=== PATIENT | male | born 1950 | race Caucasian/White ===

== ENCOUNTER 2016-04-24 15:08 | Inpatient (IN) | payer OTHER ==
--- NOTE | 2016-04-24 16:35 | PDOC ---
History of Present Illness - General History Source: Patient Exam Limitations: Clinical Condition - History of Present Illness Initial Comments: 04/24/16 16:48 The patient is a 65 yo M with significant past medical history of seizures, hypertension, and Schizophrenia who presents to the emergency department when he was found wondering around the [place] after leaving his assisted living facility, [facility] in [place]. The patient states he was going to the cemetery to look for someones grave. The patient states he got lost coming home from the cemetery. He denies any pain. He denies any headaches, blurry vision. He denies any chest pain or shortness of breath. The patient denies any abdominal pain, nausea, or vomiting. The patient denies recent illness, fevers, or chills. He denies any hallucinations or suicidal ideation. <Lupe Sims - Last Filed: 04/24/16 16:51> - General History Source: Patient, Old Records Exam Limitations: No Limitations <Gillian Sanders - Last Filed: 04/24/16 19:31> - General Chief Complaint: Altered Mental Status Stated Complaint: PSYCH Time Seen by Provider: 04/24/16 16:09 Past History <Lupe Sims - Last Filed: 04/24/16 16:51> - Past Medical History GI Disorders: Yes HTN: Yes Psychiatric Problems: Yes Suicide Attempt (Hx): No - Surgical History Abdominal Surgery: Yes (RECTAL POLYP REMOVED) - Immunization History Immunization Up to Date: Yes - Psycho/Social/Smoking Cessation Hx Anxiety: No Suicidal Ideation: No Smoking Status: No Smoking History: Never smoked Years of Tobacco Use: 0 Number of Cigarettes Smoked Daily: 0 Hx Alcohol Use: No Drug/Substance Use Hx: No Substance Use Type: None <Gillian Sanders - Last Filed: 04/24/16 19:31> - Past Medical History Allergies/Adverse Reactions: Allergies Allergy/AdvReac Type Severity Reaction Status Date / Time No Known Allergies Allergy Verified 04/24/16 15:31 Home Medications: Ambulatory Orders Aspirin [ASA -] 81 mg PO DAILY 02/12/16 Cholecalciferol (Vitamin D3) [Vitamin D3] 2,000 unit PO DAILY 02/12/16 Clonazepam 0.25 mg PO BID 02/12/16 Cyanocobalamin (Vitamin B-12) [Vitamin B-12] 1,000 mcg SL DAILY 02/12/16 Docusate Sodium 240 mg PO HS 02/12/16 Donepezil HCl 5 mg PO DAILY 02/12/16 Ergocalciferol (Vitamin D2) [Vitamin D2] 5,000 unit PO WEEKLY 02/12/16 Levothyroxine Sodium [Levo-T] 75 mcg PO DAILY 02/12/16 Nifedipine ER [Procardia XL -] 60 mg PO DAILY 02/12/16 Omeprazole 20 mg PO BID 02/12/16 Polyethylene Glycol 3350 [[id number]] 17 gm PO DAILY 02/12/16 Aspirin Coated [Ecotrin -] 81 mg PO DAILY #0 tablet.ec 02/19/16 Clonazepam [Klonopin -] 0.25 mg PO BID #60 tablet MDD 2 02/19/16 Donepezil HCl [Aricept -] 5 mg PO DAILY #0 tablet 02/19/16 Levothyroxine [Synthroid -] 75 mcg PO DAILY@0700 tablet 02/19/16 Nifedipine ER [Procardia XL -] 60 mg PO DAILY #0 tab.er.24 02/19/16 Thiothixene [Navane -] 2 mg PO HS capsule 02/19/16 Unobtainable 04/24/16 Review of Systems - Review of Systems Able to Perform ROS?: No (AMS) <Lupe Sims - Last Filed: 04/24/16 16:51> *Physical Exam - Vital Signs Last Vital Signs Temp Pulse Resp BP Pulse Ox 97.6 F 64 18 94/54 96 04/24/16 15:31 04/24/16 15:31 04/24/16 15:31 04/24/16 15:31 04/24/16 15:31 - Physical Exam Comments: 04/24/16 16:49 GENERAL: Awake, alert, and fully oriented, in no acute distress. +Flat affect. HEAD: No signs of trauma EYES: PERRLA, EOMI, sclera anicteric, conjunctiva clear ENT: Auricles normal inspection, hearing grossly normal, nares patent, oropharynx clear without exudates. Moist mucosa NECK: Normal ROM, supple, no lymphadenopathy, JVD, or masses LUNGS: Breath sounds equal, clear to auscultation bilaterally. No wheezes, and no crackles HEART: Regular rate and rhythm, normal S1 and S2, no murmurs, rubs or gallops ABDOMEN: Soft, nontender, normoactive bowel sounds. No guarding, no rebound. No masses EXTREMITIES: Normal range of motion, no edema. No clubbing or cyanosis. No cords, erythema, or tenderness NEUROLOGICAL: Cranial nerves II through XII grossly intact. Normal speech, normal gait SKIN: Warm, Dry, normal turgor, no rashes or lesions noted. <Lupe Sims - Last Filed: 04/24/16 16:51> - Vital Signs Last Vital Signs Temp Pulse Resp BP Pulse Ox 97.6 F 64 18 94/54 96 04/24/16 15:31 04/24/16 15:31 04/24/16 15:31 04/24/16 15:31 04/24/16 15:31 <Gillian Sanders - Last Filed: 04/24/16 19:31> ED Treatment Course - LABORATORY CBC & Chemistry Diagram: 04/24/16 16:54 04/24/16 16:54 <Gillian Sanders - Last Filed: 04/24/16 19:31> Medical Decision Making - Medical Decision Making 04/24/16 16:42 65 y/o male with h/o chronic schizoaffective disorder, hypothyroid disease, DM, seizure d/o-on K[place] who presents to the ED s/p being found wandering in the street looking for Jenni Munoz's grave; he is hypotensive. FSG is 84. The patient denies SI/HI, hallucinations. DDx includes but is not limited to: infection, dehydration, electrolyte abnormality, intoxication, toxic/metabolic derangement. Plan: 1. Labs and urine 2. IVF for hydration 3. CXR 4. Observe and re-evaluate 04/24/16 18:39 Addendum: The labs were reviewed and were remarkable for troponin of 0.45. The patient has no CP and EKG shows NSR at 65 bpm with APC's. Will admit to a monitored setting for serial cardiac enzymes, cardiology consultation and NSTEMI. <Gillian Sanders - Last Filed: 04/24/16 19:31> *DC/Admit/Observation/Transfer - Attestations Scribe Attestion: 04/24/16 16:50 Documentation prepared by Lupe Sims, acting as medical research tech for Gillian Sanders MD. <Lupe Sims - Last Filed: 04/24/16 16:51> - Discharge Dispostion Admit: Yes - Attestations Physician Attestion: 04/24/16 18:40 I, Dr. Gillian Sanders, attest that the scribes documentation that appears above has been prepared under my direction and personally reviewed by me in its entirety. I confirmed that the note above accurately reflects all work, treatment, procedures, and medical decision-making performed by me. <Gillian Sanders - Last Filed: 04/24/16 19:31> Diagnosis at time of Disposition: Precordial chest pain - Discharge Dispostion Condition at time of disposition: Stable
[2016-04-24] MEDS ORDERED: SODIUM CHLORIDE 1,000 ML IV STA (16:38)
[2016-04-24 17:12] LABS: BASOPHIL 0.4 % (0-2.0); EOSINOPHIL 0.1 % (0-4.5); MCH 32.1 pg (25.7-33.7); MCHC 33.7 g/dl (32.0-35.9); MEAN CELL VOLUME 95.3 fl (80-96); MEAN PLT VOLUME 7.4 fl (7.5-11.1); NEUTROPHILS 83.7 % (42.8-82.8); PLATELET COUNT 196 K/MM3 (134-434); RDW 13.3 % (11.9-15.9); WHITE BLOOD COUNT 10.1 K/mm3 (4.0-10.0)
[2016-04-24 17:36] LABS: URINE APPEARANCE SLCLOUDY; URINE BILIRUBIN NEGATIVE (NEGATIVE); URINE COLOR YELLOW; URINE GLUCOSE (UA) NEGATIVE (NEGATIVE); URINE KETONE 1+ (NEGATIVE); URINE NITRITE NEGATIVE (NEGATIVE); URINE PROTEIN NEGATIVE (NEGATIVE); URINE UROBILINOGEN NEGATIVE E.U./dl (0.2-1.0)
[2016-04-24 17:40] LABS: URINE BLOOD 1+ (NEGATIVE); URINE LEUK ESTERASE 2+ (NEGATIVE)
[2016-04-24 17:45] LABS: ALBUMIN 3.9 g/dl (3.4-5.0); ANION GAP 10 (8-16); BILIRUBIN,TOTAL 0.5 mg/dL (0.2-1.0); CO2 28 mmol/L (21-32); CREATININE 0.9 mg/dL (0.7-1.3); GLUCOSE,RANDOM 77 mg/dL (74-106); SGOT/AST 35 U/L (15-37); SGPT/ALT 17 U/L (12-78); TOT PROT 7.2 g/dl (6.4-8.2)
[2016-04-24 17:47] LABS: ALK PHOS 99 U/L (45-117); TROPONIN I 0.45 ng/ml (0.00-0.05)
[2016-04-24 17:57] LABS: MAGNESIUM 2.3 mg/dL (1.8-2.4)
[2016-04-24 18:04] LABS: URINE HYALINE CAST 5 /lpf; URINE MUCUS RARE; URINE RBC 1 /hpf (0-3); URINE WBC 64 /hpf (3-5)
[2016-04-24 18:20] LABS: URINE MARIJUANA THC NEGATIVE ng/ml (CUTOFF=50)
[2016-04-24] MEDS ORDERED: ACETAMINOPHEN 325 MG TABLET (FP) PO ONE (19:03)
[2016-04-24] MEDS ORDERED: ACETAMINOPHEN 325 MG TABLET (FP) ONE (19:22)
[2016-04-24] MEDS ORDERED: ASPIRIN 81 MG CHEWABLE TABLETS PO ONE (19:30)
[2016-04-24] MEDS ORDERED: ASPIRIN 81 MG CHEWABLE TABLETS ONE (19:40)
[2016-04-25] MEDS: THIOTHIXENE 1 MG PO SCH ×2 (00:05→22:15)
[2016-04-25] MEDS: DOCUSATE SODIUM 100 MG CAPSULE (FP) PO SCH ×2 (00:05→22:14)
[2016-04-25] MEDS: clonazePAM 0.5 MG TABLET PO SCH ×3 (00:06→22:14)
[2016-04-25] MEDS: PANTOPRAZOLE 20 MG TABLET (FP) PO SCH ×3 (00:06→22:15)
[2016-04-25 01:09] LABS: TROPONIN I 0.97 ng/ml (0.00-0.05)
[2016-04-25 01:15] VITALS: BMI 23.0
--- NOTE | 2016-04-25 02:07 | HOSP ---
Physical Examination Vital Signs: Vital Signs Temperature 97.8 F 04/24/16 22:00 Pulse Rate 64 04/24/16 22:00 Respiratory Rate 20 04/24/16 22:00 Blood Pressure 122/75 04/24/16 22:00 O2 Sat by Pulse Oximetry (%) 95 04/24/16 22:00 Hospitalist Encounter Assessment: Was called by RN about rising troponin, serial EKGs ordered which showed no ST- T changes. Patient is under the care of Dr. Diaz, RN advised to inform this doctor about results of studies and she verbalized understanding.
[2016-04-25 08:11] LABS: EOSINOPHIL 1.7 % (0-4.5); MCH 32.5 pg (25.7-33.7); MCHC 34.1 g/dl (32.0-35.9); MEAN CELL VOLUME 95.2 fl (80-96); MEAN PLT VOLUME 7.5 fl (7.5-11.1); NEUTROPHILS 56.5 % (42.8-82.8); PLATELET COUNT 148 K/MM3 (134-434); WHITE BLOOD COUNT 5.5 K/mm3 (4.0-10.0)
[2016-04-25 08:50] LABS: ALBUMIN 3.4 g/dl (3.4-5.0); ANION GAP 10 (8-16); BILIRUBIN,TOTAL 0.8 mg/dL (0.2-1.0); CALCIUM 8.4 mg/dL (8.5-10.1); CHOLESTEROL 123 mg/dL (50-200); CO2 28 mmol/L (21-32); CREATININE 0.9 mg/dL (0.7-1.3); GLUCOSE,RANDOM 78 mg/dL (74-106); TOT PROT 6.5 g/dl (6.4-8.2)
[2016-04-25 08:51] LABS: ALK PHOS 82 U/L (45-117); SGOT/AST 40 U/L (15-37); SGPT/ALT 16 U/L (12-78)
[2016-04-25 09:25] LABS: LDL CHOLESTEROL (ONLY SJRH) 71 mg/dL (5-100)
[2016-04-25] MEDS: ASPIRIN 325 MG TABLET PO SCH (10:17)
[2016-04-25] MEDS: NIFEdipine E.R 60 MG TABLET (UD) PO SCH (10:17)
--- NOTE | 2016-04-25 11:06 | CON.CARD ---
Consult Consult Specialty:: Cardiology Referred by:: Dr. Diaz Reason for Consultation:: Cardiac evaluation - History of Present Illness Chief Complaint: Leg pain History of Present Illness: Patient is a 65 year old male with underlying history of seizures, hypertension and schizophrenia who presented to ED after wandering in [place] after leaving the assisted living facility in [place]. He states that he was walking in the cemetery but got lost coming home. It is unclear how he got to [place]. He denies chest pain, shortness of breath or palpitation. Denies paroxysmal nocturnal dyspea or orthopnea. Denies fever or chills. Denies headache or lightheadedness. Cardiology consultation was called for further evaluation especially with elevated troponin level. 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 disorder) Cardio/Vascular: Yes: HTN, Hyperlipdemia, Other (orthostatic hypotension) Psych: Yes: Schizophrenia Endocrine: Yes: Diabetes Mellitus - Past Surgical History Past Surgical History: Yes: Colonoscopy, Hernia Repair - Alcohol/Substance Use Hx Alcohol Use: No - Smoking History Smoking history: Unknown if ever smoked Have you smoked in the past 12 months: No Aproximately how many cigarettes per day: 0 - Social History Usual Living Arrangement: Assisted Living Home Medications - Allergies Allergies/Adverse Reactions: Allergies Allergy/AdvReac Type Severity Reaction Status Date / Time No Known Allergies Allergy Verified 04/24/16 15:31 - Home Medications Home Medications: Ambulatory Orders Aspirin [ASA -] 81 mg PO DAILY 02/12/16 Cholecalciferol (Vitamin D3) [Vitamin D3] 2,000 unit PO DAILY 02/12/16 Clonazepam 0.25 mg PO BID 02/12/16 Cyanocobalamin (Vitamin B-12) [Vitamin B-12] 1,000 mcg SL DAILY 02/12/16 Docusate Sodium 240 mg PO HS 02/12/16 Donepezil HCl 5 mg PO DAILY 02/12/16 Ergocalciferol (Vitamin D2) [Vitamin D2] 5,000 unit PO WEEKLY 02/12/16 Levothyroxine Sodium [Levo-T] 75 mcg PO DAILY 02/12/16 Nifedipine ER [Procardia XL -] 60 mg PO DAILY 02/12/16 Omeprazole 20 mg PO BID 11/14/16 Polyethylene Glycol 3350 [[id number]] 17 gm PO DAILY 02/12/16 Aspirin Coated [Ecotrin -] 81 mg PO DAILY #0 tablet.ec 02/19/16 Clonazepam [Klonopin -] 0.25 mg PO BID #60 tablet MDD 2 02/19/16 Donepezil HCl [Aricept -] 5 mg PO DAILY #0 tablet 02/19/16 Levothyroxine [Synthroid -] 75 mcg PO DAILY@0700 tablet 02/19/16 Nifedipine ER [Procardia XL -] 60 mg PO DAILY #0 tab.er.24 02/19/16 Thiothixene [Navane -] 2 mg PO HS capsule 02/19/16 Unobtainable 04/24/16 Family Disease History - Family Disease History Family History: Unable to Obtain Review of Systems - Review of Systems Constitutional: denies: Chills, Fever Cardiovascular: denies: Chest Pain, Palpitations, Shortness of Breath Respiratory: denies: Cough, Hemoptysis, Orthopnea, PND, SOB, SOB on Exertion Gastrointestinal: denies: Abdominal Pain, Constipation, Diarrhea, Melena, Nausea , Rectal Bleeding, Vomiting Musculoskeletal: reports: Joint Pain Neurological: denies: Dizziness, Headache, Seizure, Syncope Vital Signs: Vital Signs Temperature 98.2 F 04/25/16 08:05 Pulse Rate 62 04/25/16 08:05 Respiratory Rate 14 04/25/16 08:05 Blood Pressure 134/80 04/25/16 08:05 O2 Sat by Pulse Oximetry (%) 95 04/24/16 22:00 Neck: Yes: Supple Respiratory: Yes: CTA Bilaterally Gastrointestinal: Yes: Normal Bowel Sounds, Soft. No: Tenderness Cardiovascular: Yes: Regular Rate and Rhythm JVD: No Carotid Bruit: No PMI: Non-Displaced Heart Sounds: Yes: S1, S2 Murmur: Yes: Systolic Murmur, Grade 2 Edema: No - Other Data Labs, Other Data: CBC, BMP 04/25/16 06:10 04/25/16 06:10 Laboratory Results - last 24 hr 04/24/16 04/24/16 04/24/16 16:37 16:43 16:54 WBC 10.1 H D RBC 3.70 L Hgb 11.9 Hct 35.3 L MCV 95.3 MCHC 33.7 RDW 13.3 Plt Count 196 D MPV 7.4 L Neutrophils % 83.7 H Lymphocytes % 8.9 D Monocytes % 6.9 Eosinophils % 0.1 D Basophils % 0.4 Sodium Potassium Chloride Carbon Dioxide Anion Gap BUN Creatinine Creat Clearance w eGFR POC Glucometer 84.47791 Random Glucose Calcium Phosphorus Magnesium Total Bilirubin AST ALT Alkaline Phosphatase Creatine Kinase Creatine Kinase Index CK-MB (CK-2) CK-MB (CK-2) Rel Index Troponin I Total Protein Albumin Triglycerides Cholesterol Total LDL Cholesterol HDL Cholesterol Urine Color Yellow Urine Appearance Slcloudy Urine pH 5.0 Ur Specific [place] 1.013 Urine Protein Negative Urine Glucose (UA) Negative Urine Ketones 1+ H Urine Blood 1+ H Urine Nitrite Negative Urine Bilirubin Negative Urine Urobilinogen Negative Ur Leukocyte Esterase 2+ H Urine RBC 1 Urine WBC 64 Hyaline Casts 5 Urine Mucus Rare Opiates Screen Methadone Screen Barbiturate Screen Phencyclidine Screen Ur Amphetamines Screen MDMA (Ecstasy) Screen Benzodiazepines Screen Cocaine Screen U Marijuana (THC) Screen Alcohol, Quantitative 04/24/16 04/24/16 04/24/16 16:54 16:54 16:54 WBC RBC Hgb Hct MCV MCHC RDW Plt Count MPV Neutrophils % Lymphocytes % Monocytes % Eosinophils % Basophils % Sodium 143 Potassium 4.6 Chloride 105 Carbon Dioxide 28 Anion Gap 10 BUN 21 H D Creatinine 0.9 D Creat Clearance w eGFR > 60 POC Glucometer Random Glucose 77 Calcium 9.0 Phosphorus 4.0 Magnesium 2.3 Total Bilirubin 0.5 D AST 35 D ALT 17 D Alkaline Phosphatase 99 D Creatine Kinase 871 H D Creatine Kinase Index 1.3 CK-MB (CK-2) 11.423 H CK-MB (CK-2) Rel Index Troponin I 0.45 H D Total Protein 7.2 D Albumin 3.9 D Triglycerides Cholesterol Total LDL Cholesterol HDL Cholesterol Urine Color Urine Appearance Urine pH Ur Specific [place] Urine Protein Urine Glucose (UA) Urine Ketones Urine Blood Urine Nitrite Urine Bilirubin Urine Urobilinogen Ur Leukocyte Esterase Urine RBC Urine WBC Hyaline Casts Urine Mucus Opiates Screen Negative Methadone Screen Negative Barbiturate Screen Negative Phencyclidine Screen Negative Ur Amphetamines Screen Negative MDMA (Ecstasy) Screen Negative Benzodiazepines Screen Negative Cocaine Screen Negative U Marijuana (THC) Screen Negative Alcohol, Quantitative < 5.0 04/24/16 04/24/16 04/24/16 16:54 23:30 23:30 WBC RBC Hgb Hct MCV MCHC RDW Plt Count MPV Neutrophils % Lymphocytes % Monocytes % Eosinophils % Basophils % Sodium Potassium Chloride Carbon Dioxide Anion Gap BUN Creatinine Creat Clearance w eGFR POC Glucometer Random Glucose Calcium Phosphorus Magnesium Total Bilirubin AST ALT Alkaline Phosphatase Creatine Kinase 1049 H D Creatine Kinase Index 1.1 CK-MB (CK-2) 11.646 H CK-MB (CK-2) Rel Index Cancelled Cancelled Troponin I 0.97 H* D Total Protein Albumin Triglycerides Cholesterol Total LDL Cholesterol HDL Cholesterol Urine Color Urine Appearance Urine pH Ur Specific [place] Urine Protein Urine Glucose (UA) Urine Ketones Urine Blood Urine Nitrite Urine Bilirubin Urine Urobilinogen Ur Leukocyte Esterase Urine RBC Urine WBC Hyaline Casts Urine Mucus Opiates Screen Methadone Screen Barbiturate Screen Phencyclidine Screen Ur Amphetamines Screen MDMA (Ecstasy) Screen Benzodiazepines Screen Cocaine Screen U Marijuana (THC) Screen Alcohol, Quantitative 04/25/16 04/25/16 06:10 06:10 WBC 5.5 D RBC 3.26 L Hgb 10.6 L D Hct 31.0 L MCV 95.2 MCHC 34.1 RDW 13.0 Plt Count 148 D MPV 7.5 Neutrophils % 56.5 D Lymphocytes % 30.8 D Monocytes % 10.0 Eosinophils % 1.7 D Basophils % 1.0 Sodium 140 Potassium 3.7 Chloride 102 Carbon Dioxide 28 Anion Gap 10 BUN 20 H Creatinine 0.9 Creat Clearance w eGFR > 60 POC Glucometer Random Glucose 78 Calcium 8.4 L Phosphorus Magnesium Total Bilirubin 0.8 D AST 40 H ALT 16 Alkaline Phosphatase 82 Creatine Kinase Creatine Kinase Index CK-MB (CK-2) CK-MB (CK-2) Rel Index Troponin I Total Protein 6.5 Albumin 3.4 Triglycerides 43 D Cholesterol 123 D Total LDL Cholesterol 71 HDL Cholesterol 61 H D Urine Color Urine Appearance Urine pH Ur Specific [place] Urine Protein Urine Glucose (UA) Urine Ketones Urine Blood Urine Nitrite Urine Bilirubin Urine Urobilinogen Ur Leukocyte Esterase Urine RBC Urine WBC Hyaline Casts Urine Mucus Opiates Screen Methadone Screen Barbiturate Screen Phencyclidine Screen Ur Amphetamines Screen MDMA (Ecstasy) Screen Benzodiazepines Screen Cocaine Screen U Marijuana (THC) Screen Alcohol, Quantitative Sinus rhythm no significant ST-T abnormality Imaging - Results Chest X-ray: Report Reviewed (Unremarkable) EKG: Report Reviewed Problem List - Problems (1) Precordial chest pain Code(s): R07.2 - PRECORDIAL PAIN (2) HTN (hypertension) Code(s): I10 - ESSENTIAL (PRIMARY) HYPERTENSION Qualifiers: Hypertension type: essential hypertension Qualified Code(s): I10 - Essential (primary) hypertension (3) Schizoaffective disorder Code(s): F25.9 - SCHIZOAFFECTIVE DISORDER, UNSPECIFIED Qualifiers: Schizoaffective disorder type: unspecified Qualified Code(s): F25.9 - Schizoaffective disorder, unspecified (4) Demand ischemia Code(s): I24.8 - OTHER FORMS OF ACUTE ISCHEMIC HEART DISEASE Assessment/Plan 1. Elevated troponin - demand ischemia, etiology unclear rule out CAD 2. HTN 3. Questionable history of Diabetes Mellitus - serum glucose normal 4. Schizophrenia vs. Schizo affective disorder PLAN: 1. Serial cardiac enzyme 2. Transthoracic echocardiography to assess LV and valvular function 3. Continue Procardia XL 4. ASA Further plans are to follow. Would maintain medical therapy Jayson Lenz MD
--- NOTE | 2016-04-25 14:12 | EKG ---
Test Reason : Blood Pressure : / mmHG Vent. Rate : 060 BPM Atrial Rate : 060 BPM P-R Int : 144 ms QRS Dur : 106 ms QT Int : 428 ms P-R-T Axes : 063 051 042 degrees QTc Int : 428 ms NORMAL SINUS RHYTHM MINIMAL VOLTAGE CRITERIA FOR LVH, MAY BE NORMAL VARIANT BORDERLINE ECG WHEN COMPARED WITH ECG OF 24-APR-2016 16:50, SINUS RHYTHM HAS REPLACED ATRIAL FIBRILLATION Confirmed by JAIRO LOTT, CHARLEEN ([id number]) on 04/25/2016 2:12:04 PM Referred By: Confirmed By:CHARLEEN GILL MD
--- NOTE | 2016-04-25 14:17 | EKG ---
Test Reason : Blood Pressure : / mmHG Vent. Rate : 065 BPM Atrial Rate : 065 BPM P-R Int : 000 ms QRS Dur : 096 ms QT Int : 434 ms P-R-T Axes : 000 060 050 degrees QTc Int : 451 ms SINUS RHYTHM WITH PREMATURE VENTRICULAR OR ABERRANTLY CONDUCTED COMPLEXES ABNORMAL ECG Confirmed by CHARLEEN GILL MD ([id number]) on 04/25/2016 2:17:06 PM Referred By: Confirmed By:CHARLEEN GILL MD
--- NOTE | 2016-04-25 16:14 | HP ---
Admitting History and Physical - Admission Chief Complaint: lost in [facility] History of Present Illness: 65 yo male with history of Schizoaffective disorder, got lost after walking for 2 hours trying to find the grave of Jenni Arndt. The previously mentioned grave is located in [facility] while the patient was found in [facility]. He was brought by a police man to [facility]. During the work up the patient was found to have elevated cardiac enzymes. He is not complaining of any chest pain, palpitations, or dyspnea. His only complaint are pain in the lower extremities. During my examination he is comfortable alert and oriented. 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) Cardiovascular: Yes: HTN, Hyperlipdemia, Other (orthostatic hypotension) Gastrointestinal: Yes: Constipation, Other (SBO, left uiguinal hernia repair) Heme/Onc: Yes: B12 Deficiency Psych: Yes: Schizophrenia Endocrine: Yes: Diabetes Mellitus Dermatology: Yes: Other (Vitiligo) - Past Surgical History Past Surgical History: Yes: Colonoscopy, Hernia Repair - Smoking History Smoking history: Unknown if ever smoked Have you smoked in the past 12 months: No Aproximately how many cigarettes per day: 0 - Alcohol/Substance Use Hx Alcohol Use: No Home Medications - Allergies Allergies/Adverse Reactions: Allergies Allergy/AdvReac Type Severity Reaction Status Date / Time No Known Allergies Allergy Verified 04/24/16 15:31 - Home Medications Home Medications: Ambulatory Orders Aspirin [ASA -] 81 mg PO DAILY 02/12/16 Cholecalciferol (Vitamin D3) [Vitamin D3] 2,000 unit PO DAILY 02/12/16 Clonazepam 0.25 mg PO BID 02/12/16 Cyanocobalamin (Vitamin B-12) [Vitamin B-12] 1,000 mcg SL DAILY 02/12/16 Docusate Sodium 240 mg PO HS 02/12/16 Donepezil HCl 5 mg PO DAILY 02/12/16 Ergocalciferol (Vitamin D2) [Vitamin D2] 5,000 unit PO WEEKLY 02/12/16 Levothyroxine Sodium [Levo-T] 75 mcg PO DAILY 02/12/16 Nifedipine ER [Procardia XL -] 60 mg PO DAILY 02/12/16 Omeprazole 20 mg PO BID 02/12/16 Polyethylene Glycol 3350 [[id number]] 17 gm PO DAILY 02/12/16 Aspirin Coated [Ecotrin -] 81 mg PO DAILY #0 tablet.ec 02/19/16 Clonazepam [Klonopin -] 0.25 mg PO BID #60 tablet MDD 2 02/19/16 Donepezil HCl [Aricept -] 5 mg PO DAILY #0 tablet 02/19/16 Levothyroxine [Synthroid -] 75 mcg PO DAILY@0700 tablet 02/19/16 Nifedipine ER [Procardia XL -] 60 mg PO DAILY #0 tab.er.24 02/19/16 Thiothixene [Navane -] 2 mg PO HS capsule 02/19/16 Unobtainable 04/24/16 Review of Systems - Review of Systems Constitutional: reports: No Symptoms Eyes: reports: No Symptoms HENT: reports: No Symptoms Neck: reports: No Symptoms Cardiovascular: reports: No Symptoms Respiratory: reports: No Symptoms Gastrointestinal: reports: No Symptoms Genitourinary: reports: No Symptoms Breasts: reports: No Symptoms Reported Musculoskeletal: reports: Muscle Pain, Other (the upper thighs bilaterally) Integumentary: reports: No Symptoms Neurological: reports: No Symptoms Physical Examination Vital Signs: Vital Signs Temperature 97.3 F L 04/25/16 14:18 Pulse Rate 61 04/25/16 14:18 Respiratory Rate 14 04/25/16 14:18 Blood Pressure 115/63 04/25/16 14:18 O2 Sat by Pulse Oximetry (%) 95 04/25/16 09:00 Labs: CBC, BMP 04/25/16 06:10 04/25/16 06:10 Problem List - Problems (1) Demand ischemia Code(s): I24.8 - OTHER FORMS OF ACUTE ISCHEMIC HEART DISEASE (2) HTN (hypertension) Code(s): I10 - ESSENTIAL (PRIMARY) HYPERTENSION Qualifiers: Hypertension type: essential hypertension Qualified Code(s): I10 - Essential (primary) hypertension (3) Schizoaffective disorder Code(s): F25.9 - SCHIZOAFFECTIVE DISORDER, UNSPECIFIED Qualifiers: Schizoaffective disorder type: unspecified Qualified Code(s): F25.9 - Schizoaffective disorder, unspecified (4) Cholelithiases Code(s): K80.20 - CALCULUS OF GALLBLADDER W/O CHOLECYSTITIS W/O OBSTRUCTION
[2016-04-26 08:50] LABS: TROPONIN I 0.67 ng/ml (0.00-0.05)
[2016-04-26] MEDS: ASPIRIN 325 MG TABLET PO SCH (09:49)
[2016-04-26] MEDS: PANTOPRAZOLE 20 MG TABLET (FP) PO SCH ×2 (09:49→21:38)
[2016-04-26] MEDS: NIFEdipine E.R 60 MG TABLET (UD) PO SCH (09:49)
[2016-04-26] MEDS: clonazePAM 0.5 MG TABLET PO SCH ×2 (09:49→21:38)
--- NOTE | 2016-04-26 11:05 | PN ---
Progress Note (short form) - Note Progress Note: S: 65 year old gentleman, with history of hypertension, psychological disorder, seizures, who resides in an adult assisted living facility, was lost while trying to get to a cemetery and was found in the [place]. He denies having chest pain or discomfort either at rest or with exertion, no exertional dyspnea was reported, no PND or orthopnea. Patient also has history of hyperthyroidism, vitamin D deficiency. Patient was found to have elevation of total CK and troponin levels. Active Medications Generic Name Dose Route Start Last Admin Trade Name Veronica PRN Reason Stop Dose Admin Aspirin 325 mg 04/25/16 10:00 04/26/16 09:49 Asa - PO 325 mg DAILY MARIA TERESA Administration Clonazepam 0.25 mg 04/24/16 22:45 04/26/16 09:49 Klonopin - PO 0.25 mg BID MARIA TERESA Administration Docusate Sodium 200 mg 04/24/16 22:45 04/25/16 22:14 Colace - PO 200 mg HS MARIA TERESA Administration Nifedipine 60 mg 04/25/16 10:00 04/26/16 09:49 Procardia Xl - PO 60 mg DAILY MARIA TERESA Administration Pantoprazole Sodium 20 mg 04/24/16 22:45 04/26/16 09:49 Protonix - PO 20 mg BID MARIA TERESA Administration Thiothixene 2 mg 04/24/16 22:30 04/25/16 22:15 Navane - PO 2 mg HS MARIA TERESA Administration O: 65 year old male was in no acute distress, no pallor, cyanosis, clubbing, or jaundice. Last Vital Signs Temp Pulse Resp BP Pulse Ox 98.2 F 58 L Regular 14 130/86 100 04/26/16 08:00 04/26/16 08:00 04/26/16 08:00 04/26/16 08:00 04/25/16 21:00 Neck: Supple, no JVD, negative HJR, carotids were equal and upstrokes were normal, no thyromegaly appreciated. Heart: PMI was in the 5th intercostal space, no heaves or thrills, S1 and S2 were normal. No murmurs or gallops were appreciated. Lungs: Clear on auscultation bilaterally. Abdomen: Soft, nontender, no hepatosplenomegaly appreciated, and no palpable masses were felt. Extremities: No calf tenderness or dependent edema. Pulses are normal. CBC, BMP 04/25/16 06:10 04/25/16 06:10 Laboratory Results - last 24 hr 04/26/16 04/26/16 05:35 05:35 Creatine Kinase 863 H Creatine Kinase Index 0.6 CK-MB (CK-2) 5.482 H CK-MB (CK-2) Rel Index Cancelled Troponin I 0.67 H* D Impression: (1) Elevated Ck and Troponin are consistent with mycordial injury. Code(s): R79.89 - OTHER SPECIFIED ABNORMAL FINDINGS OF BLOOD CHEMISTRY (2) Anemia with further drop in hematocrit, etiology needs to be determined. Code(s): D64.9 - ANEMIA, UNSPECIFIED (3) HTN (hypertension) Code(s): I10 - ESSENTIAL (PRIMARY) HYPERTENSION Qualifiers: Hypertension type: essential hypertension Qualified Code(s): I10 - Essential (primary) hypertension (4) Schizoaffective disorder Code(s): F25.9 - SCHIZOAFFECTIVE DISORDER, UNSPECIFIED Qualifiers: Schizoaffective disorder type: unspecified Qualified Code(s): F25.9 - Schizoaffective disorder, unspecified (5) History of seizure disorder Code(s): R56.9 - UNSPECIFIED CONVULSIONS Recommendations: 1. Add beta blockers to the regimen. 2. Evaluation of anemia. 3. Patient should have a stress test prior to discharge. Attestation: Documentation prepared by Abhilash Sauceda, acting as bacteriologist medical for Rajeev Corbett MD.
[2016-04-26] MEDS: METOPROLOL SUCCINATE 25 MG TAB.SR.24H (FP) PO SCH (13:42)
--- NOTE | 2016-04-26 14:01 | PN ---
Progress Note, Physician Chief Complaint: PAtient is agitated and wants to go home , denies any chest pain, or palpitation. HE IS DRESSED AND READY TO GO History of Present Illness: 65 yo male found to have elevated cardiac enzymes after walking for 2 hours. The patient did not recall any episodes of chest pain or dyspnea. He is asymptomatic since admission and is waiting for a stress test. His cardiac enzymes have been minimally elevated but without EKG changes - Current Medication List Current Medications: Active Medications Aspirin (Asa -) 325 mg PO DAILY [facility] Last Admin: 04/26/16 09:49 Dose: 325 mg Clonazepam (Klonopin -) 0.25 mg PO BID [facility] Last Admin: 04/26/16 09:49 Dose: 0.25 mg Docusate Sodium (Colace -) 200 mg PO [facility] Last Admin: 04/25/16 22:14 Dose: 200 mg Metoprolol Succinate (Toprol Xl -) 25 mg PO DAILY [facility] Last Admin: 04/26/16 13:42 Dose: 25 mg Nifedipine (Procardia Xl -) 60 mg PO DAILY [facility] Last Admin: 04/26/16 09:49 Dose: 60 mg Pantoprazole Sodium (Protonix -) 20 mg PO BID [facility] Last Admin: 04/26/16 09:49 Dose: 20 mg Thiothixene (Navane -) 2 mg PO [facility] Last Admin: 04/25/16 22:15 Dose: 2 mg - Objective Vital Signs: Vital Signs Temperature 98.2 F 04/26/16 08:00 Pulse Rate 58 L 04/26/16 08:00 Respiratory Rate 14 04/26/16 08:00 Blood Pressure 130/86 04/26/16 08:00 O2 Sat by Pulse Oximetry (%) 96 04/26/16 09:00 Constitutional: Yes: No Distress, Calm Eyes: Yes: Conjunctiva Clear, EOM Intact HENT: Yes: Atraumatic, Normocephalic, Drooling Neck: Yes: Supple, Trachea Midline Cardiovascular: Yes: Regular Rate and Rhythm, S1, S2 Respiratory: Yes: Regular, CTA Bilaterally Gastrointestinal: Yes: Normal Bowel Sounds, Soft, Abdomen, Obese ...Rectal Exam: Yes: Deferred Breast(s): Yes: WNL Musculoskeletal: No: Joint Stiffness, Muscle Weakness Extremities: Yes: WNL. No: Calf Tenderness Edema: No Integumentary: Yes: WNL Labs: CBC, BMP 04/25/16 06:10 04/25/16 06:10 Problem List - Problems (1) Demand ischemia Assessment/Plan: with elevation of the cardiac enzymes but no complaints of chest pain as per patient Code(s): I24.8 - OTHER FORMS OF ACUTE ISCHEMIC HEART DISEASE (2) HTN (hypertension) Assessment/Plan: controlled Code(s): I10 - ESSENTIAL (PRIMARY) HYPERTENSION Qualifiers: Hypertension type: essential hypertension Qualified Code(s): I10 - Essential (primary) hypertension (3) Schizoaffective disorder Assessment/Plan: controlled , no delusions Code(s): F25.9 - SCHIZOAFFECTIVE DISORDER, UNSPECIFIED Qualifiers: Schizoaffective disorder type: unspecified Qualified Code(s): F25.9 - Schizoaffective disorder, unspecified (4) Cholelithiases Assessment/Plan: no complaints Code(s): K80.20 - CALCULUS OF GALLBLADDER W/O CHOLECYSTITIS W/O OBSTRUCTION
[2016-04-26] MEDS ORDERED: PT OWN MED DRAWER 7, Y5N ONE (21:16)
[2016-04-26] MEDS: DOCUSATE SODIUM 100 MG CAPSULE (FP) PO SCH (21:38)
[2016-04-26] MEDS: THIOTHIXENE 1 MG PO SCH (21:38)
[2016-04-27] MEDS: METOPROLOL SUCCINATE 25 MG TAB.SR.24H (FP) PO SCH (09:34)
[2016-04-27] MEDS: ASPIRIN 325 MG TABLET PO SCH (09:34)
[2016-04-27] MEDS: NIFEdipine E.R 60 MG TABLET (UD) PO SCH (09:34)
[2016-04-27] MEDS: PANTOPRAZOLE 20 MG TABLET (FP) PO SCH ×2 (09:34→21:31)
[2016-04-27] MEDS: clonazePAM 0.5 MG TABLET PO SCH ×2 (09:34→21:31)
--- NOTE | 2016-04-27 13:50 | PN ---
Progress Note (short form) - Note Progress Note: Chief Complaint: Events noted, notes reviewed, denies any chest pain or dyspnea History of Present Illness: Seen and examined on telemetry. Events noted, notes reviewed, denies any chest pain or dyspnea Patient stated that he wants to be D/C home Echocardiography dated 04/25/16 revealed normal LV size and function, with trace AR and TR Medications: Current Medications Aspirin (Asa -) 325 mg PO DAILY [facility] Last Admin: 04/27/16 09:34 Dose: 325 mg Clonazepam (Klonopin -) 0.25 mg PO BID [facility] Last Admin: 04/27/16 09:34 Dose: 0.25 mg Docusate Sodium (Colace -) 200 mg PO [facility] Last Admin: 04/26/16 21:38 Dose: 200 mg Metoprolol Succinate (Toprol Xl -) 25 mg PO DAILY [facility] Last Admin: 04/27/16 09:34 Dose: 25 mg Nifedipine (Procardia Xl -) 60 mg PO DAILY [facility] Last Admin: 04/27/16 09:34 Dose: 60 mg Pantoprazole Sodium (Protonix -) 20 mg PO BID [facility] Last Admin: 04/27/16 09:34 Dose: 20 mg Thiothixene (Navane -) 2 mg PO [facility] Last Admin: 04/26/16 21:38 Dose: 2 mg Review of Systems - Review of Systems Constitutional: denies: Chills, Fever Cardiovascular: As noted above Respiratory: denies: Cough or Sputum Production Gastrointestinal: denies: Nausea, Vomiting, Diarrhea, Constipation or Abdominal Pain Musculoskeletal: reports: Joint Pain Neurological: denies: Dizziness or Headaches Vital Signs: Last Vital Signs Temp Pulse Resp BP Pulse Ox 98 F 56 L 18 119/78 96 04/27/16 08:00 04/27/16 08:00 04/27/16 08:00 04/27/16 08:00 04/26/16 21:00 Neck: Supple Negative JVD No bruit Respiratory: Clear to A&P Bilaterally Cardiovascular: S1 S2 Regular Rate and Rhythm Grade 2/6 SM Gastrointestinal: Soft Benign Normal Bowel Sounds Ext: No Edema Labs: CBC, BMP 04/25/16 06:10 04/25/16 06:10 Assessment/Plan ASSESSMENT: 1. CAD angina pectoris with evidence of demand ischemia with normal LV function and no acute EKG changes 2. HTN 3. Anemia 4. Schizophrenia PLAN: 1. Continue Procardia XL 2. Continue Toprol XL 3. Continue ASA 4. Add Lipitor considering the above noted clinical presentation 5. Recommend MPI study by Friday if agreeable Vanessa Welch MD
--- NOTE | 2016-04-27 17:26 | PN ---
Progress Note, Physician Chief Complaint: PAteint was agitated earlier today and wanted to go home , denies any chest pain, or palpitation. Eating well and with good appetite History of Present Illness: 65 yo male found to have elevated cardiac enzymes after walking for 2 hours. The patient did not recall any episodes of chest pain or dyspnea. He is asymptomatic since admission and is waiting for a stress test. His cardiac enzymes have been minimally elevated but witgout EKG changes - Current Medication List Current Medications: Active Medications Aspirin (Asa -) 325 mg PO DAILY [facility] Last Admin: 04/27/16 09:34 Dose: 325 mg Atorvastatin Calcium (Lipitor -) 10 mg PO [facility] Clonazepam (Klonopin -) 0.25 mg PO BID [facility] Last Admin: 04/27/16 09:34 Dose: 0.25 mg Docusate Sodium (Colace -) 200 mg PO HS [facility] Last Admin: 04/26/16 21:38 Dose: 200 mg Metoprolol Succinate (Toprol Xl -) 25 mg PO DAILY [facility] Last Admin: 04/27/16 09:34 Dose: 25 mg Nifedipine (Procardia Xl -) 60 mg PO DAILY [facility] Last Admin: 04/27/16 09:34 Dose: 60 mg Pantoprazole Sodium (Protonix -) 20 mg PO BID [facility] Last Admin: 04/27/16 09:34 Dose: 20 mg Thiothixene (Navane -) 2 mg PO HS [facility] Last Admin: 04/26/16 21:38 Dose: 2 mg - Objective Vital Signs: Vital Signs Temperature 98 F 04/27/16 08:00 Pulse Rate 52 L 04/27/16 14:00 Respiratory Rate 20 04/27/16 14:00 Blood Pressure 126/72 04/27/16 14:00 O2 Sat by Pulse Oximetry (%) 96 04/26/16 21:00 Constitutional: Yes: No Distress, Calm Eyes: Yes: Conjunctiva Clear, EOM Intact HENT: Yes: Atraumatic, Normocephalic Neck: Yes: Supple, Trachea Midline Cardiovascular: Yes: Regular Rate and Rhythm, S1, S2 Respiratory: Yes: Regular, CTA Bilaterally Gastrointestinal: Yes: Normal Bowel Sounds, Soft. No: Abdomen, Obese, Hepatomegaly, Splenomegaly Extremities: No: Calf Tenderness Edema: No Peripheral Pulses WNL: No Neurological: Yes: Alert, Oriented Psychiatric: Yes: Alert, Oriented Labs: CBC, BMP 04/25/16 06:10 04/25/16 06:10 Problem List - Problems (1) Demand ischemia Assessment/Plan: with elevation of the cardiac enzymes but no complaints of chest pain as per patient Code(s): I24.8 - OTHER FORMS OF ACUTE ISCHEMIC HEART DISEASE (2) HTN (hypertension) Assessment/Plan: controlled Code(s): I10 - ESSENTIAL (PRIMARY) HYPERTENSION Qualifiers: Hypertension type: essential hypertension Qualified Code(s): I10 - Essential (primary) hypertension (3) Schizoaffective disorder Assessment/Plan: controlled , no delusions Code(s): F25.9 - SCHIZOAFFECTIVE DISORDER, UNSPECIFIED Qualifiers: Schizoaffective disorder type: unspecified Qualified Code(s): F25.9 - Schizoaffective disorder, unspecified (4) Cholelithiases Assessment/Plan: no complaints Code(s): K80.20 - CALCULUS OF GALLBLADDER W/O CHOLECYSTITIS W/O OBSTRUCTION
[2016-04-27] MEDS: ATORVASTATIN CA 10 MG TABLET (FP) PO SCH (21:31)
[2016-04-27] MEDS: THIOTHIXENE 1 MG PO SCH (21:31)
[2016-04-27] MEDS: DOCUSATE SODIUM 100 MG CAPSULE (FP) PO SCH (21:31)
[2016-04-28 07:25] LABS: BASOPHIL 0.5 % (0-2.0); EOSINOPHIL 3.6 % (0-4.5); MCH 32.4 pg (25.7-33.7); MCHC 34.4 g/dl (32.0-35.9); MEAN CELL VOLUME 94.2 fl (80-96); MEAN PLT VOLUME 7.6 fl (7.5-11.1); NEUTROPHILS 57.3 % (42.8-82.8); PLATELET COUNT 180 K/MM3 (134-434); WHITE BLOOD COUNT 5.2 K/mm3 (4.0-10.0)
[2016-04-28 08:18] LABS: ALBUMIN 3.6 g/dl (3.4-5.0); ALK PHOS 84 U/L (45-117); ANION GAP 9 (8-16); BILIRUBIN,TOTAL 0.5 mg/dL (0.2-1.0); CALCIUM 8.7 mg/dL (8.5-10.1); CO2 29 mmol/L (21-32); CREATININE 0.8 mg/dL (0.7-1.3); GLUCOSE,RANDOM 79 mg/dL (74-106); SGOT/AST 28 U/L (15-37); SGPT/ALT 17 U/L (12-78); TOT PROT 7.2 g/dl (6.4-8.2); TROPONIN I 0.14 ng/ml (0.00-0.05)
--- NOTE | 2016-04-28 09:54 | PN ---
Progress Note (short form) - Note Progress Note: Chief Complaint: Events noted, notes reviewed, denies any chest pain or dyspnea History of Present Illness: Seen and examined on telemetry. Events noted, notes reviewed, denies any chest pain or dyspnea Plan to proceed with MPi study in AM for further evaluation of CAD considering his clinical presentation Echocardiography dated 04/25/16 revealed normal LV size and function, with trace AR and TR Medications: Current Medications Aspirin (Asa -) 325 mg PO DAILY [facility] Last Admin: 04/27/16 09:34 Dose: 325 mg Atorvastatin Calcium (Lipitor -) 10 mg PO [facility] Last Admin: 04/27/16 21:31 Dose: 10 mg Clonazepam (Klonopin -) 0.25 mg PO BID [facility] Last Admin: 04/27/16 21:31 Dose: 0.25 mg Docusate Sodium (Colace -) 200 mg PO [facility] Last Admin: 04/27/16 21:31 Dose: 200 mg Metoprolol Succinate (Toprol Xl -) 25 mg PO DAILY [facility] Last Admin: 04/27/16 09:34 Dose: 25 mg Nifedipine (Procardia Xl -) 60 mg PO DAILY [facility] Last Admin: 04/27/16 09:34 Dose: 60 mg Pantoprazole Sodium (Protonix -) 20 mg PO BID [facility] Last Admin: 04/27/16 21:31 Dose: 20 mg Thiothixene (Navane -) 2 mg PO [facility] Last Admin: 04/27/16 21:31 Dose: 2 mg Review of Systems - Review of Systems Constitutional: denies: Chills, Fever Cardiovascular: As noted above Respiratory: denies: Cough or Sputum Production Gastrointestinal: denies: Nausea, Vomiting, Diarrhea, Constipation or Abdominal Pain Musculoskeletal: reports: Joint Pain Neurological: denies: Dizziness or Headaches Vital Signs: Last Vital Signs Temp Pulse Resp BP Pulse Ox 97.9 F 52 L 16 115/72 98 04/28/16 06:00 04/28/16 06:00 04/28/16 06:00 04/28/16 06:00 04/27/16 19:39 Neck: Supple Negative JVD No bruit Respiratory: Clear to A&P Bilaterally Cardiovascular: S1 S2 Regular Rate and Rhythm Grade 2/6 SM Gastrointestinal: Soft Benign Normal Bowel Sounds Ext: No Edema Labs: CBC, BMP 04/28/16 05:35 04/28/16 05:35 Assessment/Plan ASSESSMENT: 1. CAD angina pectoris with evidence of demand ischemia with normal LV systolic function and no acute EKG changes 2. HTN 3. Anemia 4. Schizophrenia PLAN: 1. Continue Procardia XL 2. Continue Toprol XL 3. Continue ASA 4. Continue Lipitor 5. MPI study in AM to determine ischemic burden Vanessa Welch MD
[2016-04-28] MEDS: NIFEdipine E.R 60 MG TABLET (UD) PO SCH (10:07)
[2016-04-28] MEDS: clonazePAM 0.5 MG TABLET PO SCH ×2 (10:08→21:02)
[2016-04-28] MEDS: METOPROLOL SUCCINATE 25 MG TAB.SR.24H (FP) PO SCH (10:08)
[2016-04-28] MEDS: PANTOPRAZOLE 20 MG TABLET (FP) PO SCH ×2 (10:08→21:03)
[2016-04-28] MEDS: ASPIRIN 325 MG TABLET PO SCH (10:08)
[2016-04-28] MEDS: DOCUSATE SODIUM 100 MG CAPSULE (FP) PO SCH (21:03)
[2016-04-28] MEDS: THIOTHIXENE 1 MG PO SCH (21:03)
[2016-04-28] MEDS: ATORVASTATIN CA 10 MG TABLET (FP) PO SCH (21:03)
--- NOTE | 2016-04-28 23:11 | PN ---
Progress Note, Physician Chief Complaint: PAtient,with no chest pain, or palpitation. History of Present Illness: 65 yo male found to have elevated cardiac enzymes after walking for 2 hours. The patient did not recall any episodes of chest pain or dyspnea. He is asymptomatic since admission and is waiting for a stress test. His cardiac enzymes have been minimally elevated but without EKG changes and they continue to trend down - Current Medication List Current Medications: Active Medications Aspirin (Asa -) 325 mg PO DAILY [facility] Last Admin: 04/28/16 10:08 Dose: 325 mg Atorvastatin Calcium (Lipitor -) 10 mg PO [facility] Last Admin: 04/28/16 21:03 Dose: 10 mg Clonazepam (Klonopin -) 0.25 mg PO BID [facility] Last Admin: 04/28/16 21:02 Dose: 0.25 mg Docusate Sodium (Colace -) 200 mg PO [facility] Last Admin: 04/28/16 21:03 Dose: 200 mg Metoprolol Succinate (Toprol Xl -) 25 mg PO DAILY [facility] Last Admin: 04/28/16 10:08 Dose: 25 mg Nifedipine (Procardia Xl -) 60 mg PO DAILY [facility] Last Admin: 04/28/16 10:07 Dose: 60 mg Pantoprazole Sodium (Protonix -) 20 mg PO BID [facility] Last Admin: 04/28/16 21:03 Dose: 20 mg Thiothixene (Navane -) 2 mg PO [facility] Last Admin: 04/28/16 21:03 Dose: 2 mg - Objective Vital Signs: Vital Signs Temperature 98.1 F 04/28/16 22:00 Pulse Rate 55 L 04/28/16 22:00 Respiratory Rate 16 04/28/16 22:00 Blood Pressure 143/84 04/28/16 22:00 O2 Sat by Pulse Oximetry (%) 98 04/28/16 21:00 Constitutional: Yes: No Distress, Anxious Eyes: Yes: Conjunctiva Clear, EOM Intact HENT: Yes: Atraumatic, Normocephalic Neck: Yes: Supple, Trachea Midline Cardiovascular: Yes: Regular Rate and Rhythm, S1, S2 Respiratory: Yes: Regular, CTA Bilaterally Gastrointestinal: Yes: Normal Bowel Sounds, Soft, Abdomen, Obese. No: Hepatomegaly, Splenomegaly ...Rectal Exam: Yes: Deferred Breast(s): Yes: WNL Musculoskeletal: Yes: WNL Extremities: Yes: WNL. No: Calf Tenderness Edema: No Peripheral Pulses WNL: Yes Wound/Incision: Yes: Well Approximated Neurological: Yes: Alert, Oriented Psychiatric: Yes: Alert, Oriented Labs: CBC, BMP 04/28/16 05:35 04/28/16 05:35 Problem List - Problems (1) Demand ischemia Assessment/Plan: with elevation of the cardiac enzymes but no complaints of chest pain as per patient cardiac enzymes have been normalizing ECHO with no signs of dismotility EKG with no acute changes treatment with Metoprolol and Lipitor was initiated nuclear stress test is pending and scheduled for tomorrow Code(s): I24.8 - OTHER FORMS OF ACUTE ISCHEMIC HEART DISEASE (2) HTN (hypertension) Assessment/Plan: on Nifedipine Code(s): I10 - ESSENTIAL (PRIMARY) HYPERTENSION Qualifiers: Hypertension type: essential hypertension Qualified Code(s): I10 - Essential (primary) hypertension (3) Schizoaffective disorder Assessment/Plan: controlled , no delusions Code(s): F25.9 - SCHIZOAFFECTIVE DISORDER, UNSPECIFIED Qualifiers: Schizoaffective disorder type: unspecified Qualified Code(s): F25.9 - Schizoaffective disorder, unspecified (4) Cholelithiases Assessment/Plan: no complaints Code(s): K80.20 - CALCULUS OF GALLBLADDER W/O CHOLECYSTITIS W/O OBSTRUCTION
--- NOTE | 2016-04-29 10:22 | DS ---
Physical Examination Vital Signs: Vital Signs Temperature 97 F L 04/29/16 09:01 Pulse Rate 50 L 04/29/16 09:01 Respiratory Rate 18 04/29/16 09:01 Blood Pressure 129/72 04/29/16 09:04 O2 Sat by Pulse Oximetry (%) 98 04/28/16 21:00 Labs: CBC, BMP 04/28/16 05:35 04/28/16 05:35 Discharge Summary Reason For Visit: PRECORDIAL CHEST PAIN Current Active Problems Anemia (Acute) Demand ischemia (Acute) Elevated troponin (Acute) Precordial chest pain (Acute) Seizure (Acute) Condition: Stable - Home Medications Comprehensive Discharge Medication List: Ambulatory Orders Cholecalciferol (Vitamin D3) [Vitamin D3] 2,000 unit PO DAILY 02/12/16 Clonazepam 0.25 mg PO BID 02/12/16 Cyanocobalamin (Vitamin B-12) [Vitamin B-12] 1,000 mcg SL DAILY 02/12/16 Docusate Sodium 240 mg PO HS 02/12/16 Donepezil HCl 5 mg PO DAILY 02/12/16 Ergocalciferol (Vitamin D2) [Vitamin D2] 5,000 unit PO WEEKLY 02/12/16 Levothyroxine Sodium [Levo-T] 75 mcg PO DAILY 02/12/16 Nifedipine ER [Procardia XL -] 60 mg PO DAILY 02/12/16 Omeprazole 20 mg PO BID 02/12/16 Polyethylene Glycol 3350 [[id number]] 17 gm PO DAILY 02/12/16 Clonazepam [Klonopin -] 0.25 mg PO BID #60 tablet MDD 2 02/19/16 Donepezil HCl [Aricept -] 5 mg PO DAILY #0 tablet 02/19/16 Levothyroxine [Synthroid -] 75 mcg PO DAILY@0700 tablet 02/19/16 Nifedipine ER [Procardia XL -] 60 mg PO DAILY #0 tab.er.24 02/19/16 Thiothixene [Navane -] 2 mg PO HS capsule 02/19/16 Clonazepam [Klonopin -] 0.25 mg PO BID #60 tablet MDD 2 04/26/16 Docusate Sodium [Colace -] 200 mg PO HS capsule 04/26/16 Metoprolol Succinate [Toprol XL -] 25 mg PO DAILY #30 tab.sr.24h 04/26/16 Nifedipine ER [Procardia XL -] 60 mg PO DAILY tab.er.24 04/26/16 Pantoprazole Sodium [Protonix -] 20 mg PO BID tablet.ec 04/26/16 Thiothixene [Navane -] 2 mg PO HS capsule 04/26/16 Aspirin [ASA -] 325 mg PO DAILY 30 Days 04/29/16 Atorvastatin Ca [Lipitor] 10 mg PO HS #30 tablet 04/29/16
--- NOTE | 2016-04-29 10:27 | PN ---
Progress Note, Physician Chief Complaint: Events noted Not in distress History of Present Illness: Patient was seen and examined. Awake and alert. Chart was reviewed Denies chest pain, SOB or palpitation Echocardiography dated 04/25/16 revealed normal LV size and function, trace AR and TR - Current Medication List Current Medications: Active Medications Aspirin (Asa -) 325 mg PO DAILY [facility] Last Admin: 04/28/16 10:08 Dose: 325 mg Atorvastatin Calcium (Lipitor -) 10 mg PO [facility] Last Admin: 04/28/16 21:03 Dose: 10 mg Clonazepam (Klonopin -) 0.25 mg PO BID [facility] Last Admin: 04/28/16 21:02 Dose: 0.25 mg Docusate Sodium (Colace -) 200 mg PO [facility] Last Admin: 04/28/16 21:03 Dose: 200 mg Metoprolol Succinate (Toprol Xl -) 25 mg PO DAILY [facility] Last Admin: 04/28/16 10:08 Dose: 25 mg Nifedipine (Procardia Xl -) 60 mg PO DAILY [facility] Last Admin: 04/28/16 10:07 Dose: 60 mg Pantoprazole Sodium (Protonix -) 20 mg PO BID [facility] Last Admin: 04/28/16 21:03 Dose: 20 mg Thiothixene (Navane -) 2 mg PO [facility] Last Admin: 04/28/16 21:03 Dose: 2 mg - Objective Vital Signs: Vital Signs Temperature 97 F L 04/29/16 09:01 Pulse Rate 50 L 04/29/16 09:01 Respiratory Rate 18 04/29/16 09:01 Blood Pressure 129/72 04/29/16 09:04 O2 Sat by Pulse Oximetry (%) 98 04/28/16 21:00 Neck: Yes: Supple Cardiovascular: Yes: Regular Rate and Rhythm, S1, S2 Respiratory: Yes: CTA Bilaterally Gastrointestinal: Yes: Normal Bowel Sounds, Soft. No: Tenderness Edema: No Additional Findings/Remarks: - Review of Systems Constitutional: denies: Chills, Fever Cardiovascular: As noted above Respiratory: denies: Cough or Sputum Production Gastrointestinal: denies: Nausea, Vomiting, Diarrhea, Constipation or Abdominal Pain Musculoskeletal: reports: Joint Pain Neurological: denies: Dizziness or Headaches Labs: CBC, BMP 04/28/16 05:35 04/28/16 05:35 Problem List - Problems (1) Precordial chest pain Code(s): R07.2 - PRECORDIAL PAIN (2) HTN (hypertension) Code(s): I10 - ESSENTIAL (PRIMARY) HYPERTENSION Qualifiers: Hypertension type: essential hypertension Qualified Code(s): I10 - Essential (primary) hypertension (3) Schizoaffective disorder Code(s): F25.9 - SCHIZOAFFECTIVE DISORDER, UNSPECIFIED Qualifiers: Schizoaffective disorder type: unspecified Qualified Code(s): F25.9 - Schizoaffective disorder, unspecified (4) Demand ischemia Code(s): I24.8 - OTHER FORMS OF ACUTE ISCHEMIC HEART DISEASE Assessment/Plan 1. Elevated troponin suggests demand ischemia, but with normal LV systolic function and no ECG abnormality 2. HTN 3. Schizophrenia vs. Schizo affective disorder PLAN: 1. Transthoracic echocardiography report noted 2. Continue Procardia XL and Metoprolol as tolerated 3. Continue Atorvastatin 4. ASA 5. Persantine nuclear myocardial perfusion imaging today Further plans are to follow. Would continue medical therapy Jayson Lenz MD
[2016-04-29] MEDS ORDERED: DIPYRIDAMOLE 50 MG/10 ML VIAL IVPB ONE (10:36)
[2016-04-29] MEDS ORDERED: WATER IVPB ONE (11:30)
[2016-04-29] MEDS ORDERED: DIPYRIDAMOLE STRESS TEST IVPB ONE (11:30)
[2016-04-29] MEDS ORDERED: DEXTROSE 5% IVPB ONE (11:30)
[2016-04-29] MEDS: clonazePAM 0.5 MG TABLET PO SCH ×2 (12:26→21:26)
[2016-04-29] MEDS: ASPIRIN 325 MG TABLET PO SCH (12:26)
[2016-04-29] MEDS: METOPROLOL SUCCINATE 25 MG TAB.SR.24H (FP) PO SCH (12:27)
[2016-04-29] MEDS: NIFEdipine E.R 60 MG TABLET (UD) PO SCH (12:27)
[2016-04-29] MEDS: PANTOPRAZOLE 20 MG TABLET (FP) PO SCH ×2 (12:27→21:25)
--- NOTE | 2016-04-29 18:20 | PN ---
Progress Note, Physician Chief Complaint: PAtient refusing to return to the rest home where he lives,and would lik es ti find a different facility where to live. He denies any chest pain, or palpitation. The Persantin stress test performed today was negative History of Present Illness: 65 yo male found to have elevated cardiac enzymes after walking for 2 hours. The patient did not recall any episodes of chest pain or dyspnea. He is asymptomatic since admission and is waiting for a stress test. His cardiac enzymes have been minimally elevated but without EKG changes - Current Medication List Current Medications: Active Medications Aspirin (Asa -) 325 mg PO DAILY [facility] Last Admin: 04/29/16 12:26 Dose: 325 mg Atorvastatin Calcium (Lipitor -) 10 mg PO [facility] Last Admin: 04/28/16 21:03 Dose: 10 mg Clonazepam (Klonopin -) 0.25 mg PO BID [facility] Last Admin: 04/29/16 12:26 Dose: 0.25 mg Docusate Sodium (Colace -) 200 mg PO [facility] Last Admin: 04/28/16 21:03 Dose: 200 mg Metoprolol Succinate (Toprol Xl -) 25 mg PO DAILY [facility] Last Admin: 04/29/16 12:27 Dose: 25 mg Nifedipine (Procardia Xl -) 60 mg PO DAILY [facility] Last Admin: 04/29/16 12:27 Dose: 60 mg Pantoprazole Sodium (Protonix -) 20 mg PO BID [facility] Last Admin: 04/29/16 12:27 Dose: 20 mg Thiothixene (Navane -) 2 mg PO [facility] Last Admin: 04/28/16 21:03 Dose: 2 mg - Objective Vital Signs: Vital Signs Temperature 98.6 F 04/29/16 15:28 Pulse Rate 54 L 04/29/16 15:28 Respiratory Rate 20 04/29/16 15:28 Blood Pressure 135/82 04/29/16 15:28 O2 Sat by Pulse Oximetry (%) 98 04/29/16 09:00 Constitutional: Yes: No Distress, Calm Eyes: Yes: Conjunctiva Clear, EOM Intact HENT: Yes: Atraumatic, Normocephalic Neck: Yes: Supple, Trachea Midline Cardiovascular: Yes: Regular Rate and Rhythm, S1, S2 Respiratory: Yes: Regular Gastrointestinal: Yes: Normal Bowel Sounds, Soft. No: Hepatomegaly, Splenomegaly Breast(s): Yes: WNL Extremities: Yes: WNL. No: Calf Tenderness Edema: No Peripheral Pulses WNL: Yes Psychiatric: Yes: Alert, Oriented Labs: CBC, BMP 04/28/16 05:35 04/28/16 05:35 Problem List - Problems (1) Demand ischemia Assessment/Plan: with elevation of the cardiac enzymes but no complaints of chest pain as per patient, had a persantin stress test performed today which was negative Code(s): I24.8 - OTHER FORMS OF ACUTE ISCHEMIC HEART DISEASE (2) HTN (hypertension) Assessment/Plan: controlled Code(s): I10 - ESSENTIAL (PRIMARY) HYPERTENSION Qualifiers: Hypertension type: essential hypertension Qualified Code(s): I10 - Essential (primary) hypertension (3) Schizoaffective disorder Assessment/Plan: controlled , no delusions Code(s): F25.9 - SCHIZOAFFECTIVE DISORDER, UNSPECIFIED Qualifiers: Schizoaffective disorder type: unspecified Qualified Code(s): F25.9 - Schizoaffective disorder, unspecified (4) Cholelithiases Assessment/Plan: no complaints Code(s): K80.20 - CALCULUS OF GALLBLADDER W/O CHOLECYSTITIS W/O OBSTRUCTION Assessment/Plan 65 yo male who was admitted and found to have elevated cardiac enzymes. he had a negative persantin stress test today . The patient is clinically asymptomatic and ready for discharge in am
[2016-04-29] MEDS: THIOTHIXENE 1 MG PO SCH (21:25)
[2016-04-29] MEDS: ATORVASTATIN CA 10 MG TABLET (FP) PO SCH (21:25)
[2016-04-29] MEDS: DOCUSATE SODIUM 100 MG CAPSULE (FP) PO SCH (21:26)
--- NOTE | 2016-04-30 06:47 | PN ---
Progress Note (short form) - Note Progress Note: Chief Complaint: Events noted, notes reviewed, denies any chest pain or dyspnea History of Present Illness: Seen and examined on telemetry. Events noted, notes reviewed, denies any chest pain or dyspnea MPI study revealed inferior wall defect compatible with diaphragmatic attenuation with normal LV EF on LV gating calculated at 56% Echocardiography dated 04/25/16 revealed normal LV size and function, with trace AR and TR Medications: Current Medications Aspirin (Asa -) 325 mg PO DAILY [facility] Last Admin: 04/29/16 12:26 Dose: 325 mg Atorvastatin Calcium (Lipitor -) 10 mg PO [facility] Last Admin: 04/29/16 21:25 Dose: 10 mg Clonazepam (Klonopin -) 0.25 mg PO BID [facility] Last Admin: 04/29/16 21:26 Dose: 0.25 mg Docusate Sodium (Colace -) 200 mg PO [facility] Last Admin: 04/29/16 21:26 Dose: 200 mg Metoprolol Succinate (Toprol Xl -) 25 mg PO DAILY [facility] Last Admin: 04/29/16 12:27 Dose: 25 mg Nifedipine (Procardia Xl -) 60 mg PO DAILY [facility] Last Admin: 04/29/16 12:27 Dose: 60 mg Pantoprazole Sodium (Protonix -) 20 mg PO BID [facility] Last Admin: 04/29/16 21:25 Dose: 20 mg Thiothixene (Navane -) 2 mg PO [facility] Last Admin: 04/29/16 21:25 Dose: 2 mg Review of Systems - Review of Systems Constitutional: denies: Chills, Fever Cardiovascular: As noted above Respiratory: denies: Cough or Sputum Production Gastrointestinal: denies: Nausea, Vomiting, Diarrhea, Constipation or Abdominal Pain Musculoskeletal: reports: Joint Pain Neurological: denies: Dizziness or Headaches Vital Signs: Last Vital Signs Temp Pulse Resp BP Pulse Ox 97.8 F 46 L 18 135/75 94 L 04/30/16 02:00 04/30/16 06:00 04/30/16 06:00 04/30/16 06:00 04/29/16 21:00 Neck: Supple Negative JVD No bruit Respiratory: Clear to A&P Bilaterally Cardiovascular: S1 S2 Regular Rate and Rhythm Grade 2/6 SM Gastrointestinal: Soft Benign Normal Bowel Sounds Ext: No Edema Labs: CBC, BMP 04/28/16 05:35 04/28/16 05:35 Assessment/Plan ASSESSMENT: 1. CAD angina pectoris with evidence of demand ischemia with normal LV systolic function and negative MPI study 2. HTN 3. Anemia 4. Schizophrenia PLAN: 1. Continue Procardia XL 2. Continue Toprol XL 3. Continue ASA 4. Continue Lipitor 5. Plan for medical management and if symptoms recur on medical therapy recommend LHC& coronary angiograhy, can be D/C from cardiovascular point of view and outpatient F/U Vanessa Welch MD
[2016-04-30] MEDS: ASPIRIN 325 MG TABLET PO SCH (09:39)
[2016-04-30] MEDS: NIFEdipine E.R 60 MG TABLET (UD) PO SCH (09:39)
[2016-04-30] MEDS: clonazePAM 0.5 MG TABLET PO SCH (09:39)
[2016-04-30] MEDS: PANTOPRAZOLE 20 MG TABLET (FP) PO SCH (09:39)
[2016-04-30] MEDS: METOPROLOL SUCCINATE 25 MG TAB.SR.24H (FP) PO SCH (09:39)
[2016-04-30 10:33] VITALS: BP 117/66; PULSE 51; TEMP 98
== END 2016-04-30 11:00 | disposition home or self-care (01) | DRG 303 ==
LOC: JER 15:08 → UNDOADMIN 19:47 → JERBED 19:47 → UNDOADMIN 22:07 → INTOOBSV 23:00 → JERBED 23:00 → OBSVTOIN 23:00 → JERBED 23:20 → J4W 23:20
PROVIDERS: ADMIT Internal Medicine; ATTEND Internal Medicine
DX: I25.119 Atherosclerotic heart disease of native coronary artery with unspecified angina pectoris (principal); I24.8 Other forms of acute ischemic heart disease; F25.9 Schizoaffective disorder, unspecified; G40.909 Epilepsy, unspecified, not intractable, without status epilepticus; I10 Essential (primary) hypertension; D64.9 Anemia, unspecified; K80.20 Calculus of gallbladder without cholecystitis without obstruction; I25.10 Atherosclerotic heart disease of native coronary artery without angina pectoris
CPT/HCPCS: 36415; 71010-TC; 78452-TC; 80053; 80061; 80307; 81003; 81015; 82550; 82553; 83721; 83735; 84100; 84484; 85025; 93005; 93010; 93017; 93306-TC; 99282-25; A9502; J1245

== ENCOUNTER 2016-06-17 19:28 | Emergency (ER) | payer OTHER ==
[2016-06-17 19:35] VITALS: BP 145/92; PULSE 51; TEMP 98.6; BMI 24.2
--- NOTE | 2016-06-17 19:35 | PDOC ---
Rapid Medical Evaluation Chief Complaint: Hematuria Time Seen by Provider: 06/17/16 19:31 Medical Evaluation: Allergies Allergy/AdvReac Type Severity Reaction Status Date / Time No Known Allergies Allergy Verified 06/17/16 19:32 06/17/16 19:33 RME Note: I have performed a brief, in-person evaluation of this patient . This patient presents with CC: painless hematuria x this pm Pertinent PE findings are: HR= 51, B/P= 145/81 I have ordered: UC, UA The patient will proceed to ED for further evaluation. JR
--- NOTE | 2016-06-17 20:03 | PDOC ---
History of Present Illness - General History Source: Patient Exam Limitations: No Limitations - History of Present Illness Initial Comments: 06/17/16 20:26 The patient is a 65 year old male with significant past medical history of schizophrenia, hypertension, hyperlipidemia, and diabetes who presents to the ED with hematuria prior to arrival. Patient reports after using the bathroom, he noted his urine to be a grape color. Denies ever experiencing this before. Denies suprapubic pain, dysuria, urgency, or frequency. The patient denies fever, chills, cough, SOB, chest pain, and palpitations. The patient denies nausea, vomiting, and diarrhea. Allergies: NKDA Social History: No alcohol, tobacco, or drug use reported. Past Surgical History: Colonoscopy, hernia repair, rectal polyp removed PCP: Dr. Cristy Diaz <Ruby Horne - Last Filed: 06/18/16 00:40> - General History Source: Patient <Abhilash Bhatia - Last Filed: 06/18/16 00:49> - General Chief Complaint: Hematuria Stated Complaint: BLOOD IN URINE Time Seen by Provider: 06/17/16 19:31 Past History <Ruby Horne - Last Filed: 06/18/16 00:40> - Past Medical History GI Disorders: Yes HTN: Yes Psychiatric Problems: Yes Suicide Attempt (Hx): No - Surgical History Abdominal Surgery: Yes (RECTAL POLYP REMOVED) - Immunization History Immunization Up to Date: Yes - Psycho/Social/Smoking Cessation Hx Anxiety: No Suicidal Ideation: No Smoking Status: No Smoking History: Unknown if ever smoked Years of Tobacco Use: 0 Have you smoked in the past 12 months: No Number of Cigarettes Smoked Daily: 0 Hx Alcohol Use: No Drug/Substance Use Hx: No Substance Use Type: None Hx Substance Use Treatment: No <Abhilash Bhatia - Last Filed: 06/18/16 00:49> - Past Medical History Allergies/Adverse Reactions: Allergies Allergy/AdvReac Type Severity Reaction Status Date / Time No Known Allergies Allergy Verified 06/17/16 19:32 Home Medications: Ambulatory Orders Cholecalciferol (Vitamin D3) [Vitamin D3] 2,000 unit PO DAILY 02/12/16 Clonazepam 0.25 mg PO BID 02/12/16 Cyanocobalamin (Vitamin B-12) [Vitamin B-12] 1,000 mcg SL DAILY 02/12/16 Docusate Sodium 240 mg PO HS 02/12/16 Donepezil HCl 5 mg PO DAILY 02/12/16 Ergocalciferol (Vitamin D2) [Vitamin D2] 5,000 unit PO WEEKLY 02/12/16 Levothyroxine Sodium [Levo-T] 75 mcg PO DAILY 02/12/16 Nifedipine ER [Procardia XL -] 60 mg PO DAILY 02/12/16 Omeprazole 20 mg PO BID 02/12/16 Polyethylene Glycol 3350 [[id number]] 17 gm PO DAILY 02/12/16 Clonazepam [Klonopin -] 0.25 mg PO BID #60 tablet MDD 2 02/19/16 Donepezil HCl [Aricept -] 5 mg PO DAILY #0 tablet 02/19/16 Levothyroxine [Synthroid -] 75 mcg PO DAILY@0700 tablet 02/19/16 Nifedipine ER [Procardia XL -] 60 mg PO DAILY #0 tab.er.24 02/19/16 Thiothixene [Navane -] 2 mg PO HS capsule 02/19/16 Clonazepam [Klonopin -] 0.25 mg PO BID #60 tablet MDD 2 04/26/16 Docusate Sodium [Colace -] 200 mg PO HS capsule 04/26/16 Metoprolol Succinate [Toprol XL -] 25 mg PO DAILY #30 tab.sr.24h 04/26/16 Nifedipine ER [Procardia XL -] 60 mg PO DAILY tab.er.24 04/26/16 Pantoprazole Sodium [Protonix -] 20 mg PO BID tablet.ec 04/26/16 Thiothixene [Navane -] 2 mg PO HS capsule 04/26/16 Aspirin [ASA -] 325 mg PO DAILY 30 Days 04/29/16 Atorvastatin Ca [Lipitor] 10 mg PO HS #30 tablet 04/29/16 Levofloxacin [Levaquin -] 500 mg PO DAILY #7 tablet 06/18/16 Review of Systems - Review of Systems Able to Perform ROS?: Yes Comments:: 06/17/16 20:26 CONSTITUTIONAL: Absent: fever, no chills, no fatigue EYES: Absent: visual changes ENT: Absent: ear pain, no sore throat CARDIOVASCULAR: Absent: chest pain, no palpitations RESPIRATORY: Absent: cough, no SOB GI: Absent: abdominal pain, no nausea, no vomiting, no constipation, no diarrhea GENITOURINARY: +grape color urine Absent: dysuria, no frequency MUSCULOSKELETAL: Absent: back pain, no arthralgia, no myalgia SKIN: Absent: rash NEURO: Absent: headache <ColeenRuby - Last Filed: 06/18/16 00:40> *Physical Exam - Vital Signs Last Vital Signs Temp Pulse Resp BP Pulse Ox 98.6 F 51 L 18 145/92 97 06/17/16 19:32 06/17/16 19:32 06/17/16 19:32 06/17/16 19:32 06/17/16 19:32 - Physical Exam Comments: 06/17/16 20:26 GENERAL: Well-appearing, well-nourished. No apparent distress. HEENT: Normocephalic, atraumatic. PERRL, EOM intact. CARDIOVASCULAR: Normal S1, S2. Regular rate and rhythm. PULMONARY: Clear to auscultation bilaterally. ABDOMEN: Soft, non-distended, non-tender. EXTREMITIES: Normal ROM in all four extremities. No gross deformities. SKIN: Warm, dry. No rash NEUROLOGICAL: No focal neurological deficits. <ColeenRuby - Last Filed: 06/18/16 00:40> - Vital Signs Last Vital Signs Temp Pulse Resp BP Pulse Ox 98.6 F 51 L 18 145/92 97 06/17/16 19:32 06/17/16 19:32 06/17/16 19:32 06/17/16 19:32 06/17/16 19:32 <Abhilash Bhatia - Last Filed: 06/18/16 00:49> ED Treatment Course - LABORATORY CBC & Chemistry Diagram: 06/17/16 23:48 06/17/16 23:48 - ADDITIONAL ORDERS Additional order review: Laboratory Results 06/17/16 19:45 Urine Color Red Urine Appearance Cloudy Urine pH 6.0 Ur Specific [place] 1.008 Urine Protein 1+ H Urine Glucose (UA) Negative Urine Ketones Negative Urine Blood 3+ H Urine Nitrite Negative Urine Bilirubin Negative Urine Urobilinogen Negative Ur Leukocyte Esterase 2+ H Urine RBC 850 Urine WBC 537 Urine Bacteria Rare Urine Yeast Few <ColeenRuby - Last Filed: 06/18/16 00:40> - LABORATORY CBC & Chemistry Diagram: 06/17/16 23:48 06/17/16 23:48 <Abhilash Bhatia - Last Filed: 06/18/16 00:49> Medical Decision Making - Medical Decision Making 06/18/16 00:[address] Cristy Diaz (via answering service) at 24:40 and patient's case was discussed. <Ruby Horne - Last Filed: 06/18/16 00:40> - Medical Decision Making 06/18/16 00:47 Dr. Bhatia: The scribe's documentation has been prepared under my direction and personally reviewed by me in its entirery. I confirm that the note above accurately reflects all work, treatment, procedures, and medical decision making performed by me. Spoke to pt pcp, Dr. Cristy Groves. Pt to follow up with her. Rx Levaquin 500mg PO handed to him as he didn't know what pharmacy to transmit Rx to. <Abhilash Bhaita - Last Filed: 06/18/16 00:49> *DC/Admit/Observation/Transfer - Attestations Scribe Attestion: 06/17/16 20:26 Documentation prepared by Ruby Horne, acting as medical transcription for Abhilash Bhatia MD <Ruby Horne - Last Filed: 06/18/16 00:40> - Discharge Dispostion Admit: No <Abhilash Bhatia - Last Filed: 06/18/16 00:49> Diagnosis at time of Disposition: Hematuria UTI (urinary tract infection) Qualifiers: Urinary tract infection type: site unspecified Hematuria presence: without hematuria Qualified Code(s): N39.0 - Urinary tract infection, site not specified - Discharge Dispostion Disposition: HOME Condition at time of disposition: Stable - Prescriptions Prescriptions: Levofloxacin [Levaquin -] 500 mg PO DAILY #7 tablet - Referrals Referrals: Cristy Diaz MD [Primary Care Provider] - Stuart Maldonado MD [Staff Physician] - - Patient Instructions Printed Discharge Instructions: DI for Urinary Tract Infection (UTI), DI for Hematuria
[2016-06-17 20:14] LABS: URINE APPEARANCE CLOUDY; URINE BILIRUBIN NEGATIVE (NEGATIVE); URINE COLOR RED; URINE GLUCOSE (UA) NEGATIVE (NEGATIVE); URINE KETONE NEGATIVE (NEGATIVE); URINE NITRITE NEGATIVE (NEGATIVE); URINE UROBILINOGEN NEGATIVE E.U./dl (0.2-1.0)
[2016-06-17 20:19] LABS: URINE BLOOD 3+ (NEGATIVE); URINE LEUK ESTERASE 2+ (NEGATIVE); URINE PROTEIN 1+ (NEGATIVE)
[2016-06-17 20:21] LABS: URINE BACTERIA RARE /hpf (NONE SEEN); URINE RBC 850 /hpf (0-3); URINE WBC 537 /hpf (3-5); YEAST FEW
[2016-06-17] MEDS ORDERED: LEVOFLOXACIN 500 MG TABLET (FP) PO ONE (22:53)
[2016-06-17] MEDS ORDERED: LEVOFLOXACIN 500 MG TABLET (FP) ONE (23:58)
[2016-06-18 00:07] LABS: BASOPHIL 0.7 % (0-2.0); EOSINOPHIL 5.2 % (0-4.5); MCH 31.6 pg (25.7-33.7); MCHC 33.8 g/dl (32.0-35.9); MEAN CELL VOLUME 93.6 fl (80-96); MEAN PLT VOLUME 7.4 fl (7.5-11.1); NEUTROPHILS 42.8 % (42.8-82.8); PLATELET COUNT 144 K/MM3 (134-434); RDW 12.9 % (11.9-15.9); WHITE BLOOD COUNT 5.1 K/mm3 (4.0-10.0)
[2016-06-18 00:33] LABS: CALCIUM 8.9 mg/dL (8.5-10.1)
== END 2016-06-18 01:13 | disposition home or self-care (01) ==
LOC: JER 19:28
DX: N39.0 Urinary tract infection, site not specified (principal); R31.9 Hematuria, unspecified; I10 Essential (primary) hypertension; E78.00 Pure hypercholesterolemia, unspecified; E11.9 Type 2 diabetes mellitus without complications; F20.0 Paranoid schizophrenia
CPT/HCPCS: 36415; 80048; 81003; 81015; 85025; 87086; 87186; 99281-25

== ENCOUNTER 2018-07-21 12:12 | Inpatient (IN) | payer OTHER ==
[2018-07-21] MEDS ORDERED: ONDANSETRON 4 MG/2 ML VIAL IVPUSH ONE (12:30)
[2018-07-21] MEDS ORDERED: ONDANSETRON 4 MG/2 ML VIAL ONE (12:37)
--- NOTE | 2018-07-21 12:38 | EKG ---
Test Reason : Blood Pressure : / mmHG Vent. Rate : 074 BPM Atrial Rate : 074 BPM P-R Int : 150 ms QRS Dur : 094 ms QT Int : 378 ms P-R-T Axes : 054 061 032 degrees QTc Int : 419 ms NORMAL SINUS RHYTHM NORMAL ECG Confirmed by MD ERNI, OTILIO ([id number]) on 07/21/2018 12:38:08 PM Referred By: SHANDRA BARRERA Confirmed By:OTILIO KHAN MD
--- NOTE | 2018-07-21 12:42 | PDOC ---
Attending Attestation - Resident Resident Name: Tahir Delatorre - ED Attending Attestation I have performed the following: I have examined & evaluated the patient, The case was reviewed & discussed with the resident, I agree w/resident's findings & plan, Exceptions are as noted - HPI HPI: 07/21/18 12:40 67yo M hx HTN, HL, DM, schizoaffective d/o, SBO 2015 (conservatively managed) presents to the ED from nursing home with his girlfriend complaining 2 episodes of vomiting, once last night and once this morning. 1 episode of diarrhea as well this morning. Pt reports vomit was yellow and non bloody. Continues to feel nauseous now. Also reports abd distention. DEnies fevers, chills, cp, sob, dizziness, weakness/numbness, LE edema, headache, rashes. No sick contacts, no recent travel. - Physicial Exam PE: 07/21/18 14:54 GENERAL: Awake, alert, and fully oriented, in no acute distress but appears uncomfortable. Pale. EYES: PERRLA, EOMI, sclera anicteric, conjunctiva clear ENT: Oropharynx clear without exudates. Moist mucosa LUNGS: Breath sounds equal, clear to auscultation bilaterally. No wheezes, and no crackles HEART: Regular rate and rhythm, normal S1 and S2, no murmurs, rubs or gallops ABDOMEN: +distention, tympanitic to percussion. No ttp. No rebound or guarding. EXTREMITIES: Normal range of motion, no edema. No cords, erythema, or tenderness NEUROLOGICAL: Normal speech, cranial nerves intact, equal strength and sensation b/l SKIN: Warm, Dry, normal turgor, no rashes or lesions noted. - Medical Decision Making 07/21/18 14:59 67yo M presents to the ED with vomiting and diarrhea. Vitals wnl. DDx includes SBO vs gastroenteritis vs gastritis Labs, AXR obtained - AXR on my read with air fluid levels CTAP pending Labs otherwise wnl EKG non ischemic Will treat with fluids, antiemetics, reassess, and dispo accordingly 07/21/18 15:[address] Diaz, pt accepted for admission Requests we consult Dr. Stoddard who Dr. Delatorre has called Case discussed in detail with admitting physician including history, physical exam and ancillary studies. Admitting physician has assumed care for the patient, will follow all pending diagnostics and will complete the evaluation and treatment. 07/21/18 16:[address] Stoddard, he requests we consult the surgeon software configuration engineer Called Dr. Diaz back to discuss, left a message Heart Score/ECG Review #1 07/21/18 14:58 Twelve-lead EKG was performed and reviewed by me. Normal sinus rhythm, rate 74. Normal axis and intervals. No ST elevations or T-wave inversions.
[2018-07-21 13:17] LABS: BASO % 0.1 % (0-2.0); HEMATOCRIT 41.9 % (35.4-49); HEMOGLOBIN 13.6 GM/dl (11.7-16.9); LYMPH % 12.1 % (8-40); MCH 31.2 pg (25.7-33.7); MCHC 32.4 g/dl (32.0-35.9); MEAN CELL VOLUME 96.5 fl (80-96); MEAN PLT VOLUME 7.9 fl (7.5-11.1); MONO % 9.5 % (3.8-10.2); NEUT % 77.3 % (42.8-82.8); PLATELET COUNT 192 K/MM3 (134-434); RBC 4.34 M/mm3 (4.00-5.60); RDW 13.1 % (11.9-15.9)
--- NOTE | 2018-07-21 13:24 | PDOC ---
History of Present Illness - General Chief Complaint: Vomiting/Diarrhea Stated Complaint: VOMITED TWICE AND LOOSE STOOL Time Seen by Provider: 07/21/18 12:25 History Source: Patient Exam Limitations: No Limitations - History of Present Illness Initial Comments: 07/21/18 13:17 67 yo male pmh Schizophrenia, HTN, HLD, NIDDM and SBO 2014 presents from [facility] day of NB/NB vomiting and diarrhea. Pt states he had 1 episode of vomiting last night and 2 this am with 1 episode of loose stools this am as well. Denies blood in the vomit or stool, denies abdominal pain, pain with defecation, abdominal distension, abdominal surgeries, F/C, back pain, Cp, palpitations, SOB or changes in urinary habits. Past History - Past Medical History Allergies/Adverse Reactions: Allergies Allergy/AdvReac Type Severity Reaction Status Date / Time strawberry Allergy Intermediate Rash Verified 07/21/18 12:14 Home Medications: Ambulatory Orders Aspirin [Aspirin EC] 325 mg PO DAILY 07/21/18 Cholecalciferol (Vitamin D3) [Vitamin D] 2,000 unit PO DAILY 07/21/18 Clonazepam 0.5 mg PO BID 07/21/18 Cyanocobalamin (Vitamin B-12) [Vitamin B-12] 1,000 mcg SL DAILY 07/21/18 Donepezil HCl [Aricept] 5 mg PO DAILY 07/21/18 Levothyroxine [Synthroid -] 50 mcg PO DAILY 07/21/18 Metoprolol Succinate [Toprol Xl] 25 mg PO DAILY 07/21/18 Nifedipine ER [Procardia Xl -] 60 mg PO DAILY 07/21/18 Olanzapine [Zyprexa] 5 mg PO HS 07/21/18 Omeprazole Magnesium [Prilosec Otc] 20 mg PO DAILY 07/21/18 COPD: No GI Disorders: Yes (SBO) HTN: Yes Psychiatric Problems: Yes (DEMENTIA, DEPRESSION) Thyroid Disease: Yes - Surgical History Abdominal Surgery: Yes (RECTAL POLYP REMOVED) - Immunization History Immunization Up to Date: Yes - Suicide/Smoking/Psychosocial Hx Smoking Status: No Smoking History: Never smoked Years of Tobacco Use: 0 Have you smoked in the past 12 months: No Number of Cigarettes Smoked Daily: 0 Information on smoking cessation initiated: No Hx Alcohol Use: No Drug/Substance Use Hx: No Substance Use Type: None Hx Substance Use Treatment: No *Physical Exam - Vital Signs Last Vital Signs Temp Pulse Resp BP Pulse Ox 98.5 F 82 16 135/86 96 07/21/18 12:14 07/21/18 12:14 07/21/18 12:14 07/21/18 12:14 07/21/18 12:14 ED Treatment Course - LABORATORY CBC & Chemistry Diagram: 07/21/18 12:59 07/21/18 12:59 - RADIOLOGY Radiology Studies Ordered: Category Date Time Status ABDOMEN FLAT & UPRIGHT [RAD] Stat Radiology 07/21/18 12:58 Ordered CHEST PA & LAT [RAD] Stat Radiology 07/21/18 13:15 Ordered - Medications Given in the ED: ED Medications Discontinued Medications Generic Name Dose Route Start Last Admin Trade Name Freq PRN Reason Stop Dose Admin Ondansetron HCl 4 mg 07/21/18 12:30 07/21/18 13:02 Zofran Injection IVPUSH 07/21/18 12:31 4 mg ONCE ONE Administration Medical Decision Making - Medical Decision Making 07/21/18 19:[address] Diaz agrees to admit for partial small bowel obstruction and requests Gen Surg consult with Dr. Stoddard who is not doorperson. Dr. Diaz is aware and following. *DC/Admit/Observation/Transfer Diagnosis at time of Disposition: Partial small bowel obstruction - Discharge Dispostion Condition at time of disposition: Stable Decision to Admit order: Yes - Referrals - Patient Instructions - Post Discharge Activity
[2018-07-21 13:30] LABS: ALBUMIN 4.2 g/dl (3.4-5.0); ALK PHOS 77 U/L (45-117); ANION GAP 7 MMOL/L (8-16); BLOOD UREA NITROGEN 25 mg/dl (7-18); CHLORIDE 99 mmol/L (98-107); CO2 29 mmol/L (21-32); CREATININE 0.9 mg/dl (0.55-1.3); GLUCOSE,RANDOM 116 mg/dl (74-106); POTASSIUM 4.5 mmol/L (3.5-5.1); SGOT/AST 22 U/L (15-37); SGPT/ALT 10 U/L (13-61); SODIUM 135 mmol/L (136-145)
[2018-07-21] MEDS ORDERED: SODIUM CHLORIDE 1,000 ML IV STA (13:34)
[2018-07-21] MEDS ORDERED: METOCLOPRAMIDE HCL INJECTION 10 MG/2 ML VIAL IVPB ONE (14:24)
[2018-07-21] MEDS ORDERED: METOCLOPRAMIDE HCL INJECTION 10 MG/2 ML VIAL ONE (14:30)
[2018-07-21 14:52] LABS: LIPASE 84 U/L (73-393)
[2018-07-21 18:33] VITALS: BMI 26.1
--- NOTE | 2018-07-21 20:18 | HP ---
Admitting History and Physical - Admission Chief Complaint: vomiting History of Present Illness: 67 yo male with PMH of schizoaffective disorder, HTN and glucose intolerance presented to ER for vomiting, and diarrhea. A CT scan of the abdomen documented SBO. He denies any fever or abdominal pain. He had a similar episode of SBO in 2014 which resolved spontaneously. AT that time he underwent colonoscopy which was suboptimal due to poor prep. resulst were labeled as negative. The patient's surgical history is positive for inguinal hernia repair in 1976 ( right side) and 1996 (left side). He has a baseline of constipation which was managed well until now with Colace. 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 schizo affective disorder) Cardiovascular: Yes: HTN, Hyperlipdemia, Other (orthostatic hypotension) Gastrointestinal: Yes: Constipation, Other (SBO, left uiguinal hernia repair) Heme/Onc: Yes: B12 Deficiency Psych: Yes: Schizophrenia Endocrine: Yes: Diabetes Mellitus Dermatology: Yes: Other (Vitiligo) - Past Surgical History Past Surgical History: Yes: Colonoscopy, Hernia Repair - Smoking History Smoking history: Never smoked Have you smoked in the past 12 months: No Aproximately how many cigarettes per day: 0 - Alcohol/Substance Use Hx Alcohol Use: No Home Medications - Allergies Allergies/Adverse Reactions: Allergies Allergy/AdvReac Type Severity Reaction Status Date / Time strawberry Allergy Intermediate Rash Verified 07/21/18 12:14 - Home Medications Home Medications: Ambulatory Orders Aspirin [Aspirin EC] 325 mg PO DAILY 07/21/18 Cholecalciferol (Vitamin D3) [Vitamin D] 2,000 unit PO DAILY 07/21/18 Clonazepam 0.5 mg PO BID 07/21/18 Cyanocobalamin (Vitamin B-12) [Vitamin B-12] 1,000 mcg SL DAILY 07/21/18 Donepezil HCl [Aricept] 5 mg PO DAILY 07/21/18 Levothyroxine [Synthroid -] 50 mcg PO DAILY 07/21/18 Metoprolol Succinate [Toprol Xl] 25 mg PO DAILY 07/21/18 Nifedipine ER [Procardia Xl -] 60 mg PO DAILY 07/21/18 Olanzapine [Zyprexa] 5 mg PO HS 07/21/18 Omeprazole Magnesium [Prilosec Otc] 20 mg PO DAILY 07/21/18 Review of Systems - Review of Systems Constitutional: reports: No Symptoms Eyes: reports: No Symptoms HENT: reports: No Symptoms Neck: reports: No Symptoms Cardiovascular: reports: No Symptoms Respiratory: reports: No Symptoms Gastrointestinal: reports: Bloating, Diarrhea, Vomiting. denies: Abdominal Pain , Vomiting Blood Genitourinary: reports: No Symptoms Breasts: reports: No Symptoms Reported Musculoskeletal: reports: No Symptoms. denies: Muscle Weakness Integumentary: denies: No Symptoms Hematology/Lymphatic: reports: No Symptoms Psychiatric: denies: Anxiety, Depression, Hallucinations, Panic, Paranoia Physical Examination Vital Signs: Vital Signs Temperature 99.3 F 07/21/18 19:30 Pulse Rate 88 07/21/18 19:30 Respiratory Rate 16 07/21/18 19:30 Blood Pressure 111/75 07/21/18 19:30 O2 Sat by Pulse Oximetry (%) 100 07/21/18 19:30 Constitutional: Yes: No Distress, Calm Eyes: Yes: Conjunctiva Clear, EOM Intact HENT: Yes: Atraumatic, Normocephalic Neck: Yes: Supple, Trachea Midline Cardiovascular: Yes: Regular Rate and Rhythm, S1, S2 Respiratory: Yes: Regular, CTA Bilaterally. No: Tachypnea, Wheezes Gastrointestinal: Yes: Soft, Abdomen, Obese, Hypoactive Bowel Sounds, Tenderness (in the periumbilical area), Vomiting. No: Normal Bowel Sounds, Hepatomegaly, Tenderness, Rebound ...Rectal Exam: Yes: Deferred Extremities: No: Calf Tenderness Edema: No Peripheral Pulses WNL: Yes Neurological: Yes: Alert, Oriented ...Motor Strength: WNL Psychiatric: Yes: Alert, Oriented Labs: CBC, BMP 07/21/18 12:59 07/21/18 12:59 Imaging - Results X-ray: Other (AXR air fluid levels, possible hiata hernia) EKG: Other (NSR, 74 b/min, GARRETT, normal P and CT interval, QRS axi at 60, non specific st t) Problem List - Problems (1) Partial small bowel obstruction Assessment/Plan: NPO NG tube placement connected to intermittent suction IV D5 1?2 NS at 75 cc per hour labs in am Surgical consult Code(s): K56.600 - PARTIAL INTESTINAL OBSTRUCTION, UNSPECIFIED TO CAUSE (2) HTN (hypertension) Assessment/Plan: Nifedipine and Toprol , medications on hold for now Code(s): I10 - ESSENTIAL (PRIMARY) HYPERTENSION Qualifiers: Hypertension type: essential hypertension Qualified Code(s): I10 - Essential (primary) hypertension (3) Schizoaffective disorder Assessment/Plan: Zyprexa Code(s): F25.9 - SCHIZOAFFECTIVE DISORDER, UNSPECIFIED Qualifiers: Schizoaffective disorder type: unspecified Qualified Code(s): F25.9 - Schizoaffective disorder, unspecified
[2018-07-21] MEDS: D5-1/2NS+20 MEQ KCL - 20 MEQ/1,000 ML INFUS.BAG IV SCH (22:00)
[2018-07-22 08:19] LABS: BASO % 0.1 % (0-2.0); EOS % 1.7 % (0-4.5); HEMATOCRIT 39.3 % (35.4-49); HEMOGLOBIN 12.6 GM/dl (11.7-16.9); LYMPH % 16.1 % (8-40); MCH 31.2 pg (25.7-33.7); MCHC 32.1 g/dl (32.0-35.9); MEAN CELL VOLUME 97.2 fl (80-96); MEAN PLT VOLUME 8.3 fl (7.5-11.1); MONO % 10.1 % (3.8-10.2); PLATELET COUNT 182 K/MM3 (134-434); RBC 4.04 M/mm3 (4.00-5.60); RDW 13.1 % (11.9-15.9); WHITE BLOOD COUNT 9.3 K/mm3 (4.0-10.8)
[2018-07-22 08:29] LABS: ALBUMIN 3.8 g/dl (3.4-5.0); ALK PHOS 65 U/L (45-117); ANION GAP 8 MMOL/L (8-16); BILIRUBIN,TOTAL 0.9 mg/dl (0.2-1); BLOOD UREA NITROGEN 22 mg/dl (7-18); CALCIUM 8.4 mg/dl (8.5-10); CHLORIDE 102 mmol/L (98-107); CO2 26 mmol/L (21-32); CREATININE 1.1 mg/dl (0.55-1.3); GLUCOSE,RANDOM 110 mg/dl (74-106); POTASSIUM 3.8 mmol/L (3.5-5.1); SGOT/AST 20 U/L (15-37); SGPT/ALT 10 U/L (13-61); SODIUM 136 mmol/L (136-145); TOT PROT 7.3 g/dl (6.4-8.2)
--- NOTE | 2018-07-22 10:33 | PN ---
Progress Note, Physician Chief Complaint: patient feels better, had 4 large bowel movements this morning, there is no pain and no fever History of Present Illness: 67 yo male with PMH of Schizoaffective disorder was admitted with symptoms of vomiting. CT scan of the abdomen demonstrated SBO. Patient had NG tube inserted last night and connected to low intermittent suction. 200 cc gastric contents were obtained in 9 hours. Towards the afternoon the patient developed sharp mid abdominal pain which went away spontaneously. Since morning he had in total 4 bowel movements. - Current Medication List Current Medications: Active Medications Potassium Chloride/Dextrose/Sod Cl (D5-1/2ns+20 Meq Kcl -) 20 meq in 1,000 mls @ 75 mls/hr IV ASDIR MARIA TERESA Last Admin: 07/21/18 22:00 Dose: 75 mls/hr - Objective Vital Signs: Vital Signs Temperature 98.4 F 07/22/18 06:00 Pulse Rate 80 07/22/18 06:00 Respiratory Rate 19 07/22/18 06:00 Blood Pressure 115/56 L 07/22/18 06:00 O2 Sat by Pulse Oximetry (%) 95 07/22/18 06:24 Constitutional: Yes: No Distress, Calm Eyes: Yes: Conjunctiva Clear, EOM Intact HENT: Yes: Atraumatic, Normocephalic Neck: Yes: Supple, Trachea Midline Cardiovascular: Yes: Regular Rate and Rhythm, S1, S2 Respiratory: Yes: Regular, CTA Bilaterally Gastrointestinal: Yes: Soft, Abdomen, Obese, Distention, Other (bowel sounds present in all quadrants, no tenderness in neal rasheed umbilical area). No: Hepatomegaly, Tenderness, Tenderness, Epigastrium, Tenderness, Rebound Musculoskeletal: Yes: WNL Extremities: Yes: WNL. No: Calf Tenderness Peripheral Pulses WNL: Yes Neurological: Yes: Alert, Oriented Psychiatric: Yes: Alert, Oriented Labs: CBC, BMP 07/22/18 07:30 07/22/18 07:30 - ....Imaging X-ray: Other (AXR air fluid leves perisisting, no perforation) Problem List - Problems (1) Partial small bowel obstruction Assessment/Plan: NPO NG tube placement connected to intermittent suction IV D51/2 NS at 75 cc per hour Protonix 40 mg iv daily labs in am Surgical consult appreciated Code(s): K56.600 - PARTIAL INTESTINAL OBSTRUCTION, UNSPECIFIED TO CAUSE (2) HTN (hypertension) Assessment/Plan: Nifedipine and Toprol , medications on hold for now check blood pressure an dconsider medications if blood pressure rises Code(s): I10 - ESSENTIAL (PRIMARY) HYPERTENSION Qualifiers: Hypertension type: essential hypertension Qualified Code(s): I10 - Essential (primary) hypertension (3) Schizoaffective disorder Assessment/Plan: Zyprexa 5 mg q hs , hold ng tube feeding 1 hour after administration Code(s): F25.9 - SCHIZOAFFECTIVE DISORDER, UNSPECIFIED Qualifiers: Schizoaffective disorder type: unspecified Qualified Code(s): F25.9 - Schizoaffective disorder, unspecified
--- NOTE | 2018-07-22 12:09 | CONS ---
DATE OF CONSULTATION: 07/22/2018 REFERRING PHYSICIAN: Cristy Diaz MD REASON FOR REFERRAL: Partial small bowel obstruction. BRIEF HISTORY: This is a 67-year-old gentleman who is a resident of a intermediate. He was brought here because of diarrhea and vomiting. He underwent a CT scan that had findings consistent with a partial bowel obstruction, no obvious point of transition. Patient was admitted, managed medically with NG tube decompression and bowel rest. Patients history is obtained via the chart mostly since he is a poor historian, but he able to answer basic questions. He states he does not have abdominal pain at this time. According to the nurse, he had 2 rather substantial bowel movements today, as well. His NG tube drained approximately 400 mL overnight. PAST MEDICAL HISTORY: Significant for a schizoaffective disorder, hyperglucosemia secondary to glucose intolerance. He has hyperlipidemia, hypertension. PAST SURGICAL HISTORY: The patient has had bilateral inguinal hernia repairs done in an open fashion. MEDICATIONS: Aspirin, vitamins, clonazepam, Aricept, Synthroid, metoprolol, nifedipine, Zyprexa, and Prilosec. SOCIAL HISTORY: Patient does not smoke, nor drink. He is a resident of a intermediate. ALLERGIES: Refer to chart. PHYSICAL EXAMINATION: Abdomen: Soft, nontender, nondistended. There is no peritoneal findings whatsoever. The NG tube has gastric content. IMPRESSION/PLAN: Partial small bowel obstruction, enteritis: This is a 67-year-old gentleman admitted with vomiting and diarrhea. He is unable to give true history. CT findings are suggestive of partial bowel obstruction. Given the fact that he has had diarrhea and vomiting and non-specific CT findings, this could be related to an enteritis of some sort. In any event, clearly, the patient is improving without surgical intervention, he has no peritoneal findings and does not have any evidence of an acute abdomen or compromised bowel at this point. He clearly has no obvious incarcerated hernias in the groin or in the midline of the abdomen. I would recommend no acute surgical intervention at this point. Patient should be managed medically with NG tube decompression for another day or so, and then placed on p.o. liquids and can be subsequently discharged at home on full liquid diet for several days and then advancing as tolerated as an outpatient in the intermediate. I will see this patient now on a p.r.n. basis. Thank you for allowing me to participate in the care of your patient. Given the fact that he is being medically managed, you should also consider obtaining a GI consult. BEE AVERY M.D. [id number] cc: Cristy Diaz MD
[2018-07-22] MEDS: PANTOPRAZOLE SODIUM 40 MG VIAL IVPUSH SCH (16:37)
[2018-07-22] MEDS: D5-1/2NS+20 MEQ KCL - 20 MEQ/1,000 ML INFUS.BAG IV SCH (21:13)
[2018-07-23] MEDS: OLANZapine 5 MG TABLET PO SCH ×2 (01:05→21:17)
[2018-07-23 07:53] LABS: ALBUMIN 3.4 g/dl (3.4-5.0); ALK PHOS 59 U/L (45-117); ANION GAP 4 MMOL/L (8-16); BILIRUBIN,TOTAL 0.6 mg/dl (0.2-1); BLOOD UREA NITROGEN 18 mg/dl (7-18); CALCIUM 8.3 mg/dl (8.5-10); CHLORIDE 107 mmol/L (98-107); CO2 25 mmol/L (21-32); CREATININE 0.9 mg/dl (0.55-1.3); GLUCOSE,RANDOM 107 mg/dl (74-106); SGOT/AST 13 U/L (15-37); SGPT/ALT 8 U/L (13-61); SODIUM 136 mmol/L (136-145); TOT PROT 6.8 g/dl (6.4-8.2)
[2018-07-23 08:16] LABS: BASO % 0.1 % (0-2.0); EOS % 2.2 % (0-4.5); HEMATOCRIT 34.8 % (35.4-49); HEMOGLOBIN 11.7 GM/dl (11.7-16.9); MCH 32.4 pg (25.7-33.7); MCHC 33.7 g/dl (32.0-35.9); MEAN CELL VOLUME 96.2 fl (80-96); MEAN PLT VOLUME 7.7 fl (7.5-11.1); MONO % 11.3 % (3.8-10.2); NEUT % 71.4 % (42.8-82.8); PLATELET COUNT 149 K/MM3 (134-434); RBC 3.62 M/mm3 (4.00-5.60); RDW 12.5 % (11.9-15.9); WHITE BLOOD COUNT 7.2 K/mm3 (4.0-10.8)
[2018-07-23] MEDS: PANTOPRAZOLE SODIUM 40 MG VIAL IVPUSH SCH (09:58)
[2018-07-23] MEDS ORDERED: NAPHAZOLINE/PHENIRAMINE OPHTHALMIC 15 ML BOTTLE OU PRN ×2 (10:10→10:11)
[2018-07-23] MEDS ORDERED: D5-1/2NS+20 MEQ KCL - 20 MEQ/1,000 ML INFUS.BAG IV SCH (16:11)
[2018-07-23] MEDS ORDERED: clonazePAM 0.5 MG TABLET PO PRN (16:15)
--- NOTE | 2018-07-23 16:15 | PN ---
Progress Note, Physician Chief Complaint: patient feels better, had 1 large bowel movements this morning, there is no pain and no fever, the NG tube was removed History of Present Illness: 67 yo male with PMH of Schizoaffective disorder was admitted with symptoms of vomiting. CT scan of the abdomen demonstrated SBO. Patient had NG tube removed this morning. Since morning he had in total 1 bowel movement. - Current Medication List Current Medications: Active Medications Potassium Chloride/Dextrose/Sod Cl (D5-1/2ns+20 Meq Kcl -) 20 meq in 1,000 mls @ 50 mls/hr IV ASDIR MARIA TERESA Naphazoline HCl/Pheniramine Maleate (Visine-A -) 1 drop OU Q4H PRN PRN Reason: ALLERGY SYMPTOMS Naphazoline HCl/Pheniramine Maleate (Visine-A -) 2 drop OU Q4H PRN PRN Reason: FOR ALLERGY SYMPTOMS Last Admin: 07/23/18 10:00 Dose: 2 drop Olanzapine (Zyprexa -) 5 mg PO HS [facility] Last Admin: 07/23/18 01:05 Dose: 5 mg Pantoprazole Sodium (Protonix Iv) 40 mg IVPUSH DAILY [facility] Last Admin: 07/23/18 09:58 Dose: 40 mg - Objective Vital Signs: Vital Signs Temperature 97.7 F 07/23/18 14:00 Pulse Rate 68 07/23/18 14:00 Respiratory Rate 18 07/23/18 14:00 Blood Pressure 147/76 07/23/18 14:00 O2 Sat by Pulse Oximetry (%) 95 07/23/18 14:00 Constitutional: Yes: No Distress, Calm Eyes: Yes: Conjunctiva Clear, EOM Intact HENT: Yes: Atraumatic, Normocephalic Neck: Yes: Supple, Trachea Midline Cardiovascular: Yes: Regular Rate and Rhythm, S1, S2 Gastrointestinal: Yes: Normal Bowel Sounds, Soft, Abdomen, Obese. No: Hepatomegaly, Splenomegaly Extremities: No: Calf Tenderness Edema: No Peripheral Pulses WNL: Yes Neurological: Yes: Alert, Oriented Psychiatric: Yes: Alert, Oriented Labs: CBC, BMP 07/23/18 07:00 07/23/18 07:00 Problem List - Problems (1) Partial small bowel obstruction Assessment/Plan: start liquid diet , decrease IV fluids to 50 cc /hr Protonix 40 mg iv will switch to po once tolerating Code(s): K56.600 - PARTIAL INTESTINAL OBSTRUCTION, UNSPECIFIED TO CAUSE (2) HTN (hypertension) Assessment/Plan: start Toprol 25 mg daily Code(s): I10 - ESSENTIAL (PRIMARY) HYPERTENSION Qualifiers: Hypertension type: essential hypertension Qualified Code(s): I10 - Essential (primary) hypertension (3) Schizoaffective disorder Assessment/Plan: Zyprexa add Clonopine 0.5 mg po bid Code(s): F25.9 - SCHIZOAFFECTIVE DISORDER, UNSPECIFIED Qualifiers: Schizoaffective disorder type: unspecified Qualified Code(s): F25.9 - Schizoaffective disorder, unspecified
[2018-07-23] MEDS: metoPROLOL SUCCINATE 25 MG TAB.SR.24H (FP) PO SCH (16:57)
[2018-07-23] MEDS ORDERED: PT OWN MED DRAWER 7, Y5N ONE (21:13)
[2018-07-24] MEDS: metoPROLOL SUCCINATE 25 MG TAB.SR.24H (FP) PO SCH (09:28)
[2018-07-24] MEDS: PANTOPRAZOLE SODIUM 40 MG VIAL IVPUSH SCH (09:29)
[2018-07-24 14:48] VITALS: BP 137/83; PULSE 54; TEMP 97.6
--- NOTE | 2018-07-24 17:48 | DS ---
Physical Examination Vital Signs: Vital Signs Temperature 97.6 F 07/24/18 14:00 Pulse Rate 54 L 07/24/18 14:00 Respiratory Rate 18 07/24/18 14:00 Blood Pressure 137/83 07/24/18 14:00 O2 Sat by Pulse Oximetry (%) 96 07/24/18 14:00 Constitutional: Yes: No Distress, Calm Eyes: Yes: Conjunctiva Clear, EOM Intact HENT: Yes: Atraumatic, Normocephalic Neck: Yes: Supple, Trachea Midline Cardiovascular: Yes: Regular Rate and Rhythm Respiratory: Yes: Regular, CTA Bilaterally Gastrointestinal: Yes: Normal Bowel Sounds, Soft, Abdomen, Obese. No: Hepatomegaly, Melena, Palpable Mass, Splenomegaly, Tenderness, Tenderness, Epigastrium, Tenderness, Rebound, Vomiting ...Rectal Exam: Yes: Deferred Edema: No Neurological: Yes: Alert, Oriented Psychiatric: Yes: Alert, Oriented Labs: CBC, BMP 07/23/18 07:00 07/23/18 07:00 Discharge Summary Reason For Visit: PARTIAL SMALL BOWEL OBSTRUCTION Current Active Problems Partial small bowel obstruction (Acute) Procedures: Principal: iv fluids intermittent NG tube suctioning Hospital Course: Patient admitted for partial SBO was placed NPO and on IV fluids. The patient is feeling well and was able to tolerate oral intake well. HE will follow up with me on an outpatient bases. Medication was adjusted an Nifedipine was stopped for now Condition: Good - Instructions Disposition: HOME - Home Medications Comprehensive Discharge Medication List: Ambulatory Orders Aspirin [Aspirin EC] 325 mg PO DAILY 07/21/18 Cholecalciferol (Vitamin D3) [Vitamin D3] 2,000 unit PO DAILY 07/21/18 Clonazepam 0.5 mg PO BID 07/21/18 Cyanocobalamin (Vitamin B-12) [Vitamin B-12] 1,000 mcg SL DAILY 07/21/18 Donepezil HCl [Aricept] 5 mg PO DAILY 07/21/18 Levothyroxine [Synthroid -] 50 mcg PO DAILY 07/21/18 Metoprolol Succinate [Toprol Xl] 25 mg PO DAILY 07/21/18 Olanzapine [Zyprexa] 5 mg PO HS 07/21/18 Omeprazole Magnesium [Prilosec Otc] 20 mg PO DAILY 07/21/18 Metoprolol Succinate [Toprol XL -] 25 mg PO DAILY tab.sr.24h 07/24/18 Olanzapine [Zyprexa -] 5 mg PO HS tablet 07/24/18 clonazePAM [Klonopin -] 0.5 mg PO BID PRN #60 tablet MDD 2 07/24/18
== END 2018-07-24 18:04 | disposition home or self-care (01) | DRG 390 ==
LOC: FER 12:12 → FM/S 15:36 → OBSVTOIN 15:36 → FM/S 17:43
PROVIDERS: ADMIT Internal Medicine; ATTEND Internal Medicine
DX: K56.600 Partial intestinal obstruction, unspecified as to cause (principal); I10 Essential (primary) hypertension; F25.9 Schizoaffective disorder, unspecified; E78.5 Hyperlipidemia, unspecified; R19.7 Diarrhea, unspecified; F03.90 Unspecified dementia, unspecified severity, without behavioral disturbance, psychotic disturbance, mood disturbance, and anxiety; F32.9 Major depressive disorder, single episode, unspecified; D51.9 Vitamin B12 deficiency anemia, unspecified; E11.9 Type 2 diabetes mellitus without complications
CPT/HCPCS: 36415; 71046-TC-FY; 74018-TC-FY; 74019-TC-FY; 74177-TC; 80053; 81003; 81015; 82550; 82553; 83690; 84484; 85025; 93005; 99282-25; J7030

== ENCOUNTER 2018-10-04 18:17 | Inpatient (IN) | payer OTHER ==
--- NOTE | 2018-10-04 18:24 | PDOC ---
History of Present Illness - General Chief Complaint: Pain Stated Complaint: ABDOMINAL BLOATING Time Seen by Provider: 10/04/18 18:23 History Source: Patient Exam Limitations: No Limitations - History of Present Illness Initial Comments: 10/04/18 18:53 Aubrey Rudd is a 67yM with PMHx of HTN, HLD, schizoaffective disorder, and SBO ( 2014, 2018) presenting with abdominal distension and pain. Distension and pain started 3 days ago, epigastric region, pain is constant, progressively worsening. Denies fever, nausea/vomiting, chest pain, SOB, urinary symptoms. Normal watery bowel movements daily. No changes in meds. Had bilateral hernia surgical repair in the past. Last meal 4p today Past History - Past Medical History Allergies/Adverse Reactions: Allergies Allergy/AdvReac Type Severity Reaction Status Date / Time strawberry Allergy Intermediate Rash Verified 10/04/18 18:38 Home Medications: Ambulatory Orders Aspirin 81 mg PO DAILY 10/04/18 Cholecalciferol (Vitamin D3) [Vitamin D] 2,000 unit PO DAILY 10/04/18 Clonazepam 0.5 mg PO DAILY 10/04/18 Cyanocobalamin (Vitamin B-12) [Vitamin B-12] 1 tab SL DAILY 10/04/18 Donepezil HCl [Aricept] 5 mg PO DAILY 10/04/18 Levothyroxine [Synthroid -] 50 mcg PO DAILY 10/04/18 Metoprolol Succinate [Toprol Xl] 25 mg PO DAILY 10/04/18 Olanzapine [Zyprexa] 1 tab PO DAILY 10/04/18 Olanzapine [Zyprexa] 5 mg PO HS 10/04/18 Omeprazole Magnesium [Prilosec Otc] 20 mg PO DAILY 10/04/18 Cancer: No Cardiac Disorders: No COPD: No CHF: No GI Disorders: Yes (SBO) HTN: Yes Psychiatric Problems: Yes (DEMENTIA, DEPRESSION) Thyroid Disease: Yes - Surgical History Abdominal Surgery: Yes (RECTAL POLYP REMOVED, BILATERAL HERNIA REPAIR) - Immunization History Immunization Up to Date: Yes - Suicide/Smoking/Psychosocial Hx Smoking Status: No Smoking History: Never smoked Years of Tobacco Use: 0 Have you smoked in the past 12 months: No Number of Cigarettes Smoked Daily: 0 Hx Alcohol Use: No Drug/Substance Use Hx: No Substance Use Type: None Hx Substance Use Treatment: No Review of Systems - Review of Systems Constitutional: No: Chills, Fever, Night Sweats, Weakness HEENTM: No: Eye Pain, Recent change in vision, Nose Pain, Throat Pain Respiratory: No: Cough, Shortness of Breath, Wheezing Cardiac (ROS): No: Chest Pain, Irregular Heart Rate, Palpitations, Syncope ABD/GI: Yes: Abdominal Distended, Diarrhea. No: Nausea, Poor Appetite, Vomiting : No: Burning, Dysuria, Discharge, Frequency, Urgency, Testicular Mass Musculoskeletal: No: Back Pain, Joint Pain, Joint Swelling, Muscle Pain Integumentary: No: Bruising, Change in Color, Erythema, Pruritus, Rash, Sweating Neurological: No: Headache, Tingling, Tremors, Ataxia Endocrine: No: Excessive Sweating, Flushing, Intolerance to Cold, Intolerance to Heat *Physical Exam - Physical Exam General Appearance: Yes: Nourished, Mild Distress HEENT: positive: EOMI, LISA, Normal Voice. negative: Scleral Icterus (R), Scleral Icterus (L), Nasal Congestion, Rhinorrhea, Lesions Respiratory/Chest: positive: Lungs Clear, Normal Breath Sounds. negative: Chest Tender, Respiratory Distress, Crackles, Rales, Rhonchi, Stridor, Wheezing Cardiovascular: positive: Regular Rhythm, Regular Rate, S1, S2. negative: Edema , Murmur Gastrointestinal/Abdominal: positive: Normal Bowel Sounds, Tender (epigastric), Distended, Other (no CVA tenderness). negative: Pulsatile Mass, Guarding, Rebound, Hepatomegaly, Spleenomegaly Male Genitalia: negative: hernia Integumentary: positive: Normal Color Neurologic: positive: Fully Oriented, Alert, Normal Mood/Affect, Normal Response. negative: Numbness, Confused, Disoriented ED Treatment Course - LABORATORY CBC & Chemistry Diagram: 10/04/18 18:54 10/04/18 18:54 Medical Decision Making - Medical Decision Making 10/04/18 19:06 Ordered CBC, CMP, lipase, UA, EKG, CXR, XR AB, CT AB w oral/iv contrast EKG shows new flipped T waves in lead III, nonspecific, otherwise unchanged from 2017 IV fluids, zofran CBC, lactate normal Cr 1.8 (baseline 1 from 2017) - acute kidney injury likely prerenal, giving fluids Dilated bowel loops on AB XR Aubrey Blaire is a 67yM with PMHx of HTN, HLD, schizoaffective disorder, and SBO ( 2014, 06/2018) presenting with 3d of abdominal distension and pain. Likely small bowel obstruction vs ileus based on past hx of abdominal surgery and SBO, abdominal distention presentation. Consider ileus for AB distension, pancreatitis and gastritis for abdominal pain. Low risk for abdominal aortic distension d/t absence of smoking history, normal BP. Given 2L NS, zofran. Vomited once in ED. Pending CT AB. Signed out to Dr. Marvin Lopez. *DC/Admit/Observation/Transfer Diagnosis at time of Disposition: Abdominal distention - Discharge Dispostion Condition at time of disposition: Stable - Referrals Referrals: Cristy Diaz MD [Primary Care Provider] - - Patient Instructions - Post Discharge Activity
[2018-10-04 18:41] VITALS: BMI 25.2
[2018-10-04] MEDS ORDERED: SODIUM CHLORIDE 0.9% 500 ML INFUS.BAG IV ONE ×2 (18:51→21:15)
[2018-10-04] MEDS ORDERED: ONDANSETRON 4 MG/2 ML VIAL IVPUSH ONE (18:51)
[2018-10-04 19:11] LABS: BASO % 0.3 % (0-2.0); EOS % 2.4 % (0-4.5); HEMATOCRIT 39.2 % (35.4-49); HEMOGLOBIN 12.9 GM/dl (11.7-16.9); LYMPH % 17.2 % (8-40); MCH 31.6 pg (25.7-33.7); MEAN PLT VOLUME 8.1 fl (7.5-11.1); MONO % 15.3 % (3.8-10.2); NEUT % 64.8 % (42.8-82.8); PLATELET COUNT 190 K/MM3 (134-434); RBC 4.08 M/mm3 (4.00-5.60); RDW 12.7 % (11.9-15.9); WHITE BLOOD COUNT 6.2 K/mm3 (4.0-10.8)
--- NOTE | 2018-10-04 19:18 | PDOC ---
Documentation entered by Shoshana aGrcia SCRIBE, acting as scribe for Tj Sher MD. Tj Sher MD: This documentation has been prepared by the Jose hui Xhesika, SCRIBE, under my direction and personally reviewed by me in its entirety. I confirm that the documentation accurately reflects all work, treatment, procedures, and medical decision making performed by me. Attending Attestation - Resident Resident Name: Pierre Garrison - HPI HPI: 10/04/18 18:57 The patient is a 67 year old male, from [facility] with a significant PMH of HTN, HLD, DM, schizoaffective d/o, bilateral inguinal hernia, SBO 2014 & 06/2018 (ng tube, admitted at [facility], conservatively managed), who presents to the emergency department via EMS with 3 days of abdominal distention and abdominal pain. The patient describes his abdominal pain as 6/10, constant, substernal pain radiating to his epigastric region. The patient notes he had one episode of soft watery diarrhea at 4pm which is his baseline and 1 episode of vomiting this morning. The patient does not have any complaints right now, however, he endorses mild abdominal pain. The patient denies fever, chills, nausea. Denies dysuria, frequency, urgency and hematuria. Allergies: NKDA, Deshler Social History: No alcohol, tobacco, or drug use reported. Past Surgical History: Colonoscopy, hernia repair, rectal polyp removed PCP: Dr. Cristy Diaz - Physicial Exam PE: 10/04/18 19:14 a and o x 3, nad op moist chest clear heart rr nl s1s2 abd distended mildly firm, nl BS, no guarding or rebound, tympanitic extrem nl pulses, no edema - Medical Decision Making 10/04/18 19:16 hx of sbo wtih recurrent sx, suspect recurrent SBO IV hydration NPO labs, CXR, AXR, CT abd and pelvis with po and IV contrast endorsed to Dr Camara with all of the above still pending
[2018-10-04 19:23] LABS: ALBUMIN 4.1 g/dl (3.4-5.0); BILIRUBIN,TOTAL 1.3 mg/dl (0.2-1); CREATININE 1.8 mg/dl (0.55-1.3); POTASSIUM 4.5 mmol/L (3.5-5.1); TOT PROT 7.9 g/dl (6.4-8.2)
[2018-10-04] MEDS ORDERED: ONDANSETRON 4 MG/2 ML VIAL ONE (19:46)
[2018-10-04 21:49] LABS: EPITHELIAL CELLS FEW /hpf
[2018-10-04 21:50] LABS: AMORP URATES 1+ /hpf (NONE SEEN); URIC ACID CRYSTALS 1+ /hpf (NONE SEEN)
[2018-10-04] MEDS ORDERED: LIDOCAINE VISCOUS 2% ORAL/TOP 20 ML UNIT-DOSE CUP ONE (23:10)
[2018-10-04] MEDS ORDERED: SODIUM CHLORIDE 1,000 ML IV SCH (23:30)
--- NOTE | 2018-10-04 23:30 | PDOC ---
*Physical Exam - Vital Signs Last Vital Signs Temp Pulse Resp BP Pulse Ox 98.2 F 80 16 109/67 96 10/04/18 18:18 10/04/18 18:18 10/04/18 18:18 10/04/18 18:18 10/04/18 18:18 ED Treatment Course - LABORATORY CBC & Chemistry Diagram: 10/04/18 18:54 10/04/18 18:54 - ADDITIONAL ORDERS Additional order review: Laboratory Results 10/04/18 10/04/18 10/04/18 21:25 18:54 18:54 Sodium Potassium Chloride Carbon Dioxide Anion Gap BUN Creatinine Est GFR (CKD-EPI)AfAm Est GFR (CKD-EPI)NonAf Random Glucose Lactic Acid 1.4 Calcium Total Bilirubin AST ALT Alkaline Phosphatase Total Protein Albumin Lipase 54 L Urine Color Yellow Urine Appearance Clear Urine pH 5.0 Urine Protein 1+ H Urine Glucose (UA) Negative Urine Ketones Trace Urine Blood Trace-intact Urine Nitrite Negative Urine Bilirubin 1+ H Urine Urobilinogen 0.2 Ur Leukocyte Esterase Negative Urine RBC 5-10 Urine WBC 0-2 Ur Transition Epith Cell Few Uric Acid Crystals 1+ Amorphous Urates 1+ Urine Bacteria Few 10/04/18 18:54 Sodium 135 L Potassium 4.5 Chloride 103 Carbon Dioxide 22 Anion Gap 10 BUN 37.0 H Creatinine 1.8 H Est GFR (CKD-EPI)AfAm 44.15 Est GFR (CKD-EPI)NonAf 38.10 Random Glucose 127 H Lactic Acid Calcium 9.0 Total Bilirubin 1.3 H AST 19 ALT 9 L Alkaline Phosphatase 56 Total Protein 7.9 Albumin 4.1 Lipase Urine Color Urine Appearance Urine pH Urine Protein Urine Glucose (UA) Urine Ketones Urine Blood Urine Nitrite Urine Bilirubin Urine Urobilinogen Ur Leukocyte Esterase Urine RBC Urine WBC Ur Transition Epith Cell Uric Acid Crystals Amorphous Urates Urine Bacteria 10/04/18 18:54 RBC 4.08 MCV 96.0 MCHC 33.0 RDW 12.7 MPV 8.1 Neutrophils % 64.8 Lymphocytes % 17.2 Monocytes % 15.3 H Eosinophils % 2.4 Basophils % 0.3 - Medications Given in the ED: ED Medications Discontinued Medications Generic Name Dose Route Start Last Admin Trade Name Freq PRN Reason Stop Dose Admin Ondansetron HCl 4 mg 10/04/18 18:51 10/04/18 19:53 Zofran Injection IVPUSH 10/04/18 18:52 4 mg NOW ONE Administration Sodium Chloride 1,000 ml 10/04/18 18:51 10/04/18 19:52 Normal Saline - IV 10/04/18 18:52 1,000 ml ONCE ONE Administration Sodium Chloride 1,000 ml 10/04/18 21:15 10/04/18 22:40 Normal Saline - IV 10/04/18 21:16 1,000 ml ONCE ONE Administration Medical Decision Making - Medical Decision Making 10/04/18 23:30 ileus vs early sbo margarito IVF supportive mgmt ngt case d/w hospitalist team surgery consult in AM *DC/Admit/Observation/Transfer Diagnosis at time of Disposition: Abdominal distention - Discharge Dispostion Condition at time of disposition: Stable - Referrals Referrals: Cristy Diaz MD [Primary Care Provider] - - Patient Instructions - Post Discharge Activity
--- NOTE | 2018-10-04 23:31 | PDOC ---
History of Present Illness - General Chief Complaint: Pain Stated Complaint: ABDOMINAL BLOATING Time Seen by Provider: 10/04/18 18:23 Past History - Past Medical History Allergies/Adverse Reactions: Allergies Allergy/AdvReac Type Severity Reaction Status Date / Time strawberry Allergy Intermediate Rash Verified 10/04/18 18:38 Home Medications: Ambulatory Orders Aspirin 81 mg PO DAILY 10/04/18 Cholecalciferol (Vitamin D3) [Vitamin D] 2,000 unit PO DAILY 10/04/18 Clonazepam 0.5 mg PO DAILY 10/04/18 Cyanocobalamin (Vitamin B-12) [Vitamin B-12] 1 tab SL DAILY 10/04/18 Donepezil HCl [Aricept] 5 mg PO DAILY 10/04/18 Levothyroxine [Synthroid -] 50 mcg PO DAILY 10/04/18 Metoprolol Succinate [Toprol Xl] 25 mg PO DAILY 10/04/18 Olanzapine [Zyprexa] 1 tab PO DAILY 10/04/18 Olanzapine [Zyprexa] 5 mg PO HS 10/04/18 Omeprazole Magnesium [Prilosec Otc] 20 mg PO DAILY 10/04/18 Cancer: No Cardiac Disorders: No COPD: No CHF: No GI Disorders: Yes (SBO) HTN: Yes Psychiatric Problems: Yes (DEMENTIA, DEPRESSION) Thyroid Disease: Yes - Surgical History Abdominal Surgery: Yes (RECTAL POLYP REMOVED, BILATERAL HERNIA REPAIR) - Immunization History Immunization Up to Date: Yes - Suicide/Smoking/Psychosocial Hx Smoking Status: No Smoking History: Never smoked Years of Tobacco Use: 0 Have you smoked in the past 12 months: No Number of Cigarettes Smoked Daily: 0 Information on smoking cessation initiated: No Hx Alcohol Use: No Drug/Substance Use Hx: No Substance Use Type: None Hx Substance Use Treatment: No *Physical Exam - Vital Signs Last Vital Signs Temp Pulse Resp BP Pulse Ox 98.2 F 80 16 109/67 96 10/04/18 18:18 10/04/18 18:18 10/04/18 18:18 10/04/18 18:18 10/04/18 18:18 ED Treatment Course - LABORATORY CBC & Chemistry Diagram: 10/04/18 18:54 10/04/18 18:54 - ADDITIONAL ORDERS Additional order review: Laboratory Results 10/04/18 10/04/18 10/04/18 21:25 18:54 18:54 Sodium Potassium Chloride Carbon Dioxide Anion Gap BUN Creatinine Est GFR (CKD-EPI)AfAm Est GFR (CKD-EPI)NonAf Random Glucose Lactic Acid 1.4 Calcium Total Bilirubin AST ALT Alkaline Phosphatase Total Protein Albumin Lipase 54 L Urine Color Yellow Urine Appearance Clear Urine pH 5.0 Urine Protein 1+ H Urine Glucose (UA) Negative Urine Ketones Trace Urine Blood Trace-intact Urine Nitrite Negative Urine Bilirubin 1+ H Urine Urobilinogen 0.2 Ur Leukocyte Esterase Negative Urine RBC 5-10 Urine WBC 0-2 Ur Transition Epith Cell Few Uric Acid Crystals 1+ Amorphous Urates 1+ Urine Bacteria Few 10/04/18 18:54 Sodium 135 L Potassium 4.5 Chloride 103 Carbon Dioxide 22 Anion Gap 10 BUN 37.0 H Creatinine 1.8 H Est GFR (CKD-EPI)AfAm 44.15 Est GFR (CKD-EPI)NonAf 38.10 Random Glucose 127 H Lactic Acid Calcium 9.0 Total Bilirubin 1.3 H AST 19 ALT 9 L Alkaline Phosphatase 56 Total Protein 7.9 Albumin 4.1 Lipase Urine Color Urine Appearance Urine pH Urine Protein Urine Glucose (UA) Urine Ketones Urine Blood Urine Nitrite Urine Bilirubin Urine Urobilinogen Ur Leukocyte Esterase Urine RBC Urine WBC Ur Transition Epith Cell Uric Acid Crystals Amorphous Urates Urine Bacteria 10/04/18 18:54 RBC 4.08 MCV 96.0 MCHC 33.0 RDW 12.7 MPV 8.1 Neutrophils % 64.8 Lymphocytes % 17.2 Monocytes % 15.3 H Eosinophils % 2.4 Basophils % 0.3 - Medications Given in the ED: ED Medications Discontinued Medications Generic Name Dose Route Start Last Admin Trade Name Freq PRN Reason Stop Dose Admin Ondansetron HCl 4 mg 10/04/18 18:51 10/04/18 19:53 Zofran Injection IVPUSH 10/04/18 18:52 4 mg NOW ONE Administration Sodium Chloride 1,000 ml 10/04/18 18:51 10/04/18 19:52 Normal Saline - IV 10/04/18 18:52 1,000 ml ONCE ONE Administration Sodium Chloride 1,000 ml 10/04/18 21:15 10/04/18 22:40 Normal Saline - IV 10/04/18 21:16 1,000 ml ONCE ONE Administration *DC/Admit/Observation/Transfer Diagnosis at time of Disposition: Abdominal distention - Discharge Dispostion Condition at time of disposition: Stable Decision to Admit order: Yes - Referrals Referrals: Cristy Diaz MD [Primary Care Provider] - - Patient Instructions - Post Discharge Activity
[2018-10-05] MEDS ORDERED: LEVOTHYROXINE NA 50 MCG TABLET (FP) PO SCH (07:00)
[2018-10-05 07:41] LABS: HEMOGLOBIN 11.8 GM/dl (11.7-16.9); MCH 31.4 pg (25.7-33.7); MCHC 32.9 g/dl (32.0-35.9); MEAN CELL VOLUME 95.4 fl (80-96); PLATELET COUNT 150 K/MM3 (134-434); RBC 3.77 M/mm3 (4.00-5.60); RDW 12.3 % (11.9-15.9); WHITE BLOOD COUNT 6.1 K/mm3 (4.0-10.8)
[2018-10-05 08:13] LABS: ALBUMIN 3.5 g/dl (3.4-5.0); CALCIUM 8.2 mg/dl (8.5-10); CREATININE 1.1 mg/dl (0.55-1.3); MAGNESIUM 1.6 mg/dL (1.8-2.4); POTASSIUM 3.8 mmol/L (3.5-5.1); TOT PROT 6.7 g/dl (6.4-8.2)
[2018-10-05] MEDS ORDERED: MAGNESIUM 1GM/D5W - 1 GM/100 ML IVPB IVPB ONE ×2 (09:00→11:00)
[2018-10-05] MEDS: KCL 10 MEQ IVPB 10 MEQ/100 ML INFUS.BAG IVPB SCH ×2 (09:29→10:35)
[2018-10-05] MEDS: CYANOCOBALAMIN 1,000 MCG TABLET (FP) PO SCH (09:30)
[2018-10-05] MEDS: CHOLECALCIFEROL (VIT D3) 1,000 UNIT (25 MCG) TABLET PO SCH (09:30)
[2018-10-05] MEDS: PANTOPRAZOLE 20 MG TABLET (FP) PO SCH (09:30)
[2018-10-05] MEDS: metoPROLOL SUCCINATE 25 MG TAB.SR.24H (FP) PO SCH (09:30)
[2018-10-05] MEDS: clonazePAM 0.5 MG TABLET PO SCH (09:30)
[2018-10-05] MEDS ORDERED: PT OWN MED DRAWER 7, Y5N ONE (09:33)
[2018-10-05] MEDS ORDERED: OLANZAPINE 2.5 MG, OLANZAPINE 5 MG PO SCH (10:00)
[2018-10-05] MEDS ORDERED: OLANZapine 7.5 MG TABLET PO SCH ×2 (10:00→22:00)
[2018-10-05] MEDS ORDERED: ASPIRIN 81 MG CHEWABLE TABLETS PO SCH (10:00)
--- NOTE | 2018-10-05 11:17 | PN ---
Progress Note (short form) - Note Progress Note: Patient seen and consult dictated. Patient admitted with abdominal distention and some cramps with hx of ?SBO in past. AXR nonspecific without obvious air/fluid levels ?ileus vs early SBO? Normal vital signs, temp, WBC NG with small amount of output and patient states he had BMs this am and has less distention/cramps CT results pending Clinically improving ?resolving SBO vs ileus Would await CT reading and monitor NG output Surgical consult pending Consider removing or clamping NG and monitor for bowel function/BM Repeat AXR in am
--- NOTE | 2018-10-05 11:45 | EKG ---
Test Reason : Blood Pressure : / mmHG Vent. Rate : 077 BPM Atrial Rate : 077 BPM P-R Int : 130 ms QRS Dur : 092 ms QT Int : 364 ms P-R-T Axes : 047 051 013 degrees QTc Int : 411 ms NORMAL SINUS RHYTHM NONSPECIFIC T WAVE ABNORMALITY ABNORMAL ECG WHEN COMPARED WITH ECG OF 21-JUL-2018 12:20, T WAVE INVERSION NOW EVIDENT IN ANTERIOR LEADS Confirmed by MOHIT HANSON MD ([id number]) on 10/05/2018 11:45:00 AM Referred By: EDER SHAH Confirmed By:MOHIT HANSON MD
--- NOTE | 2018-10-05 12:49 | CONS ---
DATE OF CONSULTATION: 10/05/2018 Asked to evaluate this 67-year-old gentleman admitted with abdominal distention and possible small-bowel obstruction. 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 The patient was admitted via the emergency room last night with abdominal distention. He has a history of possible small-bowel obstruction, including an episode in June of this year, which was treated conservatively with an NG tube. The bowel function returned, with passage of stool and the patient did not require any surgical intervention. The differential diagnosis at that time was an ileus or enteritis versus a partial small-bowel obstruction. The patient is status post bilateral inguinal hernia repairs in the past. At the present time, the patient is admitted via the emergency room with abdominal distention. His initial x-ray of the abdomen showed some retained stool and some dilated loops of large and small bowel, possibly consistent with ileus versus an early small-bowel obstruction. He states that he had some pain and some cramps, but apparently denied any nausea, vomiting, fever, chills, and was having bowel movements. The patient's laboratory tests included an unremarkable CBC with a white count of 6.2, and normal electrolytes with the exception of a borderline low serum sodium 135. His liver chemistries and lipase level were unremarkable. His CAT scan results are pending. The patient is currently seen lying in bed relatively comfortable. He has an NG tube which has drained only approximately 200 mL of fluid. He states he is less distended and he believes he has had at least 2 bowel movements today. On exam, he is a well-developed gentleman, alert and comfortable, with an NG tube in place. His vital signs are unremarkable with normal temperature, blood pressure 142/81 and a heart rate of 90. His lungs are clear bilaterally. He has a regular rate and rhythm on cardiac exam. His abdomen is slightly distended but soft, nontender, with normoactive bowel sounds. Patient with possible partial small-bowel obstruction, resolving, versus an ileus, also resolving. Await results of the CAT scan; however, his x-ray of the abdomen does not show definitive obstruction and does show some retained stool. He may have an ileus due to an infectious etiology or possibly related to one of his medications; however, he is clinically improving presently. Will await the CAT scan. If NG tube does not drain significant amounts, would clamp and/or remove and follow clinically. Surgical consult pending. AMANUEL RDZ M.D. MEHREEN/[id number]
--- NOTE | 2018-10-05 13:17 | PN ---
Progress Note, Physician Chief Complaint: abd pain History of Present Illness: 67 year old M with h/o HTN, HLD, schizoaffective disorder, recurrent SBO who presents to ED with abd pain and vomiting. Imaging c/w SBO. NGT placed to LWS and patient admitted for continued management. GI and Gen surgery consulted. OVernight and this morning, pt had two large brown bowel movements. Reports improved symptoms. Remains NPO. CT abd/pelvis done overnight pending - Current Medication List Current Medications: Active Medications Aspirin (Asa -) 81 mg PO DAILY REPLACED BY [facility] Last Admin: 10/05/18 09:30 Dose: 81 mg Cholecalciferol (Vitamin D3 -) 2,000 unit PO DAILY REPLACED BY [facility] Last Admin: 10/05/18 09:30 Dose: 2,000 unit Clonazepam (Klonopin -) 0.5 mg PO DAILY REPLACED BY [facility] Last Admin: 10/05/18 09:30 Dose: 0.5 mg Cyanocobalamin (Vitamin B12 -) 1,000 mcg PO DAILY REPLACED BY [facility] Last Admin: 10/05/18 09:30 Dose: 1,000 mcg Donepezil HCl (Aricept -) 5 mg PO HS REPLACED BY [facility] Sodium Chloride (Normal Saline -) 1,000 mls @ 75 mls/hr IV ASDIR REPLACED BY [facility] Last Admin: 10/05/18 06:08 Dose: 75 mls/hr Levothyroxine Sodium (Synthroid -) 50 mcg PO ACBK REPLACED BY [facility] Last Admin: 10/05/18 06:46 Dose: 50 mcg Metoprolol Succinate (Toprol Xl -) 25 mg PO DAILY REPLACED BY [facility] Last Admin: 10/05/18 09:30 Dose: 25 mg Olanzapine (Zyprexa -) 5 mg PO HS MARIA TERESA Olanzapine (Zyprexa -) 7.5 mg PO DAILY REPLACED BY [facility] Last Admin: 10/05/18 09:33 Dose: 7.5 mg Pantoprazole Sodium (Protonix -) 20 mg PO DAILY REPLACED BY [facility] Last Admin: 10/05/18 09:30 Dose: 20 mg - Objective Vital Signs: Vital Signs Temperature 98 F 10/05/18 09:41 Pulse Rate 92 H 10/05/18 09:41 Respiratory Rate 18 10/05/18 09:41 Blood Pressure 142/81 10/05/18 09:41 O2 Sat by Pulse Oximetry (%) 95 10/05/18 09:00 Constitutional: Yes: No Distress, Calm, Pallor Eyes: Yes: Conjunctiva Clear, EOM Intact, Sclera Icterus HENT: Yes: Atraumatic, Normocephalic, Other (NGT to right nare) Neck: Yes: Supple, Trachea Midline Cardiovascular: Yes: Regular Rate and Rhythm Respiratory: Yes: Regular, CTA Bilaterally Gastrointestinal: Yes: Soft, Hypoactive Bowel Sounds ...Rectal Exam: Yes: Deferred Musculoskeletal: Yes: WNL Extremities: Yes: WNL Edema: No Peripheral Pulses: Left Radial: 2+, Right Radial: 2+, Left Doralis Pedis: 2+, Right Dorsalis Pedis: 2+ Integumentary: Yes: WNL Neurological: Yes: Alert ...Motor Strength: WNL Psychiatric: Yes: Alert, Oriented Labs: CBC, BMP 10/05/18 07:00 10/05/18 07:00 - ....Imaging Chest X-ray: Report Reviewed (CXR 10/05/2018 Impression: No acute chest pathology. ) X-ray: Report Reviewed (X-ray abd 10/04/2018 Abdomen: Epigastric pain. 4 views of the abdomen have been submitted. There are degenerative changes, left pelvic phlebolith , no sign of free air and no sign of organomegaly or calcifications of significance. The lung bases appear well aerated. There is retained stool. There is air in the colon and in some small bowel loops. Pneumatosis or pneumoperitoneum is not seen. Food products are seen in the stomach. The patient may be developing partial small bowel obstruction. There is a slightly elevated right hemidiaphragm. For more complete evaluation, further imaging with CT is suggested. A CT scan was performed on 10/04/2018 at 2133 hours. Please see that report.) Cat Scan: Other (CT abd and pelvis 10/04/2018 Preliminary Impression: The colon is not decompressed. LArge bladder diverticulum. There are a few diverticula within the colon without evidence of acute diverticulitis. No intra-abd free air or fluid. non obstructing left renal stone. multiple gallstones without evidence of acute cholecystitis.) Other: Report Reviewed (AXR 10/05/2018 Abdomen: Check oral contrast progression in small bowel Three images of the abdomen reveal no sign of oral contrast visualized. An NG tube is present with tip in the stomach. There is a left pelvic phlebolith. There is no sign of free air. The lung bases appear well aerated. Correlation recommended.) Problem List - Problems (1) HTN (hypertension) Assessment/Plan: continue Toprol XL monitor on tele Code(s): I10 - ESSENTIAL (PRIMARY) HYPERTENSION Qualifiers: Hypertension type: essential hypertension Qualified Code(s): I10 - Essential (primary) hypertension (2) Partial small bowel obstruction Assessment/Plan: NPO IVF NGT to LWS CT scan pending, repeat AXR ordered await recommendations from gen surgery GI following Once cleared, start w/ clear liquids and progress as tolerated Code(s): K56.600 - PARTIAL INTESTINAL OBSTRUCTION, UNSPECIFIED TO CAUSE (3) Schizoaffective disorder Assessment/Plan: pt currently stable c/w Zyprexa, Aricept, klonopin hold vitamin B12 and D3 until cleared to eat Code(s): F25.9 - SCHIZOAFFECTIVE DISORDER, UNSPECIFIED Qualifiers: Schizoaffective disorder type: unspecified Qualified Code(s): F25.9 - Schizoaffective disorder, unspecified (4) GERD (gastroesophageal reflux disease) Assessment/Plan: protonix daily Code(s): K21.9 - GASTRO-ESOPHAGEAL REFLUX DISEASE WITHOUT ESOPHAGITIS (5) Hypothyroidism Assessment/Plan: synthroid 50mcg daily f/u AM TSH, T4F Code(s): E03.9 - HYPOTHYROIDISM, UNSPECIFIED (6) Prophylactic measure Assessment/Plan: OOB to chair start SC heparin BID Code(s): Z29.9 - ENCOUNTER FOR PROPHYLACTIC MEASURES, UNSPECIFIED Impression/Plan Impression/Plan: Code status: Full Visit type - Emergency Visit Emergency Visit: Yes ED Registration Date: 10/04/18 Care time: The patient presented to the Emergency Department on the above date and was hospitalized for further evaluation of their emergent condition. - New Patient This patient is new to me today: Yes Date on this admission: 10/05/18 - Critical Care Critical Care patient: No - Discharge Referral Referred to [facility] Med [facility] No
[2018-10-05] MEDS ORDERED: METOPROLOL TARTRATE 5 MG/5 ML VIAL IVPUSH PRN (15:44)
--- NOTE | 2018-10-05 15:57 | CONSULT ---
Consult Consult Specialty:: General Surgery Referred by:: Royal Umaña NP Reason for Consultation:: SBO - History of Present Illness Chief Complaint: bloating, N/V, epigastric pain History of Present Illness: 67yo M with HTN, HLD, schizoaffective disorder, h/o previous ?SBO treated conservatively in 2010, 2014, 07/17, s/p bilateral open inguinal hernia repair ( Lx1, Rx2), no abdominal surgeries, last colonoscopy ?years ago ("twisted colon" per sister), admitted from detention through ER yesterday with c/o vomiting intermittently since Friday morning, abdominal bloating, loose stool (baseline, per pt), and epigastric pain beginning after the emesis. He denies f/c, recent illness, h/a or dizziness, dysuria. In the ER, he had normal wbc and was afebrile, CT with oral but no IV contrast showed po contrast into at least mid small bowel as well as stomach and distal esophagus, with dilated SB loops in pelvis and no clear transition but normal caliber distal ileal loops and normal stool burden in colon with some air; no free air or fluid, + gallstones without signs of cholecystitis, few diverticuli without diverticulitis, normal appendix. He was admitted to medicine with NGT to suction and IV fluids. He got po meds this am including asa with clamping of the NGT. He had 2 large, loose, brown BMs this morning and is passing gas. GI has seen, and Surgery was asked to assess. He is seen and examined in bed, with sister and girlfriend at bedside. He indicates his pain still comes and goes, points to epigastric area with some radiation from side to side. AXR was done shortly ago, showing NG tip just into stomach, and air-fluid levels in still-dilated SB loops, as well as air in colon without free air, no contrast visible in colon or rectum. He feels "bloated." States he does often have loose bowel movements at home, because he takes colace for constipation. Had the two BMs earlier today. 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 (from [employer] review)), Other (Schizophrenia vs schizo affective disorder) Cardio/Vascular: Yes: HTN, Hyperlipdemia, Other (orthostatic hypotension) Gastrointestinal: Yes: Constipation, GERD, Other (SBO, bilateral inguinal hernia repairs) Psych: Yes: Schizophrenia (schizoaffective disorder) Endocrine: Yes: Diabetes Mellitus (??preDM??), Hypothyroidism Dermatology: Yes: Other (Vitiligo) - Past Surgical History Past Surgical History: Yes: Colonoscopy, Hernia Repair (left inguinal open, right inguinal open x2) - Alcohol/Substance Use Hx Alcohol Use: No History of Substance Use: reports: None - Smoking History Smoking history: Never smoked Have you smoked in the past 12 months: No - Social History Usual Living Arrangement: Assisted Living (with girlfriend) ADL: Family Assistance Home Medications - Allergies Allergies/Adverse Reactions: Allergies Allergy/AdvReac Type Severity Reaction Status Date / Time strawberry Allergy Intermediate Rash Verified 10/04/18 18:38 - Home Medications Home Medications: Ambulatory Orders Aspirin 81 mg PO DAILY 10/04/18 Cholecalciferol (Vitamin D3) [Vitamin D] 2,000 unit PO DAILY 10/04/18 Clonazepam 0.5 mg PO DAILY 10/04/18 Cyanocobalamin (Vitamin B-12) [Vitamin B-12] 1 tab SL DAILY 10/04/18 Donepezil HCl [Aricept] 5 mg PO DAILY 10/04/18 Levothyroxine [Synthroid -] 50 mcg PO DAILY 10/04/18 Metoprolol Succinate [Toprol Xl] 25 mg PO DAILY 10/04/18 Olanzapine [Zyprexa] 1 tab PO DAILY 10/04/18 Olanzapine [Zyprexa] 5 mg PO HS 10/04/18 Omeprazole Magnesium [Prilosec Otc] 20 mg PO DAILY 10/04/18 Family Disease History - Family Disease History Family Disease History: CA: Sister (one w/lung, one w/stomach, both >60 at time , both smokers), Other: Mother (TB over 70, from) Review of Systems - Review of Systems Constitutional: denies: Chills, Fever, Loss of Appetite Eyes: reports: Other (reading glasses). denies: Blurred Vision, Recent Change in Vision HENT: denies: Difficult Swallowing, Throat Pain Neck: denies: Swollen Glands, Tenderness Cardiovascular: denies: Chest Pain, Palpitations Respiratory: reports: Cough (some chronic cough). denies: SOB Gastrointestinal: reports: Abdominal Pain, Bloating, Constipation (takes colace for it), Diarrhea (frequently has loose stools), Nausea, Vomiting Genitourinary: denies: Burning Musculoskeletal: denies: Back Pain, Joint Pain, Muscle Pain Integumentary: denies: Change in Color, Rash Neurological: denies: Dizziness, Headache, Unsteady Gait Physical Exam Vital Signs: Vital Signs Temperature 98 F 10/05/18 09:41 Pulse Rate 92 H 10/05/18 09:41 Respiratory Rate 18 10/05/18 09:41 Blood Pressure 142/81 10/05/18 09:41 O2 Sat by Pulse Oximetry (%) 95 10/05/18 09:00 Constitutional: Yes: Well Nourished, No Distress, Calm Eyes: Yes: Conjunctiva Clear, EOM Intact. No: Sclera Icterus HENT: Yes: Atraumatic, Normocephalic, Other (NGT in place - advanced from 55cm to 69 at nares and resecured) Neck: Yes: Supple, Trachea Midline Cardiovascular: Yes: Regular Rate and Rhythm Respiratory: Yes: Regular, CTA Bilaterally Gastrointestinal: Yes: Normal Bowel Sounds (normal to hyperactive), Soft, Distention (with tympany), Other (well-healed inguinal scars - one on left, two on right). No: Tenderness, Tenderness, Epigastrium ...Rectal Exam: Yes: Sphincter Tone Normal, Other (vault empty, collapsed, scant brown flecks and clear/light fluid on glove tip, no gross blood) Renal/: No: CVA Tenderness - Left, CVA Tenderness - Right Musculoskeletal: No: Joint Stiffness, Joint Swelling Extremities: No: Cool, Cyanosis Edema: No Peripheral Pulses WNL: Yes Integumentary: No: Jaundice, Rash Neurological: Yes: Alert, Oriented, Other (slightly delayed response time) Psychiatric: Yes: Alert, Oriented. No: Agitated Labs: CBC, BMP 10/05/18 07:00 10/05/18 07:00 CMP Sodium 135 mmol/L (136-145) L 10/05/18 07:00 Potassium 3.8 mmol/L (3.5-5.1) 10/05/18 07:00 Chloride 102 mmol/L (98-107) 10/05/18 07:00 Carbon Dioxide 24 mmol/L (21-32) 10/05/18 07:00 Anion Gap 9 MMOL/L (8-16) 10/05/18 07:00 BUN 25.0 mg/dl (7-18) H 10/05/18 07:00 Creatinine 1.1 mg/dl (0.55-1.3) 10/05/18 07:00 Est GFR (CKD-EPI)AfAm 80.08 10/05/18 07:00 Est GFR (CKD-EPI)NonAf 69.10 10/05/18 07:00 POC Glucometer 100 UNITS (80-120) 10/05/18 06:38 Random Glucose 100 mg/dl (74-106) 10/05/18 07:00 Lactic Acid 1.4 mmol/L (0.4-2.0) 10/04/18 18:54 Calcium 8.2 mg/dl (8.5-10) L 10/05/18 07:00 Magnesium 1.6 mg/dL (1.8-2.4) L 10/05/18 07:00 Total Bilirubin 1.0 mg/dl (0.2-1) 10/05/18 07:00 AST 12 U/L (15-37) L 10/05/18 07:00 ALT 8 U/L (13-61) L 10/05/18 07:00 Alkaline Phosphatase 53 U/L (45-117) 10/05/18 07:00 Total Protein 6.7 g/dl (6.4-8.2) 10/05/18 07:00 Albumin 3.5 g/dl (3.4-5.0) 10/05/18 07:00 Lipase 54 U/L (73-393) L 10/04/18 18:54 BUN/Cr down a bit, still elevated lipase normal no coags yet Urine Test Results Urine Color Yellow 10/04/18 21:25 Urine Appearance Clear 10/04/18 21:25 Urine pH 5.0 (4.5-8) 10/04/18 21:25 Urine Protein 1+ (NEGATIVE) H 10/04/18 21:25 Urine Glucose (UA) Negative (NEGATIVE) 10/04/18 21:25 Urine Ketones Trace (NEGATIVE) 10/04/18 21:25 Urine Blood Trace-intact (NEGATIVE) 10/04/18 21:25 Urine Nitrite Negative (NEGATIVE) 10/04/18 21:25 Urine Bilirubin 1+ (NEGATIVE) H 10/04/18 21:25 Ur Leukocyte Esterase Negative (NEGATIVE) 10/04/18 21:25 Urine RBC 5-10 /hpf (0-4) 10/04/18 21:25 Urine WBC 0-2 (NEGATIVE) 10/04/18 21:25 Urine Bacteria Few /hpf (NEGATIVE) 10/04/18 21:25 Imaging - Results X-ray: Report Reviewed, Image Reviewed (SB and colon loops with air, air-fluid levels in SB on upright, still with dilated SB loops, no contrast visible in colon) Cat Scan: Report Reviewed, Image Reviewed (images reviewed - see hpi - stomach full of contrast, proximal sb loops possibly somewhat thickened? contrast present and through to mid-distal small bowel but not in colon yet, no clear transition) Problem List - Problems (1) Small bowel obstruction Assessment/Plan: admitted to medicine pt with unclear ileus vs gastroenteritis vs SBO in virgin abdomen h/o possible/partial SBO's treated conservatively nontender with little pain at this time but distended continue NPO - strict, with IVF and NGT to LCWS switch meds to IV or hold hold ASA NG repositioned increase IV fluids, add K+ trend labs serial AXR and exams if no contrast visible in colon on AXR by am, and abdomen still distended, consider repeating CT with IV contrast (no more po) get coags/T&S OOB to chair, may ambulate with NG temporarily clamped GI/DVT prophylaxis discussed with patient and family present that SBO with no history of abdominal surgery is usually treated surgically it is still possible that he could need exploration, but given history of quick resolution and possibility of ileus/enteritis, will follow for now as above seen and discussed with Royal Umaña NP Code(s): K56.609 - UNSP INTESTNL OBST, UNSP TO PARTIAL VERSUS COMPLETE OBST (2) Epigastric abdominal pain Code(s): R10.13 - EPIGASTRIC PAIN (3) Nausea and vomiting Code(s): R11.2 - NAUSEA WITH VOMITING, UNSPECIFIED Qualifiers: Vomiting type: unspecified Vomiting Intractability: non-intractable Qualified Code(s): R11.2 - Nausea with vomiting, unspecified (4) Abdominal distention Code(s): R14.0 - ABDOMINAL DISTENSION (GASEOUS) (5) Hypothyroidism Code(s): E03.9 - HYPOTHYROIDISM, UNSPECIFIED Qualifiers: Hypothyroidism type: unspecified Qualified Code(s): E03.9 - Hypothyroidism , unspecified (6) HTN (hypertension) Code(s): I10 - ESSENTIAL (PRIMARY) HYPERTENSION Qualifiers: Hypertension type: essential hypertension Qualified Code(s): I10 - Essential (primary) hypertension (7) Schizoaffective disorder Code(s): F25.9 - SCHIZOAFFECTIVE DISORDER, UNSPECIFIED Qualifiers: Schizoaffective disorder type: unspecified Qualified Code(s): F25.9 - Schizoaffective disorder, unspecified
[2018-10-05] MEDS ORDERED: D5-1/2NS+40 MEQ KCL - 40 MEQ/1,000 ML INFUS.BAG IV SCH (16:00)
--- NOTE | 2018-10-05 16:25 | HP ---
CHIEF COMPLAINT: Abd pain and vomiting HISTORY OF PRESENT ILLNESS: 67 yo male with PMH of schizoaffective disorder, HTN and glucose intolerance presents to the ER for evaluation after three days days of nausea, vomiting, and abdominal pain. PAtient has a history of recurrent SBO and decided to present for evaluation due to unrelenting symptoms. He denies fever/chills/CP/SOB. He is unable to recall any precipitating events. PT has never had any abdominal surgeries, + h/o bilateral inguinal hernia repair. His prior SBOs were in 2010, 2014 & 06/2018 which were all conservatively managed. ER course was notable for: (1) JESE (Scr 1.8), pt given IVF. Pt hemodynamically stable (2) abd x-ray inconclusive (3) CT scan of the abdomen done with results pending. 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 pre-Diabetes Mellitus Dermatology: Yes: Other (Vitiligo) - Past Surgical History Past Surgical History: Yes: Colonoscopy, Hernia Repair Social History: Smoking: denies all Alcohol: denies all Drugs: denies all Family History: non-contributory Allergies strawberry Allergy (Intermediate, Verified 10/04/18 18:38) --> Rash GEodon --? Seizures HOME MEDICATIONS: Home Medications Medication Instructions Recorded Aspirin 81 mg PO DAILY 10/04/18 Cholecalciferol (Vitamin D3) 2,000 unit PO DAILY 10/04/18 [Vitamin D] Clonazepam 0.5 mg PO DAILY 10/04/18 Cyanocobalamin (Vitamin B-12) 1 tab SL DAILY 10/04/18 [Vitamin B-12] Donepezil HCl [Aricept] 5 mg PO DAILY 10/04/18 Levothyroxine [Synthroid -] 50 mcg PO DAILY 10/04/18 Metoprolol Succinate [Toprol Xl] 25 mg PO DAILY 10/04/18 Olanzapine [Zyprexa] 1 tab PO DAILY 10/04/18 Olanzapine [Zyprexa] 5 mg PO HS 10/04/18 Omeprazole Magnesium [Prilosec Otc] 20 mg PO DAILY 10/04/18 REVIEW OF SYSTEMS CONSTITUTIONAL: Absent: fever, chills, diaphoresis, generalized weakness, malaise, loss of appetite, weight change HEENT: Absent: rhinorrhea, nasal congestion, throat pain, throat swelling, difficulty swallowing, mouth swelling, ear pain, eye pain, visual changes CARDIOVASCULAR: Absent: chest pain, syncope, palpitations, irregular heart rate, lightheadedness , peripheral edema RESPIRATORY: Absent: cough, shortness of breath, dyspnea with exertion, orthopnea, wheezing, stridor, hemoptysis GASTROINTESTINAL: Absent: abdominal pain, abdominal distension, nausea, vomiting, diarrhea, constipation, melena, hematochezia GENITOURINARY: Absent: dysuria, frequency, urgency, hesitancy, hematuria, flank pain, genital pain MUSCULOSKELETAL: Absent: myalgia, arthralgia, joint swelling, back pain, neck pain SKIN: Absent: rash, itching, pallor HEMATOLOGIC/IMMUNOLOGIC: Absent: easy bleeding, easy bruising, lymphadenopathy, frequent infections ENDOCRINE: Absent: unexplained weight gain, unexplained weight loss, heat intolerance, cold intolerance NEUROLOGIC: Absent: headache, focal weakness or paresthesias, dizziness, unsteady gait, seizure, mental status changes, bladder or bowel incontinence PSYCHIATRIC: Absent: anxiety, depression, suicidal or homicidal ideation, hallucinations. PHYSICAL EXAMINATION Vital Signs - 24 hr 10/04/18 10/04/18 10/05/18 18:18 23:37 00:32 Temperature 98.2 F 98.2 F 98.6 F Pulse Rate 80 86 Pulse Rate [ 81 Right] Respiratory 16 18 19 Rate Blood Pressure 109/67 139/72 Blood Pressure 141/94 [Left] O2 Sat by Pulse 96 95 Oximetry (%) 10/05/18 10/05/18 10/05/18 00:45 06:00 06:19 Temperature 98.9 F Pulse Rate 90 Pulse Rate [ Right] Respiratory 19 Rate Blood Pressure 127/77 Blood Pressure [Left] O2 Sat by Pulse 95 95 Oximetry (%) 10/05/18 10/05/18 09:00 09:41 Temperature 98 F Pulse Rate 92 H Pulse Rate [ Right] Respiratory 19 18 Rate Blood Pressure 142/81 Blood Pressure [Left] O2 Sat by Pulse 95 Oximetry (%) GENERAL: Awake, alert, and fully oriented, in no acute distress. HEAD: Normal with no signs of trauma. EYES: Pupils equal, round and reactive to light, extraocular movements intact, sclera anicteric, conjunctiva clear. No lid lag. EARS, NOSE, THROAT: Ears normal, nares patent, oropharynx clear without exudates. Moist mucous membranes. NECK: Normal range of motion, supple without lymphadenopathy, LUNGS: Breath sounds equal, clear to auscultation bilaterally. No wheezes, and no crackles. No accessory muscle use. HEART: Regular rate and rhythm, normal S1 and S2 without murmur, rub or gallop. ABDOMEN: Soft, nontender, hypoactive bowel sounds, no guarding, no rebound, no masses. MUSCULOSKELETAL: Normal range of motion at all joints. UPPER EXTREMITIES: 2+ pulses, warm, well-perfused. No cyanosis. No clubbing. No peripheral edema. LOWER EXTREMITIES: 2+ pulses, warm, well-perfused. No calf tenderness. No peripheral edema. NEUROLOGICAL: slow pressured speech. fair memory recall PSYCHIATRIC: Cooperative. Good eye contact. Appropriate mood and flat affect. SKIN: Warm, dry, normal turgor, no rashes or lesions noted, Laboratory Results - last 24 hr 10/04/18 10/04/18 10/04/18 18:54 18:54 18:54 WBC 6.2 RBC 4.08 Hgb 12.9 Hct 39.2 MCV 96.0 MCH 31.6 MCHC 33.0 RDW 12.7 Plt Count 190 D MPV 8.1 Absolute Neuts (auto) 4.1 Neutrophils % 64.8 Lymphocytes % 17.2 Monocytes % 15.3 H Eosinophils % 2.4 Basophils % 0.3 Sodium 135 L Potassium 4.5 Chloride 103 Carbon Dioxide 22 Anion Gap 10 BUN 37.0 H Creatinine 1.8 H Est GFR (CKD-EPI)AfAm 44.15 Est GFR (CKD-EPI)NonAf 38.10 POC Glucometer Random Glucose 127 H Lactic Acid 1.4 Calcium 9.0 Magnesium Total Bilirubin 1.3 H AST 19 ALT 9 L Alkaline Phosphatase 56 Total Protein 7.9 Albumin 4.1 Lipase Urine Color Urine Appearance Urine pH Urine Protein Urine Glucose (UA) Urine Ketones Urine Blood Urine Nitrite Urine Bilirubin Urine Urobilinogen Ur Leukocyte Esterase Urine RBC Urine WBC Ur Transition Epith Cell Uric Acid Crystals Amorphous Urates Urine Bacteria 10/04/18 10/04/18 10/05/18 18:54 21:25 06:38 WBC RBC Hgb Hct MCV MCH MCHC RDW Plt Count MPV Absolute Neuts (auto) Neutrophils % Lymphocytes % Monocytes % Eosinophils % Basophils % Sodium Potassium Chloride Carbon Dioxide Anion Gap BUN Creatinine Est GFR (CKD-EPI)AfAm Est GFR (CKD-EPI)NonAf POC Glucometer 100 Random Glucose Lactic Acid Calcium Magnesium Total Bilirubin AST ALT Alkaline Phosphatase Total Protein Albumin Lipase 54 L Urine Color Yellow Urine Appearance Clear Urine pH 5.0 Urine Protein 1+ H Urine Glucose (UA) Negative Urine Ketones Trace Urine Blood Trace-intact Urine Nitrite Negative Urine Bilirubin 1+ H Urine Urobilinogen 0.2 Ur Leukocyte Esterase Negative Urine RBC 5-10 Urine WBC 0-2 Ur Transition Epith Cell Few Uric Acid Crystals 1+ Amorphous Urates 1+ Urine Bacteria Few 10/05/18 10/05/18 07:00 07:00 WBC 6.1 RBC 3.77 L Hgb 11.8 Hct 36.0 MCV 95.4 MCH 31.4 MCHC 32.9 RDW 12.3 Plt Count 150 D MPV 8.0 Absolute Neuts (auto) Neutrophils % Lymphocytes % Monocytes % Eosinophils % Basophils % Sodium 135 L Potassium 3.8 Chloride 102 Carbon Dioxide 24 Anion Gap 9 BUN 25.0 H Creatinine 1.1 Est GFR (CKD-EPI)AfAm 80.08 Est GFR (CKD-EPI)NonAf 69.10 POC Glucometer Random Glucose 100 Lactic Acid Calcium 8.2 L Magnesium 1.6 L Total Bilirubin 1.0 AST 12 L ALT 8 L Alkaline Phosphatase 53 Total Protein 6.7 Albumin 3.5 Lipase Urine Color Urine Appearance Urine pH Urine Protein Urine Glucose (UA) Urine Ketones Urine Blood Urine Nitrite Urine Bilirubin Urine Urobilinogen Ur Leukocyte Esterase Urine RBC Urine WBC Ur Transition Epith Cell Uric Acid Crystals Amorphous Urates Urine Bacteria ASSESSMENT/PLAN: Problem List - Problem (1) HTN (hypertension) Assessment/Plan: change PO toprol to IV metoprolol (with holding parameters) monitor on tele Code(s): I10 - ESSENTIAL (PRIMARY) HYPERTENSION Qualifiers: Hypertension type: essential hypertension Qualified Code(s): I10 - Essential (primary) hypertension (2) Partial small bowel obstruction Assessment/Plan: NPO IVF, D5Q 1/2NS with 40MEQ KCL NGT to LWS CT scan pending, repeat AXR ordered with imaging on 10/06 GI and GEn surg following Once cleared, start w/ clear liquids and progress as tolerated Code(s): K56.600 - PARTIAL INTESTINAL OBSTRUCTION, UNSPECIFIED TO CAUSE (3) Schizoaffective disorder Assessment/Plan: pt currently stable Hold Zyprexa, Aricept, klonopin hold vitamin B12 and D3 until cleared to eat Code(s): F25.9 - SCHIZOAFFECTIVE DISORDER, UNSPECIFIED Qualifiers: Schizoaffective disorder type: unspecified Qualified Code(s): F25.9 - Schizoaffective disorder, unspecified (4) GERD (gastroesophageal reflux disease) Assessment/Plan: protonix daily IV Code(s): K21.9 - GASTRO-ESOPHAGEAL REFLUX DISEASE WITHOUT ESOPHAGITIS (5) Hypothyroidism Assessment/Plan: synthroid 50mcg daily orally switched to IV equivalent f/u AM TSH, T4F Code(s): E03.9 - HYPOTHYROIDISM, UNSPECIFIED (6) Prophylactic measure Assessment/Plan: OOB to chair start SC heparin BID Code(s): Z29.9 - ENCOUNTER FOR PROPHYLACTIC MEASURES, UNSPECIFIED Visit type - Emergency Visit Emergency Visit: Yes ED Registration Date: 10/04/18 Care time: The patient presented to the Emergency Department on the above date and was hospitalized for further evaluation of their emergent condition. - New Patient This patient is new to me today: Yes Date on this admission: 10/05/18 - Critical Care Critical Care patient: No
[2018-10-05 18:19] LABS: AMYLASE 32 U/L (25-115)
[2018-10-05 20:03] LABS: LIPASE 50 U/L (73-393)
[2018-10-05] MEDS: HEPARIN NA (PORCINE) 5,000 UNITS/ML 1ML VIAL SQ SCH (21:28)
[2018-10-05] MEDS ORDERED: HEPARIN NA (PORCINE) 5,000 UNITS/ML 1ML VIAL SQ SCH (22:00)
[2018-10-06] MEDS ORDERED: PT OWN MED DRAWER 7, Y5N ONE (05:48)
[2018-10-06] MEDS: HEPARIN NA (PORCINE) 5,000 UNITS/ML 1ML VIAL SQ SCH ×3 (06:01→21:26)
[2018-10-06] MEDS ORDERED: LEVOTHYROXINE SODIUM 100 MCG VIAL IVPUSH SCH ×2 (07:00→10:00)
[2018-10-06 07:47] LABS: HEMATOCRIT 37.2 % (35.4-49); HEMOGLOBIN 12.3 GM/dl (11.7-16.9); MCH 31.6 pg (25.7-33.7); MEAN CELL VOLUME 95.7 fl (80-96); MEAN PLT VOLUME 8.1 fl (7.5-11.1); PLATELET COUNT 152 K/MM3 (134-434); RBC 3.88 M/mm3 (4.00-5.60); RDW 12.3 % (11.9-15.9); WHITE BLOOD COUNT 6.9 K/mm3 (4.0-10.8)
[2018-10-06 08:16] LABS: ALBUMIN 3.4 g/dl (3.4-5.0); BILIRUBIN,TOTAL 0.9 mg/dl (0.2-1); CALCIUM 8.2 mg/dl (8.5-10); CREATININE 0.9 mg/dl (0.55-1.3); MAGNESIUM 1.8 mg/dL (1.8-2.4); PHOSPHOROUS 1.9 mg/dl (2.5-4.9); POTASSIUM 4.2 mmol/L (3.5-5.1); TOT PROT 6.8 g/dl (6.4-8.2)
[2018-10-06 08:20] LABS: CHOLESTEROL 122 mg/dl (50-200); HDL CHOLESTEROL 34 mg/dl (40-60); LDL CHOLESTEROL (ONLY DFH) 69 mg/dl (5-100); TRIGLYCERIDES 95 mg/dl (0-150)
[2018-10-06 09:28] LABS: INR 1.29 (0.82-1.09); PROTHROMBIN TIME (PATIENT) 14.4 SEC (10.2-13.0)
[2018-10-06] MEDS ORDERED: MAGNESIUM SULF 50% (8.12 MEQ/2 ML-1 GM VIAL) IVPB ONE (09:52)
[2018-10-06] MEDS ORDERED: LACTATED RINGERS SOLUTION 1,000 ML/1,000 ML INFUS.BAG IV SCH ×2 (10:00→15:16)
[2018-10-06] MEDS ORDERED: MAGNESIUM 1GM/D5W - 1 GM/100 ML IVPB IVPB ONE (10:00)
[2018-10-06] MEDS ORDERED: PANTOPRAZOLE SODIUM 40 MG VIAL IVPUSH SCH (10:00)
[2018-10-06] MEDS ORDERED: SODIUM PHOSPHATE - 22 MM in SODIUM CHLORIDE 250 ML IVPB ONE (10:30)
--- NOTE | 2018-10-06 10:56 | PN ---
Progress Note, Physician History of Present Illness: Pt with SBO vs ileus vs gastroenteritis - NPO with NGT/IVF. Tube with ~400ml clear output since yesterday. AXR this morning still shows distended loops with some air-fluid levels, also air in colon, possible small amount of contrast over sacrum?. Pt seen and examined in bed. He states he has no more pain, and feels his belly is less bloated, softer. He has had more loose/liquid BMs. Per staff, he did ambulate this morning. Family not present at this time. - Current Medication List Current Medications: Active Medications Aspirin (Asa -) 81 mg PO DAILY [facility] Last Admin: 10/05/18 09:30 Dose: 81 mg Cholecalciferol (Vitamin D3 -) 2,000 unit PO DAILY [facility] Last Admin: 10/05/18 09:30 Dose: 2,000 unit Clonazepam (Klonopin -) 0.5 mg PO DAILY [facility] Last Admin: 10/05/18 09:30 Dose: 0.5 mg Cyanocobalamin (Vitamin B12 -) 1,000 mcg PO DAILY [facility] Last Admin: 10/05/18 09:30 Dose: 1,000 mcg Donepezil HCl (Aricept -) 5 mg PO HS [facility] Heparin Sodium (Porcine) (Heparin -) 5,000 unit SQ TID [facility] Last Admin: 10/06/18 06:01 Dose: 5,000 unit Sodium Phosphate 22 mm/ Sodium (Chloride) 257.3333 mls @ 62.5 mls/hr IVPB ONCE ONE Stop: 10/06/18 14:37 Last Admin: 10/06/18 10:29 Dose: 62.5 mls/hr Magnesium Sulfate/Dextrose (Magnesium 1gm/D5w -) 1 gm in 100 mls @ 100 mls/hr IVPB ONCE ONE Stop: 10/06/18 10:59 Last Admin: 10/06/18 10:25 Dose: 100 mls/hr Lactated Ringer's (Lactated Ringers Solution) 1,000 ml in 1,000 mls @ 100 mls/ hr IV ASDIR [facility] Last Admin: 10/06/18 10:26 Dose: 100 mls/hr Levothyroxine Sodium (Synthroid Injection -) 25 mcg IVPUSH DAILY@0700 [facility] Last Admin: 10/06/18 07:50 Dose: 25 mcg Metoprolol Succinate (Toprol Xl -) 25 mg PO DAILY [facility] Last Admin: 10/05/18 09:30 Dose: 25 mg Metoprolol Tartrate (Lopressor Injection -) 2.5 mg IVPUSH Q12H PRN PRN Reason: HYPERTENSION Olanzapine (Zyprexa -) 5 mg PO HS [facility] Olanzapine (Zyprexa -) 7.5 mg PO AM [facility] Pantoprazole Sodium (Protonix -) 20 mg PO DAILY [facility] Last Admin: 10/05/18 09:30 Dose: 20 mg Pantoprazole Sodium (Protonix Iv) 40 mg IVPUSH DAILY [facility] Last Admin: 10/06/18 09:17 Dose: 40 mg - Objective Vital Signs: Vital Signs Temperature 98.8 F 10/06/18 05:00 Pulse Rate 73 10/06/18 05:00 Respiratory Rate 18 10/06/18 08:49 Blood Pressure 160/99 10/06/18 05:00 O2 Sat by Pulse Oximetry (%) 95 10/06/18 08:49 Constitutional: Yes: Well Nourished, No Distress, Calm Eyes: Yes: Conjunctiva Clear, EOM Intact HENT: Yes: Atraumatic, Normocephalic, Other (NG tube - loose at nasal hobbs - repositioned and resecured about 60cm at nares with clear output and good sumping) Gastrointestinal: Yes: Normal Bowel Sounds, Soft, Distention (less distended, but still with tympany, soft). No: Tenderness, Tenderness, Epigastrium Extremities: No: Cool, Cyanosis Integumentary: No: Jaundice, Rash Neurological: Yes: Alert, Oriented, Other (mildly delayed response time, flat affect) Labs: CBC, BMP 10/06/18 07:00 10/06/18 07:00 INR, PTT INR 1.29 (0.82-1.09) H 10/06/18 07:00 CMP Sodium 135 mmol/L (136-145) L 10/06/18 07:00 Potassium 4.2 mmol/L (3.5-5.1) 10/06/18 07:00 Chloride 101 mmol/L (98-107) 10/06/18 07:00 Carbon Dioxide 24 mmol/L (21-32) 10/06/18 07:00 Anion Gap 10 MMOL/L (8-16) 10/06/18 07:00 BUN 12.0 mg/dl (7-18) 10/06/18 07:00 Creatinine 0.9 mg/dl (0.55-1.3) 10/06/18 07:00 Est GFR (CKD-EPI)AfAm 102.07 10/06/18 07:00 Est GFR (CKD-EPI)NonAf 88.07 10/06/18 07:00 POC Glucometer 86 UNITS (80-120) 10/06/18 06:49 Random Glucose 92 mg/dl (74-106) 10/06/18 07:00 Lactic Acid 1.4 mmol/L (0.4-2.0) 10/04/18 18:54 Calcium 8.2 mg/dl (8.5-10) L 10/06/18 07:00 Phosphorus 1.9 mg/dl (2.5-4.9) L 10/06/18 07:00 Magnesium 1.8 mg/dL (1.8-2.4) 10/06/18 07:00 Total Bilirubin 0.9 mg/dl (0.2-1) 10/06/18 07:00 AST 14 U/L (15-37) L 10/06/18 07:00 ALT 8 U/L (13-61) L 10/06/18 07:00 Alkaline Phosphatase 57 U/L (45-117) 10/06/18 07:00 Total Protein 6.8 g/dl (6.4-8.2) 10/06/18 07:00 Albumin 3.4 g/dl (3.4-5.0) 10/06/18 07:00 Triglycerides 95 mg/dl (0-150) 10/06/18 07:00 Cholesterol 122 mg/dl (50-200) 10/06/18 07:00 Total LDL Cholesterol 69 mg/dl (5-100) 10/06/18 07:00 HDL Cholesterol 34 mg/dl (40-60) L 10/06/18 07:00 Total Amylase 32 U/L (25-115) 10/05/18 07:00 Lipase 50 U/L (73-393) L 10/05/18 07:00 Free T4 [place] Cancelled 10/06/18 07:00 renal function normal phos low A1C pending - ....Imaging X-ray: Report Reviewed, Image Reviewed (images reviewed - see hpi) Problem List - Problems (1) Small bowel obstruction Assessment/Plan: pt with unclear ileus vs gastroenteritis vs SBO in virgin abdomen h/o possible/partial SBO's treated conservatively nontender with no pain now decreased distention but still with some gas/tympany + bowel function with more liquid BMs continue NPO - strict, with IVF and NGT to LCWS NG resecured will repeat CT with IV contrast (no more po) if no contrast or residual only in distal colon, will d/c NGT and start clears if still contrast in SB, will reassess pending CT findings OOB to chair, may ambulate with NG temporarily clamped GI/DVT prophylaxis discussed with Royal Umaña NP Code(s): K56.609 - UNSP INTESTNL OBST, UNSP TO PARTIAL VERSUS COMPLETE OBST (2) Epigastric abdominal pain Assessment/Plan: resolved Code(s): R10.13 - EPIGASTRIC PAIN (3) Nausea and vomiting Assessment/Plan: resolved Code(s): R11.2 - NAUSEA WITH VOMITING, UNSPECIFIED (4) Abdominal distention Assessment/Plan: improving Code(s): R14.0 - ABDOMINAL DISTENSION (GASEOUS) (5) Hypothyroidism Code(s): E03.9 - HYPOTHYROIDISM, UNSPECIFIED (6) HTN (hypertension) Code(s): I10 - ESSENTIAL (PRIMARY) HYPERTENSION Qualifiers: Hypertension type: essential hypertension Qualified Code(s): I10 - Essential (primary) hypertension (7) Schizoaffective disorder Code(s): F25.9 - SCHIZOAFFECTIVE DISORDER, UNSPECIFIED Qualifiers: Schizoaffective disorder type: unspecified Qualified Code(s): F25.9 - Schizoaffective disorder, unspecified
--- NOTE | 2018-10-06 14:54 | PN ---
Progress Note, Physician History of Present Illness: 24 HR events -repeat CT scan done this morning - reads as distal SBO without clear transition Zone -NGT remains to Low wall suction, GT advanced by 10cm from 60 to 70cm due to tip overlying the stomach -OOB and ambulating around unit this morning - Current Medication List Current Medications: Active Medications Aspirin (Asa -) 81 mg PO DAILY [facility] Last Admin: 10/05/18 09:30 Dose: 81 mg Cholecalciferol (Vitamin D3 -) 2,000 unit PO DAILY [facility] Last Admin: 10/05/18 09:30 Dose: 2,000 unit Clonazepam (Klonopin -) 0.5 mg PO DAILY [facility] Last Admin: 10/05/18 09:30 Dose: 0.5 mg Cyanocobalamin (Vitamin B12 -) 1,000 mcg PO DAILY [facility] Last Admin: 10/05/18 09:30 Dose: 1,000 mcg Donepezil HCl (Aricept -) 5 mg PO HS [facility] Heparin Sodium (Porcine) (Heparin -) 5,000 unit SQ TID [facility] Last Admin: 10/06/18 14:04 Dose: 5,000 unit Lactated Ringer's (Lactated Ringers Solution) 1,000 ml in 1,000 mls @ 100 mls/ hr IV ASDIR [facility] Last Admin: 10/06/18 10:26 Dose: 100 mls/hr Levothyroxine Sodium (Synthroid Injection -) 25 mcg IVPUSH DAILY@0700 [facility] Last Admin: 10/06/18 07:50 Dose: 25 mcg Metoprolol Succinate (Toprol Xl -) 25 mg PO DAILY [facility] Last Admin: 10/05/18 09:30 Dose: 25 mg Metoprolol Tartrate (Lopressor Injection -) 2.5 mg IVPUSH Q12H PRN PRN Reason: HYPERTENSION Olanzapine (Zyprexa -) 5 mg PO HS [facility] Olanzapine (Zyprexa -) 7.5 mg PO AM [facility] Pantoprazole Sodium (Protonix -) 20 mg PO DAILY [facility] Last Admin: 10/05/18 09:30 Dose: 20 mg Pantoprazole Sodium (Protonix Iv) 40 mg IVPUSH DAILY [facility] Last Admin: 10/06/18 09:17 Dose: 40 mg - Objective Vital Signs: Vital Signs Temperature 98.8 F 10/06/18 05:00 Pulse Rate 69 10/06/18 12:26 Respiratory Rate 18 10/06/18 12:26 Blood Pressure 161/92 10/06/18 12:26 O2 Sat by Pulse Oximetry (%) 95 10/06/18 12:26 Constitutional: Yes: No Distress, Calm Eyes: Yes: Conjunctiva Clear HENT: Yes: Atraumatic, Normocephalic Neck: Yes: Supple, Trachea Midline Cardiovascular: Yes: Regular Rate and Rhythm Respiratory: Yes: Regular, CTA Bilaterally Gastrointestinal: Yes: Normal Bowel Sounds, Soft, Distention ...Rectal Exam: Yes: Deferred Genitourinary: Yes: WNL Breast(s): Yes: WNL Musculoskeletal: Yes: WNL Extremities: Yes: WNL Edema: No Peripheral Pulses WNL: Yes Peripheral Pulses: Left Radial: 2+, Right Radial: 2+, Left Doralis Pedis: 2+, Right Dorsalis Pedis: 2+ Integumentary: Yes: WNL Neurological: Yes: Alert, Oriented ...Motor Strength: WNL Psychiatric: Yes: Alert, Oriented Labs: CBC, BMP 10/06/18 07:00 10/06/18 07:00 INR, PTT INR 1.29 (0.82-1.09) H 10/06/18 07:00 - ....Imaging X-ray: Report Reviewed (Abd x-ray 10/06/2018 [id number] RAD/ABDOMEN FLAT UPRIGHT Abdomen: Check contrast passage from CT scan 3 views of the abdomen reveal abdominal distention, NG tube with tip in stomach and some questionable contrast projected over the sacrum in a rounded bowel loop. There is not seen. Is no sign of organomegaly or calcifications of significance. The questionable contrast projected over the sacrum is new since 10/05/2018. Correlation recommended.) Cat Scan: Report Reviewed (IMPRESSION: See discussion above Findings again compatible with distal small bowel obstruction with the point of transition unclear on this exam. No free air or free fluid in the abdomen. Reported By: Guera Yu MD 10/06/18 1423) Problem List - Problems (1) HTN (hypertension) Assessment/Plan: BP uncontrolled, increase metoprolol to 5mg IVP (monitor HR closely) monitor on tele Code(s): I10 - ESSENTIAL (PRIMARY) HYPERTENSION Qualifiers: Hypertension type: essential hypertension Qualified Code(s): I10 - Essential (primary) hypertension (2) Partial small bowel obstruction Assessment/Plan: GI and general surgery following NGT to low wall suction Code(s): K56.600 - PARTIAL INTESTINAL OBSTRUCTION, UNSPECIFIED TO CAUSE (3) Schizoaffective disorder Assessment/Plan: restart zyprexa, aricept and Klonopin once he is able to take orals Code(s): F25.9 - SCHIZOAFFECTIVE DISORDER, UNSPECIFIED Qualifiers: Schizoaffective disorder type: unspecified Qualified Code(s): F25.9 - Schizoaffective disorder, unspecified (4) GERD (gastroesophageal reflux disease) Assessment/Plan: protonix daily IV Code(s): K21.9 - GASTRO-ESOPHAGEAL REFLUX DISEASE WITHOUT ESOPHAGITIS (5) Hypothyroidism Assessment/Plan: synthroid 25mcg daily TSH stable Code(s): E03.9 - HYPOTHYROIDISM, UNSPECIFIED (6) Prophylactic measure Assessment/Plan: OOB to chair start SC heparin BID Code(s): Z29.9 - ENCOUNTER FOR PROPHYLACTIC MEASURES, UNSPECIFIED Impression/Plan Impression/Plan: Code status: Full Visit type - Emergency Visit Emergency Visit: Yes ED Registration Date: 10/04/18 Care time: The patient presented to the Emergency Department on the above date and was hospitalized for further evaluation of their emergent condition. - New Patient This patient is new to me today: No - Critical Care Critical Care patient: No - Discharge Referral Referred to [facility] Med P.C.: No
[2018-10-06] MEDS ORDERED: METOPROLOL TARTRATE 5 MG/5 ML VIAL IVPUSH SCH (15:15)
[2018-10-06] MEDS: DONEPEZIL HCL 5 MG TABLET (FP) PO SCH (21:25)
[2018-10-06] MEDS: OLANZapine 5 MG TABLET PO SCH (21:25)
[2018-10-06] MEDS ORDERED: METOPROLOL TARTRATE 5 MG/5 ML VIAL IVPUSH PRN (22:00)
[2018-10-07] MEDS ORDERED: PT OWN MED DRAWER 7, Y5N ONE (06:42)
[2018-10-07] MEDS: LEVOTHYROXINE NA 50 MCG TABLET (FP) PO SCH (07:20)
[2018-10-07] MEDS: HEPARIN NA (PORCINE) 5,000 UNITS/ML 1ML VIAL SQ SCH ×3 (07:20→21:13)
[2018-10-07 07:44] LABS: HEMATOCRIT 35.7 % (35.4-49); HEMOGLOBIN 12.1 GM/dl (11.7-16.9); MCHC 33.9 g/dl (32.0-35.9); MEAN CELL VOLUME 94.5 fl (80-96); MEAN PLT VOLUME 7.6 fl (7.5-11.1); PLATELET COUNT 155 K/MM3 (134-434); RBC 3.78 M/mm3 (4.00-5.60); RDW 12.1 % (11.9-15.9); WHITE BLOOD COUNT 5.7 K/mm3 (4.0-10.8)
[2018-10-07] MEDS: OLANZapine 7.5 MG TABLET PO SCH (07:59)
[2018-10-07 08:13] LABS: ALBUMIN 3.3 g/dl (3.4-5.0); BILIRUBIN,TOTAL 0.8 mg/dl (0.2-1); CALCIUM 8.3 mg/dl (8.5-10); CREATININE 0.8 mg/dl (0.55-1.3); MAGNESIUM 1.8 mg/dL (1.8-2.4); PHOSPHOROUS 3.1 mg/dl (2.5-4.9); POTASSIUM 4.3 mmol/L (3.5-5.1); TOT PROT 6.5 g/dl (6.4-8.2)
--- NOTE | 2018-10-07 09:21 | PN ---
Progress Note (short form) - Note Progress Note: Patient appears comfortable; tolerating clear liquid diet. Having BMs and abdomen less distended and patient denies tenderness/cramps. Repeat CT (10/06) with ?SBO but clinically there does not appear to be bowel obstruction at this time VSS Afebrile Abdomen softer, nontender +BS CBC,lytes reviewed ?resolved SBO vs ileus Suggest gradual advancement of diet and clinical followup Discharge when stable
--- NOTE | 2018-10-07 09:42 | PN ---
Physical Exam: SUBJECTIVE: Patient seen and examined, tolerating clears, denies pain, reports belching and passing gas d/w GI and Surgery, adv diet, to dinner tonight, can DC tomorrow, oupt GI follow up OBJECTIVE: Vital Signs Period Temp Pulse Resp BP Sys/Rocha Pulse Ox Last 24 Hr 98.3 F-98.7 F 66-74 17-19 149-163/85-101 90-95 GENERAL: The patient is awake, alert, and fully oriented, in no acute distress. HEAD: Normal with no signs of trauma. EYES: PERRL, extraocular movements intact, sclera anicteric, conjunctiva clear. No ptosis. ENT: Ears normal, nares patent, oropharynx clear without exudates, moist mucous membranes. NECK: Trachea midline, full range of motion, supple. LUNGS: Breath sounds equal, clear to auscultation bilaterally, no wheezes, no crackles, no accessory muscle use. HEART: Regular rate and rhythm, S1, S2 without murmur, rub or gallop. ABDOMEN: Soft, nontender, nondistended, normoactive bowel sounds, no guarding, no rebound, no hepatosplenomegaly, no masses. EXTREMITIES: 2+ pulses, warm, well-perfused, no edema. NEUROLOGICAL: Cranial nerves II through XII grossly intact. Normal speech, gait not observed. PSYCH: Normal mood, normal affect. SKIN: Warm, dry, normal turgor, no rashes or lesions noted Laboratory Results - last 24 hr 10/06/18 10/06/18 10/06/18 06:55 07:00 07:00 WBC RBC Hgb Hct MCV MCH MCHC RDW Plt Count MPV Sodium 135 L Potassium 4.2 Chloride 101 Carbon Dioxide 24 Anion Gap 10 BUN 12.0 Creatinine 0.9 Est GFR (CKD-EPI)AfAm 102.07 Est GFR (CKD-EPI)NonAf 88.07 POC Glucometer Random Glucose 92 Hemoglobin A1c % Calcium 8.2 L Phosphorus 1.9 L Magnesium 1.8 Total Bilirubin 0.9 AST 14 L ALT 8 L Alkaline Phosphatase 57 Total Protein 6.8 Albumin 3.4 Free T4 Cancelled TSH 1.15 Free T4 1.30 H 1.27 H 10/06/18 10/06/18 10/06/18 07:00 11:25 16:30 WBC RBC Hgb Hct MCV MCH MCHC RDW Plt Count MPV Sodium Potassium Chloride Carbon Dioxide Anion Gap BUN Creatinine Est GFR (CKD-EPI)AfAm Est GFR (CKD-EPI)NonAf POC Glucometer 103 96 Random Glucose Hemoglobin A1c % 5.7 Calcium Phosphorus Magnesium Total Bilirubin AST ALT Alkaline Phosphatase Total Protein Albumin Free T4 TSH Free T4 10/07/18 10/07/18 10/07/18 07:04 07:20 07:20 WBC 5.7 RBC 3.78 L Hgb 12.1 Hct 35.7 MCV 94.5 MCH 32.0 MCHC 33.9 RDW 12.1 Plt Count 155 MPV 7.6 Sodium 134 L Potassium 4.3 Chloride 102 Carbon Dioxide 25 Anion Gap 7 L BUN 12.0 Creatinine 0.8 Est GFR (CKD-EPI)AfAm 106.38 Est GFR (CKD-EPI)NonAf 91.79 POC Glucometer 80 Random Glucose 79 Hemoglobin A1c % Calcium 8.3 L Phosphorus 3.1 Magnesium 1.8 Total Bilirubin 0.8 AST 14 L ALT 9 L Alkaline Phosphatase 55 Total Protein 6.5 Albumin 3.3 L Free T4 [place] TSH Free T4 Active Medications Generic Name Dose Route Start Last Admin Trade Name Freq PRN Reason Stop Dose Admin Aspirin 81 mg 10/05/18 10:00 10/05/18 09:30 Asa - PO 81 mg DAILY MARIA TERESA Administration Cholecalciferol 2,000 unit 10/05/18 10:00 10/05/18 09:30 Vitamin D3 - PO 2,000 unit DAILY MARIA TERESA Administration Clonazepam 0.5 mg 10/05/18 10:00 10/05/18 09:30 Klonopin - PO 0.5 mg DAILY MARIA TERESA Administration Cyanocobalamin 1,000 mcg 10/05/18 10:00 10/05/18 09:30 Vitamin B12 - PO 1,000 mcg DAILY MARIA TERESA Administration Donepezil HCl 5 mg 10/05/18 22:00 10/06/18 21:25 Aricept - PO 5 mg HS MARIA TERESA Administration Heparin Sodium (Porcine) 5,000 unit 10/05/18 22:00 10/07/18 07:20 Heparin - SQ 5,000 unit TID MARIA TERESA Administration Lactated Ringer's 1,000 ml in 1,000 mls @ 75 mls/hr 10/06/18 15:16 10/06/18 15:51 Lactated Ringers Solution IV 75 mls/hr ASDIR MARIA TERESA Administration Levothyroxine Sodium 50 mcg 10/07/18 07:00 10/07/18 07:20 Synthroid - PO 50 mcg DAILY@0700 MARIA TERESA Administration Metoprolol Succinate 25 mg 10/05/18 10:00 10/05/18 09:30 Toprol Xl - PO 25 mg DAILY MARIA TERESA Administration Olanzapine 5 mg 10/05/18 22:00 10/06/18 21:25 Zyprexa - PO 5 mg HS MARIA TERESA Administration Olanzapine 7.5 mg 10/06/18 07:00 10/07/18 07:59 Zyprexa - PO 7.5 mg AM MARIA TERESA Administration Pantoprazole Sodium 20 mg 10/05/18 10:00 10/05/18 09:30 Protonix - PO 20 mg DAILY MARIA TERESA Administration ASSESSMENT/PLAN: - Problems (1) HTN (hypertension) Assessment/Plan: BP improved switched back to home meds monitor on tele Code(s): I10 - ESSENTIAL (PRIMARY) HYPERTENSION Qualifiers: Hypertension type: essential hypertension Qualified Code(s): I10 - Essential (primary) hypertension (2) Partial small bowel obstruction Assessment/Plan: GI and general surgery following NGT removed yesterday diet adv to full liquid, reg diet for dinner Code(s): K56.600 - PARTIAL INTESTINAL OBSTRUCTION, UNSPECIFIED TO CAUSE (3) Schizoaffective disorder Assessment/Plan: restart zyprexa, aricept and Klonopin once he is able to take orals Code(s): F25.9 - SCHIZOAFFECTIVE DISORDER, UNSPECIFIED Qualifiers: Schizoaffective disorder type: unspecified Qualified Code(s): F25.9 - Schizoaffective disorder, unspecified (4) GERD (gastroesophageal reflux disease) Assessment/Plan: protonix daily po Code(s): K21.9 - GASTRO-ESOPHAGEAL REFLUX DISEASE WITHOUT ESOPHAGITIS (5) Hypothyroidism Assessment/Plan: Synthroid PO 50mcg daily TSH stable Code(s): E03.9 - HYPOTHYROIDISM, UNSPECIFIED (6) Prophylactic measure Assessment/Plan: OOB to chair start SC heparin BID Code(s): Z29.9 - ENCOUNTER FOR PROPHYLACTIC MEASURES, UNSPECIFIED Visit type - Emergency Visit Emergency Visit: Yes ED Registration Date: 10/04/18 Care time: The patient presented to the Emergency Department on the above date and was hospitalized for further evaluation of their emergent condition. - New Patient This patient is new to me today: Yes Date on this admission: 10/07/18 - Critical Care Critical Care patient: No
--- NOTE | 2018-10-07 10:18 | PN ---
Progress Note, Physician - Current Medication List Current Medications: Active Medications Aspirin (Asa -) 81 mg PO DAILY [facility] Last Admin: 10/05/18 09:30 Dose: 81 mg Cholecalciferol (Vitamin D3 -) 2,000 unit PO DAILY [facility] Last Admin: 10/05/18 09:30 Dose: 2,000 unit Clonazepam (Klonopin -) 0.5 mg PO DAILY [facility] Last Admin: 10/05/18 09:30 Dose: 0.5 mg Cyanocobalamin (Vitamin B12 -) 1,000 mcg PO DAILY [facility] Last Admin: 10/05/18 09:30 Dose: 1,000 mcg Donepezil HCl (Aricept -) 5 mg PO HS [facility] Last Admin: 10/06/18 21:25 Dose: 5 mg Heparin Sodium (Porcine) (Heparin -) 5,000 unit SQ TID [facility] Last Admin: 10/07/18 07:20 Dose: 5,000 unit Levothyroxine Sodium (Synthroid -) 50 mcg PO DAILY@0700 [facility] Last Admin: 10/07/18 07:20 Dose: 50 mcg Metoprolol Succinate (Toprol Xl -) 25 mg PO DAILY [facility] Last Admin: 10/05/18 09:30 Dose: 25 mg Olanzapine (Zyprexa -) 5 mg PO HS [facility] Last Admin: 10/06/18 21:25 Dose: 5 mg Olanzapine (Zyprexa -) 7.5 mg PO AM [facility] Last Admin: 10/07/18 07:59 Dose: 7.5 mg Pantoprazole Sodium (Protonix -) 20 mg PO DAILY [facility] Last Admin: 10/05/18 09:30 Dose: 20 mg - Objective Vital Signs: Vital Signs Temperature 98.5 F 10/07/18 04:00 Pulse Rate 71 10/07/18 04:00 Respiratory Rate 18 10/07/18 04:00 Blood Pressure 149/85 10/07/18 04:00 O2 Sat by Pulse Oximetry (%) 93 L 10/07/18 04:00 Labs: CBC, BMP 10/07/18 07:20 10/07/18 07:20 INR, PTT INR 1.29 (0.82-1.09) H 10/06/18 07:00 Problem List - Problems (1) Small bowel obstruction Code(s): K56.609 - UNSP INTESTNL OBST, UNSP TO PARTIAL VERSUS COMPLETE OBST (2) Epigastric abdominal pain Code(s): R10.13 - EPIGASTRIC PAIN (3) Nausea and vomiting Code(s): R11.2 - NAUSEA WITH VOMITING, UNSPECIFIED (4) Abdominal distention Code(s): R14.0 - ABDOMINAL DISTENSION (GASEOUS) (5) Hypothyroidism Code(s): E03.9 - HYPOTHYROIDISM, UNSPECIFIED (6) HTN (hypertension) Code(s): I10 - ESSENTIAL (PRIMARY) HYPERTENSION Qualifiers: Hypertension type: essential hypertension Qualified Code(s): I10 - Essential (primary) hypertension (7) Schizoaffective disorder Code(s): F25.9 - SCHIZOAFFECTIVE DISORDER, UNSPECIFIED Qualifiers: Schizoaffective disorder type: unspecified Qualified Code(s): F25.9 - Schizoaffective disorder, unspecified
[2018-10-07] MEDS: CHOLECALCIFEROL (VIT D3) 1,000 UNIT (25 MCG) TABLET PO SCH (10:23)
[2018-10-07] MEDS: metoPROLOL SUCCINATE 25 MG TAB.SR.24H (FP) PO SCH (10:23)
[2018-10-07] MEDS: PANTOPRAZOLE 20 MG TABLET (FP) PO SCH (10:23)
[2018-10-07] MEDS: CYANOCOBALAMIN 1,000 MCG TABLET (FP) PO SCH (10:23)
[2018-10-07] MEDS: clonazePAM 0.5 MG TABLET PO SCH (10:23)
[2018-10-07] MEDS: DONEPEZIL HCL 5 MG TABLET (FP) PO SCH (21:13)
[2018-10-07] MEDS: OLANZapine 5 MG TABLET PO SCH (21:13)
[2018-10-08] MEDS: LEVOTHYROXINE NA 50 MCG TABLET (FP) PO SCH (06:17)
[2018-10-08] MEDS: HEPARIN NA (PORCINE) 5,000 UNITS/ML 1ML VIAL SQ SCH (06:17)
[2018-10-08] MEDS: OLANZapine 7.5 MG TABLET PO SCH (06:17)
[2018-10-08 06:29] VITALS: BP 136/83; PULSE 55; TEMP 98
[2018-10-08 08:00] LABS: BASO % 0.4 % (0-2.0); EOS % 4.4 % (0-4.5); HEMATOCRIT 34.7 % (35.4-49); HEMOGLOBIN 11.8 GM/dl (11.7-16.9); LYMPH % 25.1 % (8-40); MCH 32.1 pg (25.7-33.7); MEAN CELL VOLUME 94.7 fl (80-96); MEAN PLT VOLUME 7.9 fl (7.5-11.1); MONO % 11.7 % (3.8-10.2); NEUT % 58.4 % (42.8-82.8); PLATELET COUNT 160 K/MM3 (134-434); RBC 3.67 M/mm3 (4.00-5.60); RDW 12.2 % (11.9-15.9)
[2018-10-08 08:21] LABS: ALBUMIN 3.2 g/dl (3.4-5.0); BILIRUBIN,TOTAL 0.6 mg/dl (0.2-1); CALCIUM 8.5 mg/dl (8.5-10); CREATININE 0.9 mg/dl (0.55-1.3); TOT PROT 6.3 g/dl (6.4-8.2)
[2018-10-08] MEDS ORDERED: PT OWN MED DRAWER 7, Y5N ONE ×2 (09:07→09:17)
[2018-10-08] MEDS: clonazePAM 0.5 MG TABLET PO SCH (09:37)
[2018-10-08] MEDS: CYANOCOBALAMIN 1,000 MCG TABLET (FP) PO SCH (09:37)
[2018-10-08] MEDS: metoPROLOL SUCCINATE 25 MG TAB.SR.24H (FP) PO SCH (09:37)
[2018-10-08] MEDS: CHOLECALCIFEROL (VIT D3) 1,000 UNIT (25 MCG) TABLET PO SCH (09:37)
[2018-10-08] MEDS: PANTOPRAZOLE 20 MG TABLET (FP) PO SCH (09:37)
[2018-10-08] MEDS ORDERED: OLANZapine 7.5 MG TABLET PO ONE (09:52)
--- NOTE | 2018-10-08 10:44 | DS ---
Physical Exam: SUBJECTIVE: Patient seen and examined OBJECTIVE: Vital Signs Period Temp Pulse Resp BP Sys/Rocha Pulse Ox Last 24 Hr 97.6 F-98.5 F 55-63 16-18 115-157/62-93 93-96 PHYSICAL EXAM GENERAL: The patient is awake, alert, and fully oriented, in no acute distress. HEAD: Normal with no signs of trauma. EYES: PERRL, extraocular movements intact, sclera anicteric, conjunctiva clear. ENT: Ears normal, nares patent, oropharynx clear without exudates, moist mucous membranes. NECK: Trachea midline, full range of motion, supple. LUNGS: Breath sounds equal, clear to auscultation bilaterally, no wheezes, no crackles, no accessory muscle use. HEART: Regular rate and rhythm, S1, S2 without murmur, rub or gallop. ABDOMEN: Soft, nontender, nondistended, normoactive bowel sounds, no guarding, no rebound, no hepatosplenomegaly, no masses. EXTREMITIES: 2+ pulses, warm, well-perfused, no edema. NEUROLOGICAL: Cranial nerves II through XII grossly intact. Normal speech, gait not observed. PSYCH: Normal mood, normal affect. SKIN: Warm, dry, normal turgor, no rashes or lesions noted. LABS Laboratory Results - last 24 hr 10/07/18 10/07/18 10/08/18 11:02 16:48 07:05 WBC 5.0 RBC 3.67 L Hgb 11.8 Hct 34.7 L MCV 94.7 MCH 32.1 MCHC 34.0 RDW 12.2 Plt Count 160 MPV 7.9 Absolute Neuts (auto) 2.9 Neutrophils % 58.4 Lymphocytes % 25.1 D Monocytes % 11.7 H Eosinophils % 4.4 D Basophils % 0.4 Sodium Potassium Chloride Carbon Dioxide Anion Gap BUN Creatinine Est GFR (CKD-EPI)AfAm Est GFR (CKD-EPI)NonAf POC Glucometer 88 74 Random Glucose Calcium Total Bilirubin AST ALT Alkaline Phosphatase Total Protein Albumin 10/08/18 07:05 WBC RBC Hgb Hct MCV MCH MCHC RDW Plt Count MPV Absolute Neuts (auto) Neutrophils % Lymphocytes % Monocytes % Eosinophils % Basophils % Sodium 135 L Potassium 4.0 Chloride 100 Carbon Dioxide 30 Anion Gap 5 L BUN 12.0 Creatinine 0.9 Est GFR (CKD-EPI)AfAm 101.36 Est GFR (CKD-EPI)NonAf 87.45 POC Glucometer Random Glucose 93 Calcium 8.5 Total Bilirubin 0.6 AST 14 L ALT 9 L Alkaline Phosphatase 53 Total Protein 6.3 L Albumin 3.2 L HOSPITAL COURSE: Date of Admission:10/04/18 Date of Discharge: 10/08/18 Discharge Summary Reason For Visit: ABDOMINAL BLOATING Current Active Problems Abdominal distention (Acute) Epigastric abdominal pain (Acute) GERD (gastroesophageal reflux disease) (Acute) Hypothyroidism (Acute) Nausea and vomiting (Acute) Prophylactic measure (Acute) Small bowel obstruction (Acute) Condition: Stable - Instructions - Home Medications Comprehensive Discharge Medication List: Ambulatory Orders Aspirin 81 mg PO DAILY 10/04/18 Cholecalciferol (Vitamin D3) [Vitamin D] 2,000 unit PO DAILY 10/04/18 Clonazepam 0.5 mg PO DAILY 10/04/18 Cyanocobalamin (Vitamin B-12) [Vitamin B-12] 1 tab SL DAILY 10/04/18 Donepezil HCl [Aricept] 5 mg PO DAILY 10/04/18 Levothyroxine [Synthroid -] 50 mcg PO DAILY 10/04/18 Metoprolol Succinate [Toprol Xl] 25 mg PO DAILY 10/04/18 Olanzapine [Zyprexa] 1 tab PO DAILY 10/04/18 Olanzapine [Zyprexa] 5 mg PO HS 10/04/18 Omeprazole Magnesium [Prilosec Otc] 20 mg PO DAILY 10/04/18 - Discharge Referral Referred to [facility] No
== END 2018-10-08 13:15 | disposition home or self-care (01) | DRG 389 ==
LOC: FER 18:17 → FM/S 23:32 → UNDOADMIN 23:39 → FM/S 23:39
PROVIDERS: ADMIT Internal Medicine; ATTEND Nurse Practitioner Acute Care
DX: K56.600 Partial intestinal obstruction, unspecified as to cause (principal); N17.9 Acute kidney failure, unspecified; I10 Essential (primary) hypertension; E78.5 Hyperlipidemia, unspecified; F25.9 Schizoaffective disorder, unspecified; F03.90 Unspecified dementia, unspecified severity, without behavioral disturbance, psychotic disturbance, mood disturbance, and anxiety; F32.9 Major depressive disorder, single episode, unspecified; K21.9 Gastro-esophageal reflux disease without esophagitis; E03.9 Hypothyroidism, unspecified; I95.1 Orthostatic hypotension; E53.8 Deficiency of other specified B group vitamins; R05 Cough; L80 Vitiligo
CPT/HCPCS: 36415; 71046-TC-FY; 74019-TC-FY; 74176-TC; 74177-TC; 80053; 80061; 81003; 81015; 82150; 82330; 82962; 83036; 83605; 83690; 83735; 84100; 84439; 84443; 85025; 85027; 85610; 86850; 86900; 86901; 93005; 97116-GP; 97161-GP; 99283-25; J1644; J7030

== ENCOUNTER 2020-05-11 06:32 | Emergency (ER) | payer OTHER ==
[2020-05-11 06:43] VITALS: BP 163/109; PULSE 54; TEMP 98; BMI 28.7
== END 2020-05-11 08:48 | disposition home or self-care (01) ==
LOC: FER 06:32
DX: R05 Cough (principal); T17.320A Food in larynx causing asphyxiation, initial encounter
CPT/HCPCS: 99282-25

== ENCOUNTER 2020-08-04 00:50 | Inpatient (IN) | payer OTHER ==
[2020-08-04] MEDS ORDERED: ACETAMINOPHEN 1000 MG/100 ML VIAL (NON FORMULARY) IVPB ONE ×2 (01:00→08:30)
[2020-08-04] MEDS ORDERED: FAMOTIDINE 20 MG/50 ML IVPB 20 MG/50 ML MG IVPB ONE ×2 (01:00→01:22)
[2020-08-04 01:06] VITALS: BMI 28.7
[2020-08-04] MEDS ORDERED: ACETAMINOPHEN INJECTION 100 ML IVPB ONE ×2 (01:23→08:32)
[2020-08-04 02:29] LABS: BASO % 0.2 % (0-2.0); EOS % 0.8 % (0-4.5); HEMATOCRIT 36.8 % (35.4-49); HEMOGLOBIN 12.7 GM/dL (11.7-16.9); LYMPH % 9.6 % (8-40); MCH 32.4 pg (25.7-33.7); MCHC 34.6 g/dl (32.0-35.9); MEAN CELL VOLUME 93.6 fl (80-96); MEAN PLT VOLUME 7.8 fl (7.5-11.1); MONO % 7.7 % (3.8-10.2); NEUT % 81.7 % (42.8-82.8); PLATELET COUNT 152 K/MM3 (134-434); RBC 3.93 M/mm3 (4.00-5.60); WHITE BLOOD COUNT 9.5 K/mm3 (4.0-10.0)
[2020-08-04 02:33] LABS: INR 1.03 (0.83-1.09); PROTHROMBIN TIME (PATIENT) 12.7 SEC (9.7-13.0)
[2020-08-04 02:36] LABS: ACTIVATED PTT 29.1 SECONDS (25.2-36.5)
[2020-08-04 02:46] LABS: CALCIUM 8.5 mg/dL (8.5-10.1); LIPASE 37 U/L (73-393); MAGNESIUM 1.5 mg/dL (1.8-2.4)
[2020-08-04 02:47] LABS: ALBUMIN 3.8 g/dl (3.4-5.0); BLOOD UREA NITROGEN 11.8 mg/dL (7-18); CO2 27 mmol/L (21-32); GLUCOSE,RANDOM 139 mg/dL (74-106)
[2020-08-04 02:49] LABS: SGOT/AST 18 U/L (15-37); SGPT/ALT 14 U/L (13-61)
[2020-08-04 02:50] LABS: PHOSPHOROUS 2.3 mg/dL (2.5-4.9)
[2020-08-04 02:51] LABS: TOT PROT 7.4 g/dl (6.4-8.2)
[2020-08-04 02:52] LABS: BILIRUBIN,TOTAL 0.3 mg/dL (0.2-1)
[2020-08-04 02:53] LABS: ALK PHOS 81 U/L (45-117)
[2020-08-04 03:02] LABS: LACTIC ACID 2.3 mmol/L (0.4-2.0)
[2020-08-04] MEDS ORDERED: SODIUM CHLORIDE 0.9% 500 ML INFUS.BAG IV ONE (03:16)
[2020-08-04 03:26] LABS: PH,URINE 7.5 (5.0-8.0); URINE APPEARANCE CLEAR; URINE BILIRUBIN NEGATIVE (NEGATIVE); URINE COLOR YELLOW; URINE GLUCOSE (UA) NEGATIVE (NEGATIVE); URINE KETONE NEGATIVE (NEGATIVE); URINE LEUK ESTERASE NEGATIVE (NEGATIVE); URINE NITRITE NEGATIVE (NEGATIVE); URINE PROTEIN NEGATIVE (NEGATIVE); URINE UROBILINOGEN 0.2 mg/dL (0.2-1.0)
[2020-08-04 03:33] LABS: EPI CELLS 2 /uL (0-25.1); HYALINE CASTS 0 /uL (0-3.1); URINE BACTERIA 10 /uL (0-1359); URINE RBC 12 /uL (0-23.9); URINE WBC 1 /uL (0-25.8)
[2020-08-04 03:46] LABS: ANION GAP 7 MMOL/L (8-16); CHLORIDE 104 mmol/L (98-107); SODIUM 138 mmol/L (136-145)
[2020-08-04] MEDS ORDERED: METOPROLOL TARTRATE 5 MG/5 ML VIAL IVPUSH ONE ×2 (05:20→06:10)
[2020-08-04] MEDS ORDERED: ONDANSETRON 4 MG/2 ML VIAL IVPUSH ONE (05:20)
[2020-08-04] MEDS ORDERED: LACTATED RINGERS SOLUTION 1,000 ML/1,000 ML INFUS.BAG IV SCH (05:30)
[2020-08-04] MEDS ORDERED: ONDANSETRON 4 MG/2 ML VIAL ONE (05:48)
[2020-08-04] MEDS ORDERED: METOPROLOL TARTRATE 5 MG/5 ML VIAL ONE ×2 (05:48→06:20)
[2020-08-04] MEDS ORDERED: PIPERACILLIN/TAZOB 4.5 GM 4.5 GM in DEXTROSE 5%-WATER 100 ML IVPB ONE (05:56)
[2020-08-04] MEDS ORDERED: PIPERACILLIN/TAZOBACTAM 4.5 GM VIAL IVPB ONE (06:01)
[2020-08-04] MEDS ORDERED: LOCK ITEM NR ONE (09:13)
[2020-08-04] MEDS ORDERED: ACETAMINOPHEN 1000 MG/100 ML VIAL (NON FORMULARY) IVPB PRN ×2 (10:17→13:49)
[2020-08-04] MEDS ORDERED: METOPROLOL TARTRATE 50 MG TABLET (FP) PO SCH (10:30)
[2020-08-04] MEDS ORDERED: D5-1/2NS+10 MEQ KCL - 10 MEQ/1,000 ML INFUS.BAG IV SCH ×2 (10:30→13:49)
[2020-08-04] MEDS ORDERED: oxyCODONE HCL 5 MG TABLET PO PRN ×2 (11:35→12:34)
[2020-08-04] MEDS ORDERED: MIDAZOLAM HCL 2 MG/2 ML SINGLE DOSE VIAL ONE (12:07)
[2020-08-04] MEDS ORDERED: SUCCINYLCHOLINE CHLORIDE 200 MG/10 ML SYRINGE ONE (12:12)
[2020-08-04] MEDS ORDERED: ROCURONIUM BROMIDE 50 MG/5 ML SYRINGE ONE (12:12)
[2020-08-04] MEDS ORDERED: PROPOFOL 20 ML ONE ×2 (12:12)
[2020-08-04] MEDS ORDERED: ONDANSETRON 4 MG/2 ML VIAL IVPUSH PRN (12:34)
[2020-08-04] MEDS ORDERED: morphine SULFATE 4 MG/ML VIAL IVPB PRN (12:34)
[2020-08-04] MEDS ORDERED: DEXAMETHASONE SOD PHOSPHATE 4 MG/1 ML VIAL ONE (12:46)
[2020-08-04] MEDS ORDERED: PIPERACILLIN/TAZOBACTAM 3.375 GM VIAL IVPB ONE ×3 (12:47→23:47)
[2020-08-04] MEDS ORDERED: GLYCOPYRROLATE 0.2 MG/1 ML VIAL ONE (13:17)
[2020-08-04] MEDS ORDERED: NEOSTIGMINE METHYLSULFATE 0.5 MG/1 ML - 10 ML MDV ONE (13:17)
[2020-08-04] MEDS ORDERED: DEXTROSE 5%-WATER - 50 ML IVPB ONE ×2 (17:52→23:47)
[2020-08-04] MEDS ORDERED: PIPERACILLIN/TAZOB 3.375 GM 3.375 GM in DEXTROSE 5%-WATER - 50 ML IVPB SCH (18:00)
[2020-08-04] MEDS: PIPERACILLIN/TAZOB 3.375 GM 3.375 GM in DEXTROSE 5%-WATER - 50 ML IVPB SCH (18:49)
[2020-08-04] MEDS: OLANZapine 5 MG TABLET PO SCH (21:13)
[2020-08-04] MEDS: LISINOPRIL 20 MG TABLET PO SCH (21:13)
[2020-08-05] MEDS: PIPERACILLIN/TAZOB 3.375 GM 3.375 GM in DEXTROSE 5%-WATER - 50 ML IVPB SCH ×3 (01:25→18:06)
[2020-08-05] MEDS: LEVOTHYROXINE NA 50 MCG TABLET (FP) GT SCH (06:20)
[2020-08-05 08:09] LABS: HEMATOCRIT 33.6 % (35.4-49); HEMOGLOBIN 11.3 GM/dl (11.7-16.9); MCH 32.1 pg (25.7-33.7); MCHC 33.7 g/dl (32.0-35.9); MEAN CELL VOLUME 95.2 fl (80-96); MEAN PLT VOLUME 7.9 fl (7.5-11.1); PLATELET COUNT 128 K/MM3 (134-434); RBC 3.53 M/mm3 (4.00-5.60); RDW 12.3 % (11.9-15.9); WHITE BLOOD COUNT 11.5 K/mm3 (4.0-10.8)
[2020-08-05 08:24] LABS: ALBUMIN 3.4 g/dl (3.4-5.0); CALCIUM 8.4 mg/dl (8.5-10); TOT PROT 6.3 g/dl (6.4-8.2)
[2020-08-05] MEDS: clonazePAM 0.5 MG TABLET PO SCH (09:00)
[2020-08-05] MEDS ORDERED: PIPERACILLIN/TAZOBACTAM 3.375 GM VIAL IVPB ONE ×2 (10:04→17:57)
[2020-08-05] MEDS ORDERED: DEXTROSE 5%-WATER - 50 ML IVPB ONE ×2 (10:04→17:57)
[2020-08-05] MEDS: DONEPEZIL HCL 5 MG TABLET (FP) PO SCH (10:43)
[2020-08-05] MEDS: LISINOPRIL 20 MG TABLET PO SCH (10:44)
[2020-08-05] MEDS: POTASSIUM CHLORIDE 10 MEQ in DEXTROSE 5%-NORMAL SALINE 1,000 ML IVPB SCH (10:44)
[2020-08-05] MEDS: ENOXAPARIN NA (PORCINE) 40 MG/0.4 ML DISP.SYRIN SQ SCH (10:44)
[2020-08-05] MEDS: METOPROLOL TARTRATE 50 MG TABLET (FP) PO SCH (10:44)
[2020-08-05] MEDS: PANTOPRAZOLE SODIUM 40 MG VIAL IVPUSH SCH (10:44)
[2020-08-05] MEDS: OLANZapine 5 MG TABLET PO SCH (21:09)
[2020-08-06] MEDS ORDERED: PIPERACILLIN/TAZOBACTAM 3.375 GM VIAL IVPB ONE ×2 (02:10→09:00)
[2020-08-06] MEDS ORDERED: DEXTROSE 5%-WATER - 50 ML IVPB ONE ×2 (02:11→09:00)
[2020-08-06] MEDS: PIPERACILLIN/TAZOB 3.375 GM 3.375 GM in DEXTROSE 5%-WATER - 50 ML IVPB SCH ×2 (02:45→09:05)
[2020-08-06] MEDS: LEVOTHYROXINE NA 50 MCG TABLET (FP) GT SCH (06:26)
[2020-08-06 08:38] LABS: BASO % 0.1 % (0-2.0); EOS % 3.7 % (0-4.5); HEMOGLOBIN 13.2 GM/dl (11.7-16.9); LYMPH % 19.6 % (8-40); MCHC 34.8 g/dl (32.0-35.9); MEAN PLT VOLUME 8.3 fl (7.5-11.1); MONO % 8.6 % (3.8-10.2); PLATELET COUNT 145 K/MM3 (134-434); RDW 12.6 % (11.9-15.9); WHITE BLOOD COUNT 7.2 K/mm3 (4.0-10.8)
[2020-08-06 08:46] LABS: ALBUMIN 3.7 g/dl (3.4-5.0); CALCIUM 8.3 mg/dl (8.5-10); CREATININE 1.1 mg/dl (0.55-1.3); MAGNESIUM 2.1 mg/dL (1.8-2.4); TOT PROT 7.1 g/dl (6.4-8.2)
[2020-08-06] MEDS: DONEPEZIL HCL 5 MG TABLET (FP) PO SCH (09:04)
[2020-08-06] MEDS: METOPROLOL TARTRATE 50 MG TABLET (FP) PO SCH (09:04)
[2020-08-06] MEDS: LISINOPRIL 20 MG TABLET PO SCH (09:04)
[2020-08-06] MEDS: clonazePAM 0.5 MG TABLET PO SCH (09:05)
[2020-08-06] MEDS: PANTOPRAZOLE SODIUM 40 MG VIAL IVPUSH SCH (09:05)
[2020-08-06] MEDS: ENOXAPARIN NA (PORCINE) 40 MG/0.4 ML DISP.SYRIN SQ SCH (09:05)
[2020-08-06] MEDS: POTASSIUM CHLORIDE 10 MEQ in DEXTROSE 5%-NORMAL SALINE 1,000 ML IVPB SCH (09:23)
[2020-08-06] MEDS: OLANZapine 5 MG TABLET PO SCH (22:01)
[2020-08-07] MEDS: LEVOTHYROXINE NA 50 MCG TABLET (FP) GT SCH (06:38)
[2020-08-07] MEDS: METOPROLOL TARTRATE 50 MG TABLET (FP) PO SCH ×2 (06:39→09:19)
[2020-08-07] MEDS ORDERED: AMOX TR/POT CLAV 875MG/125MG TABLETS (FP) PO SCH (08:15)
[2020-08-07] MEDS ORDERED: LISINOPRIL 20 MG TABLET PO ONE (08:15)
[2020-08-07 08:54] LABS: BASO % 0.6 % (0-2.0); EOS % 4.3 % (0-4.5); HEMOGLOBIN 12.5 GM/dl (11.7-16.9); LYMPH % 22.3 % (8-40); MCH 32.1 pg (25.7-33.7); MCHC 33.9 g/dl (32.0-35.9); MEAN CELL VOLUME 94.8 fl (80-96); MEAN PLT VOLUME 7.6 fl (7.5-11.1); MONO % 8.9 % (3.8-10.2); NEUT % 63.9 % (42.8-82.8); PLATELET COUNT 169 K/MM3 (134-434); RDW 12.2 % (11.9-15.9); WHITE BLOOD COUNT 5.5 K/mm3 (4.0-10.8)
[2020-08-07 09:09] LABS: ALBUMIN 3.6 g/dl (3.4-5.0); CALCIUM 8.7 mg/dl (8.5-10); CREATININE 0.9 mg/dl (0.55-1.3); MAGNESIUM 1.8 mg/dL (1.8-2.4); TOT PROT 6.9 g/dl (6.4-8.2)
[2020-08-07 09:21] VITALS: BP 154/93; PULSE 54; TEMP 98
[2020-08-07] MEDS: DONEPEZIL HCL 5 MG TABLET (FP) PO SCH (09:22)
[2020-08-07] MEDS: ENOXAPARIN NA (PORCINE) 40 MG/0.4 ML DISP.SYRIN SQ SCH (09:22)
[2020-08-07] MEDS: PANTOPRAZOLE SODIUM 40 MG VIAL IVPUSH SCH (09:22)
[2020-08-07] MEDS: clonazePAM 0.5 MG TABLET PO SCH (09:22)
== END 2020-08-07 15:06 | disposition home or self-care (01) | DRG 342 ==
LOC: FER 00:50 → FM/S 08:28
PROVIDERS: ADMIT Internal Medicine; ATTEND Internal Medicine
PROC: 0DTJ4ZZ Resection of Appendix, Percutaneous Endoscopic Approach (ICD-10-PCS; principal; 2020-08-04 12:58)
DX: K35.891 Other acute appendicitis without perforation, with gangrene (principal); K91.89 Other postprocedural complications and disorders of digestive system; K91.30 Postprocedural intestinal obstruction, unspecified as to partial versus complete; Y83.9 Surgical procedure, unspecified as the cause of abnormal reaction of the patient, or of later complication, without mention of misadventure at the time of the procedure; I10 Essential (primary) hypertension; E03.9 Hypothyroidism, unspecified; F25.9 Schizoaffective disorder, unspecified; E83.42 Hypomagnesemia; E66.9 Obesity, unspecified; Z68.28 Body mass index [BMI] 28.0-28.9, adult; K21.9 Gastro-esophageal reflux disease without esophagitis
CPT/HCPCS: 36415; 74018-TC-FY; 74019-TC-FY; 74177-TC; 80053; 81003; 82553; 82962; 83605; 83690; 83735; 84100; 84443; 84484; 85025; 85610; 85730; 86850; 86900; 86901; 87077; 87086; 88304-TC; 93005; 94760; 99285-25; C9803; J0131; U0003; U0005

== ENCOUNTER 2020-12-03 16:41 | Inpatient (IN) | payer OTHER ==
[2020-12-03 16:56] VITALS: BMI 29.4
[2020-12-03 17:51] LABS: HEMATOCRIT 38.3 % (35.4-49); RBC 4.03 M/mm3 (4.00-5.60)
[2020-12-03 17:53] LABS: BASO % 3.5 % (0-2.0); EOS % 4.2 % (0-4.5); HEMOGLOBIN 12.5 GM/dl (11.7-16.9); MCHC 32.6 g/dl (32.0-35.9); MEAN PLT VOLUME 8.1 fl (7.5-11.1); MONO % 10.6 % (3.8-10.2); NEUT % 58.7 % (42.8-82.8); PLATELET COUNT 219 10^3/uL (134-434); RDW 12.1 % (11.9-15.9)
[2020-12-03] MEDS ORDERED: ACETAMINOPHEN 1000 MG/100 ML VIAL (NON FORMULARY) IVPB ONE (17:54)
[2020-12-03] MEDS ORDERED: FAMOTIDINE 20 MG/50 ML IVPB 20 MG/50 ML MG IVPB ONE ×2 (17:55→18:07)
[2020-12-03 17:59] LABS: ALBUMIN 3.7 g/dl (3.4-5.0); BILIRUBIN,TOTAL 0.9 mg/dl (0.2-1); CALCIUM 8.6 mg/dl (8.5-10); CREATININE 0.9 mg/dl (0.55-1.3)
[2020-12-03] MEDS ORDERED: ACETAMINOPHEN INJECTION 100 ML IVPB ONE (18:07)
[2020-12-03] MEDS ORDERED: ASPIRIN 81 MG CHEWABLE TABLETS PO ONE (19:04)
[2020-12-03] MEDS ORDERED: ASPIRIN 81 MG CHEWABLE TABLETS ONE (19:32)
[2020-12-04] MEDS: LEVOTHYROXINE NA 100 MCG TABLET (FP) PO SCH (06:21)
[2020-12-04] MEDS: ASPIRIN COATED 81 MG TABLET.EC PO SCH (09:35)
[2020-12-04] MEDS ORDERED: OLANZapine 7.5 MG TABLET PO SCH (10:00)
[2020-12-04] MEDS: PANTOPRAZOLE 40 MG TABLET PO SCH (13:24)
[2020-12-04] MEDS ORDERED: DEXTROSE 5%-0.45% SALINE 1,000 ML IV SCH (18:45)
[2020-12-04] MEDS ORDERED: PANTOPRAZOLE SODIUM 40 MG VIAL IVPUSH ONE (20:25)
[2020-12-04] MEDS: guaiFENesin 200 MG/10 ML 10 ML UNIT-DOSE CUPS PO SCH (21:18)
[2020-12-05] MEDS: LEVOTHYROXINE NA 100 MCG TABLET (FP) PO SCH (06:22)
[2020-12-05] MEDS: guaiFENesin 200 MG/10 ML 10 ML UNIT-DOSE CUPS PO SCH ×3 (06:23→17:45)
[2020-12-05 08:05] LABS: BASO % 3.3 % (0-2.0); EOS % 4.9 % (0-4.5); HEMOGLOBIN 11.4 GM/dl (11.7-16.9); LYMPH % 23.8 % (8-40); MCH 30.7 pg (25.7-33.7); MCHC 31.7 g/dl (32.0-35.9); MEAN CELL VOLUME 96.8 fl (80-96); MEAN PLT VOLUME 7.9 fl (7.5-11.1); MONO % 9.7 % (3.8-10.2); NEUT % 58.3 % (42.8-82.8); PLATELET COUNT 213 10^3/uL (134-434); RBC 3.72 M/mm3 (4.00-5.60); RDW 13.1 % (11.9-15.9); WHITE BLOOD COUNT 4.8 K/mm3 (4.0-10.8)
[2020-12-05 08:11] LABS: ALBUMIN 3.1 g/dl (3.4-5.0); BILIRUBIN,TOTAL 0.9 mg/dl (0.2-1); CALCIUM 8.7 mg/dl (8.5-10); TOT PROT 6.2 g/dl (6.4-8.2)
[2020-12-05] MEDS: ASPIRIN COATED 81 MG TABLET.EC PO SCH (09:52)
[2020-12-05] MEDS: PANTOPRAZOLE 40 MG TABLET PO SCH (09:52)
[2020-12-05 19:47] VITALS: BP 146/82; PULSE 72; TEMP 98
[2020-12-05] MEDS ORDERED: OLANZAPINE 5 MG, OLANZAPINE 2.5 MG PO SCH (22:00)
== END 2020-12-05 20:10 | disposition home or self-care (01) | DRG 390 ==
LOC: FER 16:41 → FM/S 19:07 → OBSVTOIN 12-04 18:45
PROVIDERS: ADMIT Internal Medicine; ATTEND Internal Medicine
DX: K56.7 Ileus, unspecified (principal); I10 Essential (primary) hypertension; F25.9 Schizoaffective disorder, unspecified; E03.9 Hypothyroidism, unspecified; G40.909 Epilepsy, unspecified, not intractable, without status epilepticus; E11.9 Type 2 diabetes mellitus without complications; F03.90 Unspecified dementia, unspecified severity, without behavioral disturbance, psychotic disturbance, mood disturbance, and anxiety; K21.9 Gastro-esophageal reflux disease without esophagitis; E78.5 Hyperlipidemia, unspecified; R10.13 Epigastric pain; K80.20 Calculus of gallbladder without cholecystitis without obstruction; E66.9 Obesity, unspecified; Z68.25 Body mass index [BMI] 25.0-25.9, adult
CPT/HCPCS: 36415; 71045-TC-FY; 74018-TC-FY; 74019-TC-FY; 76700-TC; 80053; 82550; 82553; 83605; 84484; 85025; 87040; 93005; 99285-25; C9803; G0378; J0131; U0003; U0005

== ENCOUNTER 2021-08-27 20:20 | Inpatient (IN) | payer OTHER ==
[2021-08-27] MEDS ORDERED: SODIUM CHLORIDE 1,000 ML ONE (20:59)
[2021-08-27] MEDS ORDERED: ONDANSETRON 4 MG/2 ML VIAL IVPB ONE (20:59)
[2021-08-27] MEDS ORDERED: FAMOTIDINE 20 MG/50 ML IVPB 20 MG/50 ML MG IVPB ONE ×2 (21:02→21:07)
[2021-08-27] MEDS ORDERED: ONDANSETRON 4 MG/2 ML VIAL ONE (21:06)
[2021-08-27 21:17] LABS: HEMOGLOBIN 13.4 G/dL (11.7-16.9); MCH 33.1 pg (25.7-33.7); MCHC 35.4 g/dl (32.0-35.9); MEAN CELL VOLUME 93.5 fl (80-96); MEAN PLT VOLUME 7.4 fl (7.5-11.1); PLATELET COUNT 158.8 10^3/uL (134-434); RBC 4.06 10^6/uL (4.00-5.60); RDW 13.4 % (11.9-15.9); WHITE BLOOD COUNT 9.1 10^3/uL (4.0-10.8)
[2021-08-27 21:29] LABS: ALBUMIN 4.5 g/dl (3.4-5.0); BILIRUBIN,TOTAL 0.9 mg/dl (0.2-1); CALCIUM 9.2 mg/dl (8.5-10); CREATININE 1.2 mg/dl (0.55-1.3); TOT PROT 7.9 g/dl (6.4-8.2)
[2021-08-27 21:34] LABS: ANISOCYTOSIS 1+
[2021-08-27] MEDS ORDERED: METOCLOPRAMIDE HCL INJECTION 10 MG/2 ML VIAL ONE (22:58)
[2021-08-27] MEDS ORDERED: METOCLOPRAMIDE HCL INJECTION 10 MG/2 ML VIAL IVPB ONE (22:59)
[2021-08-28 02:32] VITALS: BMI 25.2
[2021-08-28] MEDS: FAMOTIDINE 20 MG/50 ML IVPB 20 MG/50 ML MG IVPB SCH ×2 (09:56→21:35)
[2021-08-28] MEDS: DEXTROSE 5%-0.45% SALINE 1,000 ML IV SCH (09:59)
[2021-08-28] MEDS: ONDANSETRON 4 MG/2 ML VIAL IVPB PRN ×2 (12:51→20:54)
[2021-08-29] MEDS: ONDANSETRON 4 MG/2 ML VIAL IVPB PRN (06:18)
[2021-08-29 08:10] LABS: HEMATOCRIT 35.4 % (35.4-49); HEMOGLOBIN 12.3 G/dL (11.7-16.9); MCH 32.7 pg (25.7-33.7); MCHC 34.7 g/dl (32.0-35.9); MEAN CELL VOLUME 94.5 fl (80-96); MEAN PLT VOLUME 7.8 fl (7.5-11.1); PLATELET COUNT 126.8 10^3/uL (134-434); RBC 3.75 10^6/uL (4.00-5.60); RDW 14.1 % (11.9-15.9); WHITE BLOOD COUNT 7.4 10^3/uL (4.0-10.8)
[2021-08-29 08:12] LABS: ALBUMIN 3.6 g/dl (3.4-5.0); BILIRUBIN,TOTAL 0.8 mg/dl (0.2-1); CALCIUM 8.2 mg/dl (8.5-10); CREATININE 1.7 mg/dl (0.55-1.3); TOT PROT 6.6 g/dl (6.4-8.2)
[2021-08-29] MEDS: DEXTROSE 5%-0.45% SALINE 1,000 ML IV SCH (09:33)
[2021-08-29] MEDS: FAMOTIDINE 20 MG/50 ML IVPB 20 MG/50 ML MG IVPB SCH ×2 (09:33→22:03)
[2021-08-29] MEDS ORDERED: DEXTROSE 5%-0.45% SALINE 1,000 ML IV SCH (19:28)
[2021-08-29] MEDS ORDERED: SODIUM CHLORIDE 0.9% 500 ML INFUS.BAG IV ONE (19:57)
[2021-08-29] MEDS: OLANZapine 2.5 MG TABLET PO SCH (22:03)
[2021-08-30] MEDS: LEVOTHYROXINE NA 50 MCG TABLET (FP) PO SCH (06:42)
[2021-08-30] MEDS: FAMOTIDINE 20 MG/50 ML IVPB 20 MG/50 ML MG IVPB SCH ×2 (10:13→22:40)
[2021-08-30 15:23] LABS: ALBUMIN 3.5 g/dl (3.4-5.0); BILIRUBIN,TOTAL 0.6 mg/dl (0.2-1); CALCIUM 8.6 mg/dl (8.5-10); TOT PROT 6.9 g/dl (6.4-8.2)
[2021-08-30] MEDS: OLANZapine 2.5 MG TABLET PO SCH (22:40)
[2021-08-31] MEDS: LEVOTHYROXINE NA 50 MCG TABLET (FP) PO SCH (06:18)
[2021-08-31 06:48] VITALS: BP 140/77; PULSE 86; TEMP 97.8
== END 2021-08-31 09:29 | disposition home or self-care (01) | DRG 641 ==
LOC: FER 20:20 → FM/S 23:06 → UNDOADMIN 08-28 01:26 → FM/S 08-28 01:26
PROVIDERS: ADMIT Internal Medicine; ATTEND Internal Medicine
DX: E86.0 Dehydration (principal); K21.9 Gastro-esophageal reflux disease without esophagitis; E03.9 Hypothyroidism, unspecified; F25.8 Other schizoaffective disorders; I10 Essential (primary) hypertension; E78.5 Hyperlipidemia, unspecified; E53.8 Deficiency of other specified B group vitamins; R00.1 Bradycardia, unspecified; R10.13 Epigastric pain; K52.9 Noninfective gastroenteritis and colitis, unspecified
CPT/HCPCS: 36415; 71045-TC-FY; 74018-TC-FY; 74177-TC; 80053; 82550; 82553; 83690; 84484; 85025; 93005; 99285-25; C9803-CS; Q9967; U0003; U0005

== ENCOUNTER 2022-08-05 19:09 | Emergency (ER) | payer OTHER ==
[2022-08-05] MEDS ORDERED: SODIUM CHLORIDE 0.9% 500 ML INFUS.BAG IV ONE (19:13)
[2022-08-05] MEDS ORDERED: ONDANSETRON 4 MG TABLET PO ONE (19:14)
[2022-08-05] MEDS ORDERED: MAG HYDROX/AL HYDROX/SIMETH 30 ML UNIT-DOSE CUP PO ONE (19:14)
[2022-08-05 19:28] VITALS: TEMP 98.7; BMI 23.8
[2022-08-05] MEDS ORDERED: ONDANSETRON *ODT* 4 MG TABLET ONE (19:39)
[2022-08-05] MEDS ORDERED: MAG HYDROX/AL HYDROX/SIMETH 30 ML UNIT-DOSE CUP ONE (19:39)
[2022-08-05 20:02] LABS: HEMATOCRIT 38.3 % (35.4-49); HEMOGLOBIN 12.8 G/dL (11.7-16.9); MCH 32.2 pg (25.7-33.7); MCHC 33.5 g/dl (32.0-35.9); MEAN CELL VOLUME 96.3 fl (80-96); PLATELET COUNT 162.8 10^3/uL (134-434); RBC 3.98 10^6/uL (4.00-5.60); RDW 13.9 % (11.9-15.9)
[2022-08-05 20:09] LABS: PLATELET ESTIMATE ADEQUATE
[2022-08-05 20:16] LABS: ALBUMIN 4.2 g/dl (3.4-5.0); BILIRUBIN,TOTAL 0.6 mg/dl (0.2-1); CALCIUM 8.9 mg/dl (8.5-10); CREATININE 1.1 mg/dl (0.55-1.3); POTASSIUM 3.9 mmol/L (3.5-5.1); TOT PROT 7.8 g/dl (6.4-8.2)
[2022-08-05 21:15] VITALS: BP 128/76; PULSE 76; RESP 16
== END 2022-08-05 21:19 | disposition home or self-care (01) ==
LOC: FER 19:09
DX: R11.0 Nausea (principal); Z20.822 Contact with and (suspected) exposure to COVID-19
CPT/HCPCS: 36415; 71045-TC-FY; 80053; 83690; 84484; 85027; 93005; 99285-25; C9803-CS; U0003; U0005

== ENCOUNTER 2023-04-24 23:17 | Emergency (ER) | payer OTHER ==
[2023-04-24 23:29] VITALS: RESP 16; TEMP 98.1; BMI 23.8
[2023-04-24] MEDS ORDERED: PANTOPRAZOLE SODIUM 40 MG VIAL IVPUSH ONE (23:38)
[2023-04-24 23:39] VITALS: BP 106/75; PULSE 65
[2023-04-24] MEDS ORDERED: PANTOPRAZOLE SODIUM 40 MG VIAL ONE (23:45)
[2023-04-24] MEDS ORDERED: DIPHENOXYLATE 2.5/ATROPINE.025 1 COMBO TABLET PO ONE (23:47)
[2023-04-25 00:26] LABS: HEMATOCRIT 38.9 % (35.4-49); HEMOGLOBIN 13.2 GM/dL (11.7-16.9); MCH 31.8 pg (25.7-33.7); MCHC 33.9 g/dl (32.0-35.9); MEAN CELL VOLUME 93.8 fl (80-96); MEAN PLT VOLUME 7.7 fl (7.5-11.1); PLATELET COUNT 185 10^3/uL (134-434); RBC 4.15 M/mm3 (4.00-5.60); RDW 12.9 % (11.9-15.9); WHITE BLOOD COUNT 5.8 K/mm3 (4.0-10.0)
[2023-04-25 00:33] LABS: BLOOD UREA NITROGEN 23.9 mg/dL (7-18); CALCIUM 8.9 mg/dL (8.5-10.1)
[2023-04-25 00:34] LABS: ALBUMIN 3.8 g/dl (3.4-5.0)
[2023-04-25 00:36] LABS: CREATININE 1.1 mg/dL (0.55-1.3)
[2023-04-25 00:38] LABS: BILIRUBIN,TOTAL 0.6 mg/dL (0.2-1); TOT PROT 7.9 g/dl (6.4-8.2)
[2023-04-25] MEDS ORDERED: ACETAMINOPHEN 1000 MG/100 ML BAG IVPB ONE (00:54)
[2023-04-25] MEDS ORDERED: ACETAMINOPHEN INJECTION 100 ML IVPB ONE (00:55)
== END 2023-04-25 07:02 | disposition home or self-care (01) ==
LOC: FER 23:17
PROC: 3E033NZ Introduction of Analgesics, Hypnotics, Sedatives into Peripheral Vein, Percutaneous Approach (ICD-10-PCS; principal; 2023-04-24)
PROC: 3E033GC Introduction of Other Therapeutic Substance into Peripheral Vein, Percutaneous Approach (ICD-10-PCS; 2023-04-25)
DX: M54.6 Pain in thoracic spine (principal); R07.9 Chest pain, unspecified; R10.13 Epigastric pain
CPT/HCPCS: 36415; 71045-TC-FY; 80053; 82550; 84484; 85027; 93005; 99285-25

== ENCOUNTER 2023-10-23 08:31 | Emergency (ER) | payer OTHER ==
[2023-10-23 09:22] VITALS: BP 137/99; PULSE 51; RESP 18; TEMP 97.3; BMI 22.4
== END 2023-10-23 11:02 | disposition home or self-care (01) ==
LOC: FER 08:31
DX: R05.3 Chronic cough (principal)
CPT/HCPCS: 71046-TC-FY; 99283-25

== ENCOUNTER 2023-12-05 20:05 | Observation (INO) | payer OTHER ==
[2023-12-05] MEDS ORDERED: ONDANSETRON 4 MG/2 ML VIAL ONE (20:33)
[2023-12-05] MEDS ORDERED: FAMOTIDINE 20 MG/50 ML IVPB 20 MG/50 ML MG IVPB ONE (20:34)
[2023-12-05] MEDS ORDERED: MAG HYDROX/AL HYDROX/SIMETH 30 ML UNIT-DOSE CUP ONE (20:34)
[2023-12-05] MEDS: SODIUM CHLORIDE 0.9% 500 ML INFUS.BAG IV ONE (20:36)
[2023-12-05] MEDS: FAMOTIDINE 20 MG/50 ML IVPB 20 MG in PREMIX 50 IVPB ONE (20:37)
[2023-12-05] MEDS: ONDANSETRON 4 MG/2 ML VIAL IVPB ONE (20:37)
[2023-12-05 20:57] LABS: HEMATOCRIT 39.2 % (35.4-49); MCH 31.8 pg (25.7-33.7); MCHC 33.2 g/dl (32.0-35.9); MEAN CELL VOLUME 95.7 fl (80-96); MEAN PLT VOLUME 7.8 fl (7.5-11.1); PLATELET COUNT 144.6 10^3/uL (134-434); RDW 13.8 % (11.9-15.9); WHITE BLOOD COUNT 6.1 10^3/uL (4.0-10.8)
[2023-12-05 21:07] LABS: ALBUMIN 4.4 g/dl (3.4-5.0); CREATININE 1.7 mg/dl (0.6-1.3); POTASSIUM 3.5 mmol/L (3.5-5.1); TOT PROT 7.5 g/dl (6.4-8.2)
[2023-12-05] MEDS: MAG HYDROX/AL HYDROX/SIMETH -MYLANTA- ORAL SUSPENSION PO ONE (21:16)
[2023-12-05 21:17] LABS: VENOUS O2 SATURATION 68.4 % (70-80); VENOUS PCO2 43.9 mmHg (38-52); VENOUS PH 7.38 (7.310-7.410)
[2023-12-05 21:57] LABS: PLATELET ESTIMATE ADEQUATE
[2023-12-06] MEDS ORDERED: ONDANSETRON 4 MG/2 ML VIAL IVPUSH PRN (00:58)
[2023-12-06 01:07] VITALS: BMI 49.3
[2023-12-06] MEDS: SODIUM CHLORIDE 1,000 ML IV SCH (01:18)
[2023-12-06] MEDS: LEVOTHYROXINE SODIUM 100 MCG 5 ML VIAL IVPUSH SCH (08:51)
[2023-12-06 09:26] LABS: CALCIUM 8.4 mg/dl (8.5-10.1); CREATININE 1.4 mg/dl (0.6-1.3); POTASSIUM 3.7 mmol/L (3.5-5.1)
[2023-12-06] MEDS ORDERED: FAMOTIDINE 20 MG/50 ML IVPB 20 MG/50 ML MG IVPB SCH (10:00)
[2023-12-06] MEDS: POLYETHYLENE GLYCOL (HEALTHYLAX) 3350 17 GM PACKET PO SCH (10:34)
[2023-12-06] MEDS: FAMOTIDINE 20 MG/50 ML IVPB 20 MG/50 ML MG IVPB SCH (10:34)
[2023-12-06] MEDS: levETIRAcetam 500 MG/5 ML INJECTION VIAL IVPB SCH (10:34)
[2023-12-06] MEDS: DOCUSATE SODIUM 100 MG CAPSULE (FP) PO SCH (10:34)
[2023-12-06] MEDS: DONEPEZIL HCL 10 MG TABLET (FP) PO SCH (10:34)
[2023-12-06] MEDS: OLANZapine 7.5 MG TABLET PO SCH (10:37)
[2023-12-06 11:39] LABS: BASO % 0.3 % (0-2.0); EOS % 2.4 % (0-4.5); HEMATOCRIT 37.8 % (35.4-49); HEMOGLOBIN 12.6 GM/dL (11.7-16.9); LYMPH % 17.7 % (8-40); MCH 31.6 pg (25.7-33.7); MCHC 33.4 g/dl (32.0-35.9); MEAN CELL VOLUME 94.7 fl (80-96); MEAN PLT VOLUME 8.2 fl (7.5-11.1); MONO % 12.8 % (3.8-10.2); NEUT % 66.8 % (42.8-82.8); PLATELET COUNT 144 10^3/uL (134-434); RBC 3.99 M/mm3 (4.00-5.60); RDW 13.2 % (11.9-15.9); WHITE BLOOD COUNT 7.5 K/mm3 (4.0-10.0)
[2023-12-07 08:27] LABS: HEMATOCRIT 33.9 % (35.4-49); HEMOGLOBIN 11.1 G/dL (11.7-16.9); MCH 31.5 pg (25.7-33.7); MCHC 32.6 g/dl (32.0-35.9); MEAN CELL VOLUME 96.7 fl (80-96); MEAN PLT VOLUME 8.5 fl (7.5-11.1); PLATELET COUNT 104.3 10^3/uL (134-434); RBC 3.51 10^6/uL (4.00-5.60); RDW 13.6 % (11.9-15.9); WHITE BLOOD COUNT 5.3 10^3/uL (4.0-10.8)
[2023-12-07 09:01] LABS: CALCIUM 8.3 mg/dl (8.5-10.1); CREATININE 0.9 mg/dl (0.6-1.3); MAGNESIUM 1.7 mg/dL (1.8-2.4); PHOSPHOROUS 1.5 (2.5-4.9); POTASSIUM 4.1 mmol/L (3.5-5.1)
[2023-12-07 09:15] LABS: PLATELET ESTIMATE ADEQUATE
[2023-12-07] MEDS: NAPH,MB-DB/K PH,MBDB POWDER PACKET PO ONE (09:51)
[2023-12-07] MEDS: MAGNESIUM OXIDE 400 MG TABLET (FP) PO ONE (09:51)
[2023-12-08] MEDS: OLANZAPINE 5 MG, OLANZAPINE 2.5 MG PO SCH (10:05)
[2023-12-08 12:59] VITALS: BP 140/86; PULSE 50; RESP 19; TEMP 97.5
== END 2023-12-08 15:41 | disposition home or self-care (01) ==
LOC: FER 20:05 → FM/S 23:20 → UNDOADMOB 23:20 → FM/S 12-06 00:25 → INTOOBSV 12-06 00:25 → FM/S 12-06 00:54 → UNDOADMOB 12-06 00:54
PROVIDERS: ADMIT Internal Medicine; ATTEND Internal Medicine
PROC: 3E033GC Introduction of Other Therapeutic Substance into Peripheral Vein, Percutaneous Approach (ICD-10-PCS; principal; 2023-12-06)
PROC: 3E0337Z Introduction of Electrolytic and Water Balance Substance into Peripheral Vein, Percutaneous Approach (ICD-10-PCS; 2023-12-06)
PROC: 3E033GC Introduction of Other Therapeutic Substance into Peripheral Vein, Percutaneous Approach (ICD-10-PCS; 2023-12-06)
DX: N17.9 Acute kidney failure, unspecified (principal); R11.2 Nausea with vomiting, unspecified; I10 Essential (primary) hypertension; E03.9 Hypothyroidism, unspecified; G40.909 Epilepsy, unspecified, not intractable, without status epilepticus; F20.9 Schizophrenia, unspecified; L80 Vitiligo
CPT/HCPCS: 36415; 71045-TC-FY; 74176-TC; 80048; 80053; 81003; 82803; 83605; 83690; 83735; 84100; 84484; 85025; 85027; 87045; 87046; 93005; 96365; 96375; 99285-25; G0378

== ENCOUNTER 2024-04-09 22:30 | Emergency (ER) | payer OTHER ==
[2024-04-09 22:35] VITALS: RESP 16; BMI 22.4
[2024-04-09] MEDS ORDERED: ACETAMINOPHEN 500 MG TABLET (FP) ONE (22:39)
[2024-04-09] MEDS: ACETAMINOPHEN 500 MG TABLET (FP) PO ONE (22:40)
[2024-04-09 22:42] VITALS: BP 144/96; PULSE 64; TEMP 97.8
[2024-04-09 23:49] LABS: THROAT:GRP A STREP NOT DETECTED (NOTDETECTED)
== END 2024-04-09 23:11 | disposition home or self-care (01) ==
LOC: FER 22:30
DX: J02.9 Acute pharyngitis, unspecified (principal); Z20.822 Contact with and (suspected) exposure to COVID-19
CPT/HCPCS: 0241U-QW; 87651; 99283-25

== ENCOUNTER 2024-09-06 19:49 | Emergency (ER) | payer OTHER ==
[2024-09-06 19:56] VITALS: BP 156/97; PULSE 78; RESP 16; TEMP 99; BMI 24.4
[2024-09-06] MEDS ORDERED: AZITHROMYCIN 500 MG TABLET ONE (20:08)
[2024-09-06] MEDS: AZITHROMYCIN 250 MG TABLET PO ONE (20:09)
== END 2024-09-06 20:13 | disposition home or self-care (01) ==
LOC: FER 19:49
DX: J40 Bronchitis, not specified as acute or chronic (principal); R05.9 Cough, unspecified; R50.9 Fever, unspecified
CPT/HCPCS: 0241U-QW; 99283-25